=== PATIENT | female | born 1930 | race Caucasian/White ===

== ENCOUNTER 2018-06-26 08:14 | Inpatient (IN) | payer MEDICARE ==
[~2018-06-26] VITALS: Ht 165.1 cm; Wt 75.4 kg
[2018-06-26] VITALS (12 sets, daily range): BP systolic 73–132; BP diastolic 36–65
[~2018-06-26 08:14] MED LIST: ALEN70TA3 PO; ALLO300T PO; AMLO10TA6 PO; ASCO500T3 PO; ASPI-482 PO; CARV25TA2 PO; CHOL10003 PO; CYAN10005 PO; DONE10TA61 PO; DULO30CA2 PO; ENAL20TA4 PO; FERR325T3 PO; FURO-68 PO; GLIP5TAB10 PO; LEVO100T PO; MEMA10TA PO; MULT-208 PO; OXYB5TAB33 PO
--- NOTE | 2018-06-26 08:41 | EKG ---
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
[2018-06-26 08:53] LABS: BASO % 0 % (0-3); EOS # 0.1 x10^3/uL (0.0-0.7); EOS % 0 % (0-3); HEMATOCRIT 36.5 % (36.0-47.0); HEMOGLOBIN 11.7 g/dL (12.0-15.5); LYMPH # 1.1 x10^3/uL (1.0-4.8); LYMPH % 8 % (24-48); MEAN CORPUSCULAR HEMOGLOBIN 31 pg (25-35); MEAN CORPUSCULAR HGB CONC 32 g/dL (31-37); MEAN CORPUSCULAR VOLUME 95 fL (79-100); MONO # 0.3 x10^3/uL (0.0-1.1); MONO % 3 % (0-9); NEUT # 11.8 x10^3uL (1.8-7.7); NEUT % 89 % (31-73); PLATELET COUNT 238 x10^3/uL (140-400); RED BLOOD COUNT 3.85 x10^6/uL (3.50-5.40); RED CELL DISTRIBUTION WIDTH 14.5 % (11.5-14.5); WHITE BLOOD COUNT 13.3 x10^3/uL (4.0-11.0)
--- NOTE | 2018-06-26 08:54 | RAD ---
Portable chest, 06/26/2018: HISTORY: Altered mental status, hypothermia Comparison is made to a study from 12/01/2017. The patient is rotated to the left. The patient positioning is kyphotic. The heart is at the upper limits of normal in size. There is extensive calcific plaquing of the aorta. There is mild left basilar atelectasis/infiltrate. The upper lung gamino are clear. No pleural fluid is seen. IMPRESSION: 1. Mild left basilar atelectasis/infiltrate. 2. Follow-up PA and lateral chest radiographs would better delineate the basilar findings, if clinically indicated. Electronically signed by: Jj Arcos MD (06/26/2018 8:51 AM) [facility]
[2018-06-26 09:00] LABS: BILIRUBIN,URINE NEGATIVE (NEG); CLARITY,URINE CLEAR; COLOR,URINE YELLOW; NITRITE,URINE POSITIVE (NEG); PROTEIN,URINE NEGATIVE (NEG-TRACE); UROBILINOGEN,URINE 0.2 mg/dL (0.2 mg/dL)
[2018-06-26 09:02] LABS: PROTHROMBIN TIME PATIENT 13.8 SEC (11.7-14.0)
[2018-06-26 09:06] LABS: CALCIUM 9.1 mg/dL (8.5-10.1); CREATININE 1.7 mg/dL (0.6-1.0); GFR 28.4
[2018-06-26 09:08] LABS: ALBUMIN 3.6 g/dL (3.4-5.0); ALBUMIN/GLOBULIN RATIO 1.2 (1.0-1.7); MAGNESIUM 1.9 mg/dL (1.8-2.4); TOTAL BILIRUBIN 0.7 mg/dL (0.2-1.0); TOTAL PROTEIN 6.7 g/dL (6.4-8.2)
--- NOTE | 2018-06-26 09:09 | PHYS DOC ---
Past Medical History Past Medical History: Cancer, CHF, COPD, [place], Other Additional Past Medical Histor: BONE CANCER - PT POOR HISTORIAN Past Surgical History: Other Additional Past Surgical Histo: R LOWER LEG Alcohol Use: None Drug Use: None Adult General Chief Complaint Chief Complaint: COLD EXPOSURE HPI HPI Patient is an 87-year-old female who presents via EMS after reportedly being found outside very confused by patient's children. Patient apparently had gotten locked out of her home last night and was found sleeping under an awning. EMS reports that they were unable to obtain a temperature on the patient. Upon arrival patient clearly confused, denies pain. Additional history is limited due to patient's mental status. Review of Systems Review of Systems Respiratory: Denies shortness of breath [] Cardiovascular: Denies chest pain[] GI: Denies abdominal pain [] Neurologic: Positive mental status change[] Unable to fully assess review of systems due to patient's middle status. Current Medications Current Medications Current Medications Medications (Trade) Dose Ordered Sig/Robe Start Time Stop Time Status Last Admin Dose Admin Ceftriaxone Sodium 50 ml @ 100 mls/hr 1X ONCE 06/26/18 09:30 06/26/18 09:59 DC 06/26/18 09:56 100 MLS/HR Insulin Human Regular (HumuLIN R VIAL) 6 unit 1X ONCE 06/26/18 09:30 06/26/18 09:31 DC 06/26/18 09:54 6 UNIT Sodium Chloride 1,000 ml @ 1,000 mls/hr 1X ONCE 06/26/18 09:15 06/26/18 10:14 DC 06/26/18 09:55 1,000 MLS/HR Allergies Allergies Allergies Coded Allergies Type Severity Reaction Last Updated Verified No Known Drug Allergies 11/14/16 No Physical Exam Physical Exam Constitutional: Well developed, well nourished, no acute distress, non-toxic appearance. [] HENT: Normocephalic, atraumatic, bilateral external ears normal, oropharynx moist, no oral exudates, nose normal. [] Eyes: PERRLA, EOMI. [] Neck: Normal range of motion, no tenderness, supple, no stridor. [] Cardiovascular:Heart rate regular rhythm [] Lungs & Thorax: Bilateral breath sounds clear to auscultation [] Abdomen: Bowel sounds normal, soft, no tenderness. [] Skin: Cool, dry. There are abrasions with moderate breakdown of skin over bilateral knees and dorsum of toes of both feet. [] Extremities: No cyanosis, no clubbing, ROM intact, lower extremity edema is noted bilaterally. [] Neurologic: Confused. Patient moves all 4 extremities. Unable to fully assess neurological status due to patient's mental state. [] Current Patient Data Vital Signs Vital Signs Date Time Temp Pulse Resp B/P (MAP) Pulse Ox O2 Delivery O2 Flow Rate FiO2 06/26/18 08:30 82 146/70 (95) 98 Nasal Cannula 3.0 06/26/18 08:14 89.5 18 89.5 Lab Values Laboratory Tests Test 06/26/18 08:22 06/26/18 08:38 06/26/18 08:52 Glucose (Fingerstick) 428 mg/dL (70-99) H White Blood Count 13.3 x10^3/uL (4.0-11.0) H Red Blood Count 3.85 x10^6/uL (3.50-5.40) Hemoglobin 11.7 g/dL (12.0-15.5) L Hematocrit 36.5 % (36.0-47.0) Mean Corpuscular Volume 95 fL (79-100) Mean Corpuscular Hemoglobin 31 pg (25-35) Mean Corpuscular Hemoglobin Concent 32 g/dL (31-37) Red Cell Distribution Width 14.5 % (11.5-14.5) Platelet Count 238 x10^3/uL (140-400) Neutrophils (%) (Auto) 89 % (31-73) H Lymphocytes (%) (Auto) 8 % (24-48) L Monocytes (%) (Auto) 3 % (0-9) Eosinophils (%) (Auto) 0 % (0-3) Basophils (%) (Auto) 0 % (0-3) Neutrophils # (Auto) 11.8 x10^3uL (1.8-7.7) H Lymphocytes # (Auto) 1.1 x10^3/uL (1.0-4.8) Monocytes # (Auto) 0.3 x10^3/uL (0.0-1.1) Eosinophils # (Auto) 0.1 x10^3/uL (0.0-0.7) Basophils # (Auto) 0.0 x10^3/uL (0.0-0.2) Platelet Estimate Pending Prothrombin Time 13.8 SEC (11.7-14.0) Prothrombin Time INR 1.1 (0.8-1.1) Sodium Level 139 mmol/L (136-145) Potassium Level 5.0 mmol/L (3.5-5.1) Chloride Level 99 mmol/L (98-107) Carbon Dioxide Level 30 mmol/L (21-32) Anion Gap 10 (6-14) Blood Urea Nitrogen 38 mg/dL (7-20) H Creatinine 1.7 mg/dL (0.6-1.0) H Estimated GFR (Cockcroft-Gault) 28.4 BUN/Creatinine Ratio 22 (6-20) H Glucose Level 425 mg/dL (70-99) H Calcium Level 9.1 mg/dL (8.5-10.1) Magnesium Level 1.9 mg/dL (1.8-2.4) Total Bilirubin 0.7 mg/dL (0.2-1.0) Aspartate Amino Transferase (AST) 16 U/L (15-37) Alanine Aminotransferase (ALT) 21 U/L (14-59) Alkaline Phosphatase 212 U/L (46-116) H Ammonia 11 mcmol/L (11-34) Creatine Kinase 193 U/L (26-192) H Creatine Kinase MB (Mass) 3.1 ng/mL (0.0-3.6) Creatine Kinase MB Relative Index 1.6 % (0-4) Troponin I Quantitative < 0.017 ng/mL (0.000-0.055) Total Protein 6.7 g/dL (6.4-8.2) Albumin 3.6 g/dL (3.4-5.0) Albumin/Globulin Ratio 1.2 (1.0-1.7) Urine Collection Type U cath Urine Color Yellow Urine Clarity Clear Urine pH 6.0 Urine Specific [place] 1.015 Urine Protein Negative mg/dL (NEG-TRACE) Urine Glucose (UA) 100 mg/dL (NEG) Urine Ketones (Stick) Negative mg/dL (NEG) Urine Blood Negative (NEG) Urine Nitrite Positive (NEG) Urine Bilirubin Negative (NEG) Urine Urobilinogen Dipstick 0.2 mg/dL (0.2 mg/dL) Urine Leukocyte Esterase Negative (NEG) Urine RBC Rare /HPF (0-2) Urine WBC Rare /HPF (0-4) Urine Squamous Epithelial Cells Occ /LPF Urine Amorphous Sediment Present /HPF Urine Bacteria Many /HPF (0-FEW) Laboratory Tests 06/26/18 08:38 Laboratory Tests 06/26/18 08:38 EKG EKG [] Interpretation Time: EKG demonstrates normal sinus rhythm with heart rate of 80. Radiology/Procedures Radiology/Procedures [] Impressions: CT head demonstrates no acute process. Portable chest x-ray demonstrates findings of left basilar atelectasis versus infiltrate Course & Med Decision Making Course & Med Decision Making Pertinent Labs and Imaging studies reviewed. (See chart for details) [] Dragon Disclaimer Dragon Disclaimer This electronic medical record was generated, in whole or in part, using a voice recognition dictation system. Departure Departure Impression: Primary Impression: Hypothermia Additional Impression: Urinary tract infection Disposition: ADMITTED INPATIENT Admitting Physician: Nikita Hensley Condition: IMPROVED Referrals: DOROTEO CISNEROS MD (PCP) Problem Qualifiers Primary Impression: Hypothermia Encounter type: initial encounter Qualified Codes: T68.XXXA - Hypothermia, initial encounter Additional Impression: Urinary tract infection Urinary tract infection type: site unspecified Hematuria presence: without hematuria Qualified Codes: N39.0 - Urinary tract infection, site not specified CHANDRA HOLLINS Jr., DO Jun 26, 2018 09:09
[2018-06-26 09:13] LABS: AMORPHOUS SEDIMENT,UR PRESENT /HPF; BACTERIA,URINE MANY /HPF (0-FEW); RBC,URINE RARE /HPF (0-2); SQUAMOUS EPITHELIAL CELL,UR OCC /LPF; WBC,URINE RARE /HPF (0-4)
[2018-06-26] MEDS ORDERED: IV NORMAL SALINE 1000ML BAG 1,000 ML IV ONE ×2 (09:15→12:00)
[2018-06-26] MEDS ORDERED: INSULIN REGULAR 100 UNIT/ML 3ML VIAL. IV ONE (09:30)
--- NOTE | 2018-06-26 09:46 | RAD ---
CT HEAD WO CONTRAST Indication: Disoriented. Altered mental status. Exposure: One or more of the following individualized dose reduction techniques were utilized for this examination: 1. Automated exposure control 2. Adjustment of the mA and/or kV according to patient size 3. Use of iterative reconstruction technique. Comparison: Images from November 12, 2017, report is not available. Contrast: None FINDINGS: Mild patchy hypodensity in the cerebellum, unchanged, likely due to chronic ischemia. No evidence of acute intracranial hemorrhage or abnormal extra-axial fluid collection. No evidence of mass effect or midline shift. Low-density in the white matter bilaterally, a nonspecific finding, but which is commonly due to chronic small vessel ischemic disease in a patient of this age. Prominence of ventricles and sulci, compatible with involutional change or atrophy. Intracranial arterial calcifications are identified. Several well-defined low-attenuation foci in the bilateral white matter, likely due to chronic lacunar infarcts, also seen on prior study. Area of right posterior parietal low-attenuation is also unchanged, compatible with chronic encephalomalacia. Visualized orbits are unremarkable. Visualized paranasal sinuses and mastoids are clear. No acute calvarial abnormality. Impression: Chronic findings, stable since prior study. No acute intracranial hemorrhage or mass effect. Electronically signed by: Radames Faye MD (06/26/2018 9:43 AM) [facility]
[2018-06-26 10:41] LABS: % BANDS 1 % (0-9); % BASOS 2 % (0-3); % EOS 1 % (0-5); % LYMPHS 12 % (24-48); % MONOS 6 % (0-10); % SEGS 78 % (35-66)
[2018-06-26 10:43] LABS: PLT ESTIMATE ADEQUATE (ADEQUATE)
--- NOTE | 2018-06-26 12:19 | HP ---
ADMIT DATE: 06/26/2018 CHIEF COMPLAINT: Found in the cold. HISTORY OF PRESENT ILLNESS: The patient is a pleasant 87-year-old female who lives by herself, but she does have dementia. She has never wanted to wait before, but last night apparently, she got out. It got pretty cold last night, down into the 40. She was found this morning, sitting on her knees, hold onto her walker. Her knees are scuffed up. The top of her toes are scuffed up. She is hypothermic with a temperature of 89. I have discussed the case with the ER physician. We are going to admit the patient with a Alexis Hugger to warm her up and give her some fluids. 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 ALLERGIES: None. FAMILY HISTORY: Hypertension. SOCIAL HISTORY: She has dementia. She lives alone. No drinking, smoking or drugs. MEDICATIONS: Reviewed, please refer to the MRAD. REVIEW OF SYSTEMS: Unable to obtain. The patient is too confused. PHYSICAL EXAMINATION: VITAL SIGNS: Temperature was 89 when she arrived. We got her up to 97 now, pulse 80-100, respirations 20, blood pressure ranging from 112-153. GENERAL: She is awake, confused. HEART: Normal S1, S2. LUNGS: Clear. ABDOMEN: Soft. EXTREMITIES: 1+ edema. The toes and knees are quite scraped up, please see the pictures. ENDOCRINE: No thyromegaly. LYMPHATICS: No cervical nodes. HEMATOPOIETIC: No bruising. LABORATORY DATA: White count is 13, hemoglobin 11.7, and platelets 238. Ammonia level is normal at 11. CPK 193, anion gap was 10. Sodium 139, potassium 5, chloride 99, bicarbonate 30, BUN 38, creatinine 1.7. ASSESSMENT AND PLAN: Hypothermia, skin abrasions, progression of dementia, electrolyte disturbance, leukocytosis, anemia. The patient has been admitted to the ICU. She was quite ill when she got here. She is improving already. We got her on a Alexis Hugger to warm her up. IV fluids, PT, OT, aggressive wound care. I consulted Dr. Satish Meraz and I did call her. She is going to see the patient today or tomorrow. Urine culture. Full code. Continue home medicines, frequent labs, empiric IV antibiotics. REBECCAL Michael RIDDLE DO DR: CELIA/mariana JOB#: [id number] / [id number]
[2018-06-26] MEDS ORDERED: AMLO10TA6 PO (13:31)
[2018-06-26] MEDS ORDERED: POTA20TA82 PO (13:32)
[2018-06-26] MEDS: IV NORMAL SALINE 1000ML BAG 1,000 ML IV SCH (15:18)
[2018-06-26] MEDS: ACETAMINOPHEN 325 MG TABLET. PO PRN (15:18)
--- NOTE | 2018-06-26 16:15 | PDOC2 ---
CARDIAC CONSULT DATE OF CONSULT Date of Consult DATE: 06/26/18 TIME: 15:53 REASON FOR CONSULT Reason for Consult: CHF REFERRING PHYSICIAN Referring Physician: Ayden SOURCE Source: Caregiver (daughter), Chart review HISTORY OF PRESENT ILLNESS HISTORY OF PRESENT ILLNESS This is an 87 yo female admitted for increased confusion. He was accidentally locked out of her home last night and was sleeping outside in the awning. Pt is a poor historian. Initially she was noted with hypothermia as the outdoor temp overnight was in the 40s. She said that the last thing she remembered was falling outside her door. She does not remember passing out and the fall was nontraumatic but notable for abrasions and superficial skin tears. It is unknown the duration of her being outside but she was finally found by her daughter outside on her knees and called for help. Her daughter has been the one preparing her medications and she has been taking her meds except that her DM meds have been discontinued. She is presently laying flat without difficulty and there has been no signs of her being SOA, CP lately but daughter has noted that she has been more confused lately. PAST MEDICAL HISTORY Past Medical History Cardiovascular: CHF, HTN CENTRAL NERVOUS SYSTEM: Dementia, old lacunar infarct GI: No pertinent hx Heme/Onc: Cancer (bone) Hepatobiliary: No pertinent hx Psych: No pertinent hx Musculoskeletal: Osteoarthritis Rheumatologic: Gout ENT: No pertinent hx Renal/: Chronic renal insuff Endocrine: Diabetes Dermatology: No pertinent hx PAST SURGICAL HISTORY Past Surgical History Hernia Repair, Total knee replacement (bilateral ), Other (right leg, ankle) FAMILY HISTORY Family History: Heart Disease, Hypertension SOCIAL HISTORY Smoke: No ALCOHOL: none Drugs: None Lives: Alone CURRENT MEDICATIONS CURRENT MEDICATIONS Current Medications Medications (Trade) Dose Ordered Sig/Robe Route PRN Reason Start Time Stop Time Status Last Admin Dose Admin Sodium Chloride 1,000 ml @ 1,000 mls/hr 1X ONCE IV 06/26/18 09:15 06/26/18 10:14 DC 06/26/18 09:55 Insulin Human Regular (HumuLIN R VIAL) 6 unit 1X ONCE IV 06/26/18 09:30 06/26/18 09:31 DC 06/26/18 09:54 Ceftriaxone Sodium 50 ml @ 100 mls/hr 1X ONCE IV 06/26/18 09:30 06/26/18 09:59 DC 06/26/18 09:56 Sodium Chloride 1,000 ml @ 1,000 mls/hr 1X ONCE IV 06/26/18 12:00 06/26/18 12:59 DC 06/26/18 11:00 Sodium Chloride 1,000 ml @ 50 mls/hr Q20H IV 06/26/18 14:45 06/26/18 15:18 Acetaminophen (Tylenol) 650 mg PRN Q6HRS PRN PO MILD PAIN 06/26/18 15:15 06/26/18 15:18 ALLERGIES ALLERGIES: Coded Allergies: No Known Drug Allergies (Unverified , 11/14/16) ROS Review of System unreliable, poor historian PHYSICAL EXAM General: Alert, Cooperative, No acute distress HEENT: Atraumatic, Mucous membr. moist/pink Lungs: Other (diminished bases) Heart: Regular rate (SR), Other (2/6 systolic apical murmur) Abdomen: Soft Extremities: No cyanosis, Other (trace LE) Skin: Other (multiple LE abrasion with small left periorbital ecchymoses) Neuro: Normal speech, Sensation intact Psych/Mental Status: Mental status NL, Mood NL MUSCULOSKELETAL: Osteoarthritic changes both hands VITALS VITALS Vital Signs Date Time Temp Pulse Resp B/P (MAP) Pulse Ox O2 Delivery O2 Flow Rate FiO2 06/26/18 15:00 91 18 111/62 (78) 92 Nasal Cannula 3.0 06/26/18 14:00 97.9 97.9 LABS Lab: Laboratory Tests Test 06/26/18 08:22 06/26/18 08:38 06/26/18 08:52 06/26/18 13:55 Glucose (Fingerstick) 428 mg/dL (70-99) 250 mg/dL (70-99) White Blood Count 13.3 x10^3/uL (4.0-11.0) Red Blood Count 3.85 x10^6/uL (3.50-5.40) Hemoglobin 11.7 g/dL (12.0-15.5) Hematocrit 36.5 % (36.0-47.0) Mean Corpuscular Volume 95 fL (79-100) Mean Corpuscular Hemoglobin 31 pg (25-35) Mean Corpuscular Hemoglobin Concent 32 g/dL (31-37) Red Cell Distribution Width 14.5 % (11.5-14.5) Platelet Count 238 x10^3/uL (140-400) Neutrophils (%) (Auto) 89 % (31-73) Lymphocytes (%) (Auto) 8 % (24-48) Monocytes (%) (Auto) 3 % (0-9) Eosinophils (%) (Auto) 0 % (0-3) Basophils (%) (Auto) 0 % (0-3) Neutrophils # (Auto) 11.8 x10^3uL (1.8-7.7) Lymphocytes # (Auto) 1.1 x10^3/uL (1.0-4.8) Monocytes # (Auto) 0.3 x10^3/uL (0.0-1.1) Eosinophils # (Auto) 0.1 x10^3/uL (0.0-0.7) Basophils # (Auto) 0.0 x10^3/uL (0.0-0.2) Segmented Neutrophils % 78 % (35-66) Band Neutrophils % 1 % (0-9) Lymphocytes % 12 % (24-48) Monocytes % 6 % (0-10) Eosinophils % 1 % (0-5) Basophils % 2 % (0-3) Platelet Estimate Adequate (ADEQUATE) Prothrombin Time 13.8 SEC (11.7-14.0) Prothromb Time International Ratio 1.1 (0.8-1.1) Sodium Level 139 mmol/L (136-145) Potassium Level 5.0 mmol/L (3.5-5.1) Chloride Level 99 mmol/L (98-107) Carbon Dioxide Level 30 mmol/L (21-32) Anion Gap 10 (6-14) Blood Urea Nitrogen 38 mg/dL (7-20) Creatinine 1.7 mg/dL (0.6-1.0) Estimated GFR (Cockcroft-Gault) 28.4 BUN/Creatinine Ratio 22 (6-20) Glucose Level 425 mg/dL (70-99) Lactic Acid Level 2.8 mmol/L (0.4-2.0) Calcium Level 9.1 mg/dL (8.5-10.1) Magnesium Level 1.9 mg/dL (1.8-2.4) Total Bilirubin 0.7 mg/dL (0.2-1.0) Aspartate Amino Transf (AST/SGOT) 16 U/L (15-37) Alanine Aminotransferase (ALT/SGPT) 21 U/L (14-59) Alkaline Phosphatase 212 U/L (46-116) Ammonia 11 mcmol/L (11-34) Creatine Kinase 193 U/L (26-192) Creatine Kinase MB (Mass) 3.1 ng/mL (0.0-3.6) Creatine Kinase MB Relative Index 1.6 % (0-4) Troponin I Quantitative < 0.017 ng/mL (0.000-0.055) Total Protein 6.7 g/dL (6.4-8.2) Albumin 3.6 g/dL (3.4-5.0) Albumin/Globulin Ratio 1.2 (1.0-1.7) Urine Collection Type U cath Urine Color Yellow Urine Clarity Clear Urine pH 6.0 Urine Specific [place] 1.015 Urine Protein Negative mg/dL (NEG-TRACE) Urine Glucose (UA) 100 mg/dL (NEG) Urine Ketones (Stick) Negative mg/dL (NEG) Urine Blood Negative (NEG) Urine Nitrite Positive (NEG) Urine Bilirubin Negative (NEG) Urine Urobilinogen Dipstick 0.2 mg/dL (0.2 mg/dL) Urine Leukocyte Esterase Negative (NEG) Urine RBC Rare /HPF (0-2) Urine WBC Rare /HPF (0-4) Urine Squamous Epithelial Cells Occ /LPF Urine Amorphous Sediment Present /HPF Urine Bacteria Many /HPF (0-FEW) Test 06/26/18 14:05 Lactic Acid Level 3.2 mmol/L (0.4-2.0) ECHOCARDIOGRAM ECHOCARDIOGRAM <Conclusion> The left ventricular systolic function is normal and the ejection fraction is within normal range. EF 55% There is grossly normal LV segmental wall motion. DATE: 11/13/17 1212 ASSESSMENT/PLAN ASSESSMENT/PLAN 1. Sepsis with recurrent UTI and possible pneumonia. 2. Hypothermia: with outdoor cold exposure, better. 3. Metabolic encephalopathy with underlying dementia 4. Chronic diastolic CHF: compensated. Last EF at 55% 5. HTN: hypotensive episodes. 6. JANNETTE with suspect CKD3: prerenal with volume depletion 7. DM2/HLP: BG uncontrolled, has not been taking her sulfonylureas as this has been discontinued as an outpt. 8. Hypothyroidism 9. Nontraumatic fall: noted with abrasions and lacerations. Unclear for any concussion or syncopal spell as pt has dementia. Recommendations 1. Antibiotic therapy per PCP, IV hydration 2. Restart cardiac meds once volume is repleted. 3. Check TSH, pro NT-BNP 4. Supportive care. Will need alarm system if pt is to live alone, discuss with daughter. MELODY MI USER EXPERIENCE ARCHITECT Jun 26, 2018 16:15
[2018-06-26] MEDS: LACTOBACILLUS RHAMNOSUS GG 1 CAPSULE. PO SCH (21:00)
[2018-06-26] MEDS ORDERED: MORPHINE SULFATE 2 MG/ML VIAL. IV PRN (21:45)
[2018-06-27] VITALS (15 sets, daily range): BP systolic 105–216; BP diastolic 52–122
[2018-06-27] MEDS: ACETAMINOPHEN 325 MG TABLET. PO PRN (05:35)
[2018-06-27 05:52] LABS: CALCIUM 8.6 mg/dL (8.5-10.1); CREATININE 1.3 mg/dL (0.6-1.0); GFR 38.7; MAGNESIUM 1.9 mg/dL (1.8-2.4); POTASSIUM 3.7 mmol/L (3.5-5.1)
[2018-06-27] MEDS: IV NORMAL SALINE 1000ML BAG 1,000 ML IV SCH (07:58)
--- NOTE | 2018-06-27 09:06 | PDOC ---
Infectious Disease Note Vital Sign Vital Signs Vital Signs Date Time Temp Pulse Resp B/P (MAP) Pulse Ox O2 Delivery O2 Flow Rate FiO2 06/27/18 08:10 95 18 216/122 (153) 97 06/27/18 08:00 Nasal Cannula 3.0 06/27/18 07:00 98.7 98.7 Labs Lab Laboratory Tests Test 06/26/18 08:52 06/26/18 13:55 06/26/18 14:05 06/26/18 16:18 Urine Collection Type U cath Urine Color Yellow Urine Clarity Clear Urine pH 6.0 Urine Specific [place] 1.015 Urine Protein Negative mg/dL (NEG-TRACE) Urine Glucose (UA) 100 mg/dL (NEG) Urine Ketones (Stick) Negative mg/dL (NEG) Urine Blood Negative (NEG) Urine Nitrite Positive (NEG) Urine Bilirubin Negative (NEG) Urine Urobilinogen Dipstick 0.2 mg/dL (0.2 mg/dL) Urine Leukocyte Esterase Negative (NEG) Urine RBC Rare /HPF (0-2) Urine WBC Rare /HPF (0-4) Urine Squamous Epithelial Cells Occ /LPF Urine Amorphous Sediment Present /HPF Urine Bacteria Many /HPF (0-FEW) Glucose (Fingerstick) 250 mg/dL (70-99) Lactic Acid Level 3.2 mmol/L (0.4-2.0) JB-Vpq-X-Type Natriuretic Peptide 432 pg/mL (0-449) Thyroid Stimulating Hormone (TSH) 2.555 uIU/mL (0.358-3.74) Test 06/26/18 17:57 06/27/18 05:00 Glucose (Fingerstick) 176 mg/dL (70-99) Sodium Level 140 mmol/L (136-145) Potassium Level 3.7 mmol/L (3.5-5.1) Chloride Level 104 mmol/L (98-107) Carbon Dioxide Level 29 mmol/L (21-32) Anion Gap 7 (6-14) Blood Urea Nitrogen 29 mg/dL (7-20) Creatinine 1.3 mg/dL (0.6-1.0) Estimated GFR (Cockcroft-Gault) 38.7 Glucose Level 172 mg/dL (70-99) Calcium Level 8.6 mg/dL (8.5-10.1) Magnesium Level 1.9 mg/dL (1.8-2.4) Objective Assessment Hypothermia - improved Lactic acidosis Leukocytosis Bacteriuria Mild left basilar atelectasis/infiltrate Multiple wounds s/p fall Dementia COPD, O2 dependent CKD stage 3 HTN DM Hypothyroidism Plan Plan of Care Rocephin for now Repeat labs Check procalcitonin f/u cultures Local wound care D/w family D/w RN Thank you [phone] Attending Co-Sign The patient was seen and interviewed as well as examined at the bedside. The chart was reviewed. The case was discussed. Agree with the plan of care. KELSY FAROOQ APRN Jun 27, 2018 09:06 CANDACE LONDONO MD Jun 28, 2018 14:49
[2018-06-27] MEDS: LACTOBACILLUS RHAMNOSUS GG 1 CAPSULE. PO SCH ×2 (09:37→20:57)
[2018-06-27 10:02] LABS: BASO % 1 % (0-3); EOS # 0.1 x10^3/uL (0.0-0.7); EOS % 2 % (0-3); HEMATOCRIT 30.4 % (36.0-47.0); HEMOGLOBIN 10.2 g/dL (12.0-15.5); LYMPH # 0.6 x10^3/uL (1.0-4.8); LYMPH % 9 % (24-48); MEAN CORPUSCULAR HEMOGLOBIN 32 pg (25-35); MEAN CORPUSCULAR HGB CONC 34 g/dL (31-37); MEAN CORPUSCULAR VOLUME 94 fL (79-100); MONO # 0.5 x10^3/uL (0.0-1.1); MONO % 7 % (0-9); NEUT # 5.4 x10^3uL (1.8-7.7); NEUT % 81 % (31-73); PLATELET COUNT 166 x10^3/uL (140-400); RED BLOOD COUNT 3.23 x10^6/uL (3.50-5.40); RED CELL DISTRIBUTION WIDTH 14.7 % (11.5-14.5); WHITE BLOOD COUNT 6.6 x10^3/uL (4.0-11.0)
[2018-06-27] MEDS: cefTRIAXone IV Push 1 GM VIAL. IVP SCH (10:54)
[2018-06-27] MEDS ORDERED: LACTOBACILLUS RHAMNOSUS GG 1 CAPSULE. PO SCH (12:00)
[2018-06-27] MEDS ORDERED: ACETAMINOPHEN 325 MG TABLET. PO ONE (12:45)
--- NOTE | 2018-06-27 12:46 | PDOC ---
PROGRESS NOTES Chief Complaint Chief Complaint Hypothermia - improved Lactic acidosis Leukocytosis Bacteriuria Mild left basilar atelectasis/infiltrate Multiple wounds s/p fall Dementia COPD, O2 dependent CKD stage 3 HTN DM Hypothyroidism FAll at home DNR History of Present Illness History of Present Illness BILateral feet wounds with some bruising on the right lateral foot Discussed with podiatry at bedside - toenail clipping being done- able to see the toe wounds We're unsure if she actually curled her toes up or hyper flexed or extended in a funny way during the fall Patient has high pain tolerance Pain controlled by Tylenol Patient lives alone at home Now normothermic Cardiology note reviewed DNR Agreeable to SNU or rehabilitation if needed as discussed with family Plan: X-ray the foot Social work consult for SNU screen Okay to transfer out of ICU Tylenol now Home meds I have reconciled including dementia meds DNR Dw fam at bedside and podiatry Vitals Vitals Vital Signs Date Time Temp Pulse Resp B/P (MAP) Pulse Ox O2 Delivery O2 Flow Rate FiO2 06/27/18 11:00 99.0 99 18 136/71 (92) 97 Nasal Cannula 3.0 99.0 Physical Exam General: Alert, Cooperative, No acute distress Heart: Regular rate (SR), Other (2/6 systolic apical murmur) Lungs: Clear Abdomen: Soft Extremities: No cyanosis, Other (trace LE) Skin: Other (multiple LE abrasion with small left periorbital ecchymoses) Labs LABS Laboratory Tests Test 06/26/18 13:55 06/26/18 14:05 06/26/18 15:00 06/26/18 16:18 Glucose (Fingerstick) 250 mg/dL (70-99) Lactic Acid Level 3.2 mmol/L (0.4-2.0) Nasal Screen MRSA (PCR) Negative (Negative) [id number]-Type Natriuretic Peptide 432 pg/mL (0-449) Thyroid Stimulating Hormone (TSH) 2.555 uIU/mL (0.358-3.74) Test 06/26/18 17:57 06/27/18 05:00 06/27/18 09:45 Glucose (Fingerstick) 176 mg/dL (70-99) Sodium Level 140 mmol/L (136-145) Potassium Level 3.7 mmol/L (3.5-5.1) Chloride Level 104 mmol/L (98-107) Carbon Dioxide Level 29 mmol/L (21-32) Anion Gap 7 (6-14) Blood Urea Nitrogen 29 mg/dL (7-20) Creatinine 1.3 mg/dL (0.6-1.0) Estimated GFR (Cockcroft-Gault) 38.7 Glucose Level 172 mg/dL (70-99) Calcium Level 8.6 mg/dL (8.5-10.1) Magnesium Level 1.9 mg/dL (1.8-2.4) White Blood Count 6.6 x10^3/uL (4.0-11.0) Red Blood Count 3.23 x10^6/uL (3.50-5.40) Hemoglobin 10.2 g/dL (12.0-15.5) Hematocrit 30.4 % (36.0-47.0) Mean Corpuscular Volume 94 fL (79-100) Mean Corpuscular Hemoglobin 32 pg (25-35) Mean Corpuscular Hemoglobin Concent 34 g/dL (31-37) Red Cell Distribution Width 14.7 % (11.5-14.5) Platelet Count 166 x10^3/uL (140-400) Neutrophils (%) (Auto) 81 % (31-73) Lymphocytes (%) (Auto) 9 % (24-48) Monocytes (%) (Auto) 7 % (0-9) Eosinophils (%) (Auto) 2 % (0-3) Basophils (%) (Auto) 1 % (0-3) Neutrophils # (Auto) 5.4 x10^3uL (1.8-7.7) Lymphocytes # (Auto) 0.6 x10^3/uL (1.0-4.8) Monocytes # (Auto) 0.5 x10^3/uL (0.0-1.1) Eosinophils # (Auto) 0.1 x10^3/uL (0.0-0.7) Basophils # (Auto) 0.0 x10^3/uL (0.0-0.2) Lactic Acid Level 0.4 mmol/L (0.4-2.0) Procalcitonin 6.29 ng/mL (0.00-0.10) Review of Systems Review of Systems Bilateral feet pain otherwise the rest of ROS 14 point negative Assessment and Plan Assessmemt and Plan Problems Medical Problems: (1) Hypothermia Status: Acute (2) Urinary tract infection Status: Acute Comment Review of Relevant I have reviewed the following items alexei (where applicable) has been applied. Labs Laboratory Tests Test 06/26/18 08:22 06/26/18 08:38 06/26/18 08:52 06/26/18 13:55 Glucose (Fingerstick) 428 mg/dL (70-99) 250 mg/dL (70-99) White Blood Count 13.3 x10^3/uL (4.0-11.0) Red Blood Count 3.85 x10^6/uL (3.50-5.40) Hemoglobin 11.7 g/dL (12.0-15.5) Hematocrit 36.5 % (36.0-47.0) Mean Corpuscular Volume 95 fL (79-100) Mean Corpuscular Hemoglobin 31 pg (25-35) Mean Corpuscular Hemoglobin Concent 32 g/dL (31-37) Red Cell Distribution Width 14.5 % (11.5-14.5) Platelet Count 238 x10^3/uL (140-400) Neutrophils (%) (Auto) 89 % (31-73) Lymphocytes (%) (Auto) 8 % (24-48) Monocytes (%) (Auto) 3 % (0-9) Eosinophils (%) (Auto) 0 % (0-3) Basophils (%) (Auto) 0 % (0-3) Neutrophils # (Auto) 11.8 x10^3uL (1.8-7.7) Lymphocytes # (Auto) 1.1 x10^3/uL (1.0-4.8) Monocytes # (Auto) 0.3 x10^3/uL (0.0-1.1) Eosinophils # (Auto) 0.1 x10^3/uL (0.0-0.7) Basophils # (Auto) 0.0 x10^3/uL (0.0-0.2) Segmented Neutrophils % 78 % (35-66) Band Neutrophils % 1 % (0-9) Lymphocytes % 12 % (24-48) Monocytes % 6 % (0-10) Eosinophils % 1 % (0-5) Basophils % 2 % (0-3) Platelet Estimate Adequate (ADEQUATE) Prothrombin Time 13.8 SEC (11.7-14.0) Prothromb Time International Ratio 1.1 (0.8-1.1) Sodium Level 139 mmol/L (136-145) Potassium Level 5.0 mmol/L (3.5-5.1) Chloride Level 99 mmol/L (98-107) Carbon Dioxide Level 30 mmol/L (21-32) Anion Gap 10 (6-14) Blood Urea Nitrogen 38 mg/dL (7-20) Creatinine 1.7 mg/dL (0.6-1.0) Estimated GFR (Cockcroft-Gault) 28.4 BUN/Creatinine Ratio 22 (6-20) Glucose Level 425 mg/dL (70-99) Lactic Acid Level 2.8 mmol/L (0.4-2.0) Calcium Level 9.1 mg/dL (8.5-10.1) Magnesium Level 1.9 mg/dL (1.8-2.4) Total Bilirubin 0.7 mg/dL (0.2-1.0) Aspartate Amino Transf (AST/SGOT) 16 U/L (15-37) Alanine Aminotransferase (ALT/SGPT) 21 U/L (14-59) Alkaline Phosphatase 212 U/L (46-116) Ammonia 11 mcmol/L (11-34) Creatine Kinase 193 U/L (26-192) Creatine Kinase MB (Mass) 3.1 ng/mL (0.0-3.6) Creatine Kinase MB Relative Index 1.6 % (0-4) Troponin I Quantitative < 0.017 ng/mL (0.000-0.055) Total Protein 6.7 g/dL (6.4-8.2) Albumin 3.6 g/dL (3.4-5.0) Albumin/Globulin Ratio 1.2 (1.0-1.7) Urine Collection Type U cath Urine Color Yellow Urine Clarity Clear Urine pH 6.0 Urine Specific [place] 1.015 Urine Protein Negative mg/dL (NEG-TRACE) Urine Glucose (UA) 100 mg/dL (NEG) Urine Ketones (Stick) Negative mg/dL (NEG) Urine Blood Negative (NEG) Urine Nitrite Positive (NEG) Urine Bilirubin Negative (NEG) Urine Urobilinogen Dipstick 0.2 mg/dL (0.2 mg/dL) Urine Leukocyte Esterase Negative (NEG) Urine RBC Rare /HPF (0-2) Urine WBC Rare /HPF (0-4) Urine Squamous Epithelial Cells Occ /LPF Urine Amorphous Sediment Present /HPF Urine Bacteria Many /HPF (0-FEW) Test 06/26/18 14:05 06/26/18 15:00 06/26/18 16:18 06/26/18 17:57 Lactic Acid Level 3.2 mmol/L (0.4-2.0) Nasal Screen MRSA (PCR) Negative (Negative) [id number]-Bsa-[id number]-Type Natriuretic Peptide 432 pg/mL (0-449) Thyroid Stimulating Hormone (TSH) 2.555 uIU/mL (0.358-3.74) Glucose (Fingerstick) 176 mg/dL (70-99) Test 06/27/18 05:00 06/27/18 09:45 Sodium Level 140 mmol/L (136-145) Potassium Level 3.7 mmol/L (3.5-5.1) Chloride Level 104 mmol/L (98-107) Carbon Dioxide Level 29 mmol/L (21-32) Anion Gap 7 (6-14) Blood Urea Nitrogen 29 mg/dL (7-20) Creatinine 1.3 mg/dL (0.6-1.0) Estimated GFR (Cockcroft-Gault) 38.7 Glucose Level 172 mg/dL (70-99) Calcium Level 8.6 mg/dL (8.5-10.1) Magnesium Level 1.9 mg/dL (1.8-2.4) White Blood Count 6.6 x10^3/uL (4.0-11.0) Red Blood Count 3.23 x10^6/uL (3.50-5.40) Hemoglobin 10.2 g/dL (12.0-15.5) Hematocrit 30.4 % (36.0-47.0) Mean Corpuscular Volume 94 fL (79-100) Mean Corpuscular Hemoglobin 32 pg (25-35) Mean Corpuscular Hemoglobin Concent 34 g/dL (31-37) Red Cell Distribution Width 14.7 % (11.5-14.5) Platelet Count 166 x10^3/uL (140-400) Neutrophils (%) (Auto) 81 % (31-73) Lymphocytes (%) (Auto) 9 % (24-48) Monocytes (%) (Auto) 7 % (0-9) Eosinophils (%) (Auto) 2 % (0-3) Basophils (%) (Auto) 1 % (0-3) Neutrophils # (Auto) 5.4 x10^3uL (1.8-7.7) Lymphocytes # (Auto) 0.6 x10^3/uL (1.0-4.8) Monocytes # (Auto) 0.5 x10^3/uL (0.0-1.1) Eosinophils # (Auto) 0.1 x10^3/uL (0.0-0.7) Basophils # (Auto) 0.0 x10^3/uL (0.0-0.2) Lactic Acid Level 0.4 mmol/L (0.4-2.0) Procalcitonin 6.29 ng/mL (0.00-0.10) Laboratory Tests Test 06/26/18 13:55 06/26/18 14:05 06/26/18 15:00 06/26/18 16:18 Glucose (Fingerstick) 250 mg/dL (70-99) Lactic Acid Level 3.2 mmol/L (0.4-2.0) Nasal Screen MRSA (PCR) Negative (Negative) [id number]-Gzr-[id number]-Type Natriuretic Peptide 432 pg/mL (0-449) Thyroid Stimulating Hormone (TSH) 2.555 uIU/mL (0.358-3.74) Test 06/26/18 17:57 06/27/18 05:00 06/27/18 09:45 Glucose (Fingerstick) 176 mg/dL (70-99) Sodium Level 140 mmol/L (136-145) Potassium Level 3.7 mmol/L (3.5-5.1) Chloride Level 104 mmol/L (98-107) Carbon Dioxide Level 29 mmol/L (21-32) Anion Gap 7 (6-14) Blood Urea Nitrogen 29 mg/dL (7-20) Creatinine 1.3 mg/dL (0.6-1.0) Estimated GFR (Cockcroft-Gault) 38.7 Glucose Level 172 mg/dL (70-99) Calcium Level 8.6 mg/dL (8.5-10.1) Magnesium Level 1.9 mg/dL (1.8-2.4) White Blood Count 6.6 x10^3/uL (4.0-11.0) Red Blood Count 3.23 x10^6/uL (3.50-5.40) Hemoglobin 10.2 g/dL (12.0-15.5) Hematocrit 30.4 % (36.0-47.0) Mean Corpuscular Volume 94 fL (79-100) Mean Corpuscular Hemoglobin 32 pg (25-35) Mean Corpuscular Hemoglobin Concent 34 g/dL (31-37) Red Cell Distribution Width 14.7 % (11.5-14.5) Platelet Count 166 x10^3/uL (140-400) Neutrophils (%) (Auto) 81 % (31-73) Lymphocytes (%) (Auto) 9 % (24-48) Monocytes (%) (Auto) 7 % (0-9) Eosinophils (%) (Auto) 2 % (0-3) Basophils (%) (Auto) 1 % (0-3) Neutrophils # (Auto) 5.4 x10^3uL (1.8-7.7) Lymphocytes # (Auto) 0.6 x10^3/uL (1.0-4.8) Monocytes # (Auto) 0.5 x10^3/uL (0.0-1.1) Eosinophils # (Auto) 0.1 x10^3/uL (0.0-0.7) Basophils # (Auto) 0.0 x10^3/uL (0.0-0.2) Lactic Acid Level 0.4 mmol/L (0.4-2.0) Procalcitonin 6.29 ng/mL (0.00-0.10) Medications Current Medications Sodium Chloride 1,000 ml @ 1,000 mls/hr 1X ONCE IV Last administered on 06/26at 09:55; Start 06/26/18 at 09:15; Stop 06/26/18 at 10:14; Status DC Insulin Human Regular (HumuLIN R VIAL) 6 unit 1X ONCE IV Last administered on 06/26/18at 09:54; Start 06/26/18 at 09:30; Stop 06/26/18 at 09:31; Status DC Ceftriaxone Sodium 50 ml @ 100 mls/hr 1X ONCE IV Last administered on at 09:56; Start 06/26/18 at 09:30; Stop 06/26/18 at 09:59; Status DC Ceftriaxone Sodium 1 gm/ Dextrose 50 ml @ 100 mls/hr Q24H IV ; Start 06/26/18 at 11:45; Status UNV Sodium Chloride 1,000 ml @ 1,000 mls/hr 1X ONCE IV Last administered on 06/26at 11:00; Start 06/26/18 at 12:00; Stop 06/26/18 at 12:59; Status DC Lactobacillus Rhamnosus (Culturelle) 1 cap BID PO Last administered on at 09:37; Start 06/26/18 at 21:00 Ceftriaxone Sodium (Rocephin) 1 gm Q24H IVP Last administered on 06/27/18at 10: 54; Start 06/27/18 at 10:00 Sodium Chloride 1,000 ml @ 50 mls/hr Q20H IV Last administered on 06/27/18at 07:58; Start 06/26/18 at 14:45 Acetaminophen (Tylenol) 650 mg PRN Q6HRS PRN PO MILD PAIN Last administered on 06/27/18at 05:35; Start 06/26/18 at 15:15 Influenza Virus Vaccine (Afluria Trivalent 7521-1048 Syringe) 0.5 ml ONCE ONCE VAX IM Last administered on 06/27/18at 09:40; Start 06/27/18 at 09:00; Stop 06/27/18 at 09:01; Status DC Morphine Sulfate (Morphine Sulfate) 2 mg PRN Q4HRS PRN IV SEVERE PAIN Last administered on 06/26/18at 21:42; Start 06/26/18 at 21:45 Lactobacillus Rhamnosus (Culturelle) 1 cap BID PO ; Start 06/27/18 at 12:00; Status Cancel Active Scripts Active Reported Potassium Chloride 20 Meq Tablet.er 40 Meq PO DAILY Amlodipine Besylate 10 Mg Tablet 10 Mg PO DAILY Multi-Day Vitamins (Multivitamin) 1 Each Tablet 1 Each PO DAILY Namenda (Memantine Hcl) 10 Mg Tablet 5 Mg PO BID Synthroid (Levothyroxine Sodium) 100 Mcg Tablet 100 Mcg PO DAILY Lasix (Furosemide) 40 Mg Tablet 40 Mg PO DAILY Ferrous Sulfate 325 Mg Tablet.dr 325 Mg PO DAILY Vasotec (Enalapril Maleate) 20 Mg Tablet 20 Mg PO BID Cymbalta (Duloxetine Hcl) 30 Mg Capsule.dr 30 Mg PO HS Aricept (Donepezil Hcl) 10 Mg Tablet 10 Mg PO HS Vitamin B-12 (Cyanocobalamin (Vitamin B-12)) 1,000 Mcg Tablet 1,000 Mcg PO DAILY Vitamin D3 (Cholecalciferol (Vitamin D3)) 1,000 Unit Tablet 1,000 Unit PO BID Carvedilol 25 Mg Tablet 25 Mg PO BIDWMEALS Aspir 81 (Aspirin) 81 Mg Tablet.dr 81 Mg PO HS Ascorbic Acid 500 Mg Tablet 500 Mg PO DAILY Allopurinol 300 Mg Tablet 300 Mg PO DAILY Vitals/I & O Vital Sign - Last 24 Hours 06/26/18 06/26/18 06/26/18 06/26/18 12:47 14:00 14:15 15:00 Temp 97.5 97.9 97.5 97.9 Pulse 88 88 80 91 Resp 16 16 16 18 B/P (MAP) 112/58 (76) 73/36 (48) 98/62 (74) 111/62 (78) Pulse Ox 91 95 95 92 O2 Delivery Nasal Cannula Nasal Cannula Nasal Cannula Nasal Cannula O2 Flow Rate 3.0 3.0 3.0 3.0 06/26/18 06/26/18 06/26/18 06/26/18 16:00 16:00 17:00 18:00 Temp 97.7 98.4 97.7 98.4 Pulse 89 90 94 Resp 17 18 16 B/P (MAP) 107/55 (72) 113/62 (79) 115/63 (80) Pulse Ox 93 87 96 O2 Delivery Nasal Cannula Nasal Cannula Nasal Cannula Nasal Cannula O2 Flow Rate 3.0 3.0 3.0 3.0 06/26/18 06/26/18 06/26/18 06/26/18 19:00 20:00 20:00 21:00 Temp 98.8 98.8 Pulse 88 92 92 Resp 18 16 18 B/P (MAP) 112/54 (73) 109/59 (76) 125/65 (85) Pulse Ox 95 96 92 O2 Delivery Nasal Cannula Nasal Cannula Nasal Cannula Nasal Cannula O2 Flow Rate 3.0 3.0 3.0 3.0 06/26/18 06/26/18 06/26/18 06/26/18 21:42 22:00 22:12 23:00 Pulse 92 100 Resp 18 18 B/P (MAP) 112/64 (80) 132/64 (86) Pulse Ox 96 93 93 93 O2 Delivery Nasal Cannula Nasal Cannula Nasal Cannula Nasal Cannula O2 Flow Rate 3.0 3.0 3.0 3.0 06/27/18 06/27/18 06/27/18 06/27/18 00:00 01:00 02:00 03:00 Pulse 100 104 102 Resp 18 18 18 B/P (MAP) 119/65 (83) 139/52 (81) Pulse Ox 93 93 93 O2 Delivery Nasal Cannula Nasal Cannula Nasal Cannula Nasal Cannula O2 Flow Rate 3.0 3.0 3.0 3.0 06/27/18 06/27/18 06/27/18 06/27/18 04:00 04:00 05:00 06:00 Temp 98.6 98.6 Pulse 106 106 104 Resp 16 18 18 B/P (MAP) 130/72 (91) 138/60 (86) 145/67 (93) Pulse Ox 93 93 93 O2 Delivery Nasal Cannula Nasal Cannula Nasal Cannula Nasal Cannula O2 Flow Rate 3.0 3.0 3.0 3.0 06/27/18 06/27/18 06/27/18 06/27/18 07:00 08:00 09:00 10:06 Temp 98.7 98.7 98.7 98.7 Pulse 103 104 107 Resp 18 16 B/P (MAP) 138/69 (92) 140/66 (90) 143/71 (95) Pulse Ox 97 97 97 O2 Delivery Nasal Cannula Nasal Cannula Nasal Cannula Nasal Cannula O2 Flow Rate 3.0 3.0 3.0 3.0 06/27/18 11:00 Temp 99.0 99.0 Pulse 99 Resp 18 B/P (MAP) 136/71 (92) Pulse Ox 97 O2 Delivery Nasal Cannula O2 Flow Rate 3.0 Intake and Output 06/26/18 06/26/18 06/27/18 15:00 23:00 07:00 Intake Total 2050 ml 837 ml Output Total 90 ml 370 ml 445 ml Balance 1960 ml -370 ml 392 ml ROSEMARIE LUCIO MD Jun 27, 2018 12:46
--- NOTE | 2018-06-27 13:25 | PDOC2 ---
CONSULT Date of Consult Date of Consult DATE: 06/27/18 TIME: 13:04 Reason for Consult Reason for Consult: pain right hallux/bruising, symptomatic nails Referring Physician Referring Physician: Ayden Identification/Chief Complaint Chief Complaint Patient with symptomatic nails, superficial scrapes on feet, bruising and pain to right hallux. Source Source: Caregiver, Chart review, Patient History of Present Illness Reason for Visit: 87 year old female lives alone with past medical history significant for dementia went outside alone and assumed to have scraped her feet and knees with a fall outside. She also complains of pain to right hallux and notes bruising. She also complains of long thickened incurvated toenails which cause pain in shoegear and ambulation. She had appointment Friday but was unable to come due to not feeling well from a UTI Past Medical History Cardiovascular: CHF, HTN CENTRAL NERVOUS SYSTEM: Dementia GI: No pertinent hx Heme/Onc: Cancer Hepatobiliary: No pertinent hx Psych: No pertinent hx Musculoskeletal: Osteoarthritis Rheumatologic: Gout Renal/: Chronic renal insuff Endocrine: Diabetes Past Surgical History Past Surgical History: Hernia Repair, Total knee replacement, Other Family History Family History: Heart Disease, Hypertension Social History No ALCOHOL: none Drugs: None Lives: Alone Current Problem List Problem List Problems Medical Problems: (1) Hypothermia Status: Acute (2) Urinary tract infection Status: Acute Current Medications Current Medications Current Medications Sodium Chloride 1,000 ml @ 1,000 mls/hr 1X ONCE IV Last administered on 06/26at 09:55; Start 06/26/18 at 09:15; Stop 06/26/18 at 10:14; Status DC Insulin Human Regular (HumuLIN R VIAL) 6 unit 1X ONCE IV Last administered on 06/26/18at 09:54; Start 06/26/18 at 09:30; Stop 06/26/18 at 09:31; Status DC Ceftriaxone Sodium 50 ml @ 100 mls/hr 1X ONCE IV Last administered on at 09:56; Start 06/26/18 at 09:30; Stop 06/26/18 at 09:59; Status DC Ceftriaxone Sodium 1 gm/ Dextrose 50 ml @ 100 mls/hr Q24H IV ; Start 06/26/18 at 11:45; Status UNV Sodium Chloride 1,000 ml @ 1,000 mls/hr 1X ONCE IV Last administered on 06/26at 11:00; Start 06/26/18 at 12:00; Stop 06/26/18 at 12:59; Status DC Lactobacillus Rhamnosus (Culturelle) 1 cap BID PO Last administered on at 09:37; Start 06/26/18 at 21:00 Ceftriaxone Sodium (Rocephin) 1 gm Q24H IVP Last administered on 06/27/18at 10: 54; Start 06/27/18 at 10:00 Sodium Chloride 1,000 ml @ 50 mls/hr Q20H IV Last administered on 06/27/18at 07:58; Start 06/26/18 at 14:45 Acetaminophen (Tylenol) 650 mg PRN Q6HRS PRN PO MILD PAIN Last administered on 06/27/18at 05:35; Start 06/26/18 at 15:15 Influenza Virus Vaccine (Afluria Trivalent [id number] Syringe) 0.5 ml ONCE ONCE VAX IM Last administered on 06/27/18at 09:40; Start 06/27/18 at 09:00; Stop 06/27/18 at 09:01; Status DC Morphine Sulfate (Morphine Sulfate) 2 mg PRN Q4HRS PRN IV SEVERE PAIN Last administered on 06/26/18at 21:42; Start 06/26/18 at 21:45 Lactobacillus Rhamnosus (Culturelle) 1 cap BID PO ; Start 06/27/18 at 12:00; Status Cancel Acetaminophen (Tylenol) 650 mg 1X ONCE PO ; Start 06/27/18 at 12:45; Stop at 12:46; Status DC Allopurinol (Zyloprim) 300 mg DAILY PO ; Start 06/27/18 at 13:00 Amlodipine Besylate (Norvasc) 10 mg DAILY PO ; Start 06/27/18 at 13:00 Ascorbic Acid (Vitamin C) 500 mg DAILY PO ; Start 06/27/18 at 13:00 Aspirin (Ecotrin) 81 mg HS PO ; Start 06/27/18 at 21:00 Vitamin D (Vitamin D3) 1,000 unit BID PO ; Start 06/27/18 at 13:00 Cyanocobalamin (Vitamin B-12) 1,000 mcg DAILY PO ; Start 06/27/18 at 13:00 Duloxetine HCl (Cymbalta) 30 mg HS PO ; Start 06/27/18 at 21:00 Furosemide (Lasix) 40 mg DAILY PO ; Start 06/27/18 at 13:00 Levothyroxine Sodium (Synthroid) 100 mcg DAILY07 PO ; Start 06/27/18 at 13:00 Carvedilol (Coreg) 25 mg BIDWMEALS PO ; Start 06/27/18 at 17:00 Donepezil HCl (Aricept) 10 mg QHS PO ; Start 06/27/18 at 21:00 Lisinopril (Prinivil) 40 mg BID PO ; Start 06/27/18 at 13:00 Ferrous Sulfate (Feosol) 325 mg DAILYWBKFT PO ; Start 06/28/18 at 13:00 Memantine (Namenda) 5 mg BID PO ; Start 06/27/18 at 13:00 Multivitamins (Thera M Plus) 1 tab DAILY PO ; Start 06/27/18 at 13:00 Potassium Chloride (Klor-Con) 40 meq DAILYWBKFT PO ; Start 06/27/18 at 13:00 Active Scripts Active Reported Potassium Chloride 20 Meq Tablet.er 40 Meq PO DAILY Amlodipine Besylate 10 Mg Tablet 10 Mg PO DAILY Multi-Day Vitamins (Multivitamin) 1 Each Tablet 1 Each PO DAILY Namenda (Memantine Hcl) 10 Mg Tablet 5 Mg PO BID Synthroid (Levothyroxine Sodium) 100 Mcg Tablet 100 Mcg PO DAILY Lasix (Furosemide) 40 Mg Tablet 40 Mg PO DAILY Ferrous Sulfate 325 Mg Tablet.dr 325 Mg PO DAILY Vasotec (Enalapril Maleate) 20 Mg Tablet 20 Mg PO BID Cymbalta (Duloxetine Hcl) 30 Mg Capsule.dr 30 Mg PO HS Aricept (Donepezil Hcl) 10 Mg Tablet 10 Mg PO HS Vitamin B-12 (Cyanocobalamin (Vitamin B-12)) 1,000 Mcg Tablet 1,000 Mcg PO DAILY Vitamin D3 (Cholecalciferol (Vitamin D3)) 1,000 Unit Tablet 1,000 Unit PO BID Carvedilol 25 Mg Tablet 25 Mg PO BIDWMEALS Aspir 81 (Aspirin) 81 Mg Tablet.dr 81 Mg PO HS Ascorbic Acid 500 Mg Tablet 500 Mg PO DAILY Allopurinol 300 Mg Tablet 300 Mg PO DAILY Allergies Allergies: Coded Allergies: No Known Drug Allergies (Unverified , 11/14/16) ROS General: YES: Fatigue; No: Chills, Night Sweats, Malaise, Appetite, Other PSYCHOLOGICAL ROS: No: Anxiety, Behavioral Disorder, Concentration difficultie , Decreased libido, Depression, Disorientation, Hallucinations, Hostility, Irritablity, Memory difficulties, Mood Swings, Obsessive thoughts, Physical abuse, Sexual abuse, Sleep disturbances, Suicidal ideation, Other Eyes: No Blurry vision, No Decreased vision, No Double vision, No Dry eyes, No Excessive tearing, No Eye Pain, No Itchy Eyes, No Loss of vision, No Photophobia , No Scotomata, No Uses contacts, No Uses glasses, No Other HEENT: No: Heacaches, Visual Changes, Hearing change, Nasal congestion, Nasal discharge, Oral lesions, Sinus pain, Sore Throat, Epistaxis, Sneezing, Snoring, Tinnitus, Vertigo, Vocal changes, Other ALLERGY AND IMMUNOLOGY: No: Hives, Insect Bite Sensitivity, Itchy/Watery Eyes, Nasal Congestion, Post Nasal Drip, Seasonal Allergies, Other Hematological and Lymphatic: YES: Brusing; No: Bleeding Problems, Blood Clots, Blood Transfusions, Night Sweats, Pallor , Swollen Lymph Nodes, Other ENDOCRINE: No: Breast Changes, Galactorrhea, Hair Pattern Changes, Hot Flashes , Malaise/lethargy, Mood Swings, Palpitations, Polydipsia/polyuria, Skin Changes , Temperature Intolerance, Unexpected Weight Changes, Other Respiratory: No: Cough, Hemoptysis, Orthopnea, Pleuritic Pain, Shortness of breath, SOB with excertion, Sputum Changes, Stridor, Tachypnea, Wheezing, Other Cardiovascular: No Chest Pain, No Palpitations, No Orthopnea, No Paroxysmal Noc. Dyspnea, No Edema, No Lt Headedness, No Other Gastrointestinal: No Nausea, No Vomiting, No Abdominal Pain, No Diarrhea, No Constipation, No Melena, No Hematochezia, No Other Genitourinary: No Dysuria, No Frequency, No Incontinence, No Hematuria, No Retention, No Discharge, No Urgency, No Pain, No Flank Pain, No Other, No , No , No , No , No , No , No Musculoskeletal: Yes Gait Disturbance, Yes Joint Pain, Yes Joint Swelling, Yes Muscular Weakness Neurological: Yes Confusion, Yes Memory Loss, Yes Weakness Skin: Yes Dry Skin, Yes Hair Changes, Yes Nail Changes; No Eczema, No Lumps, No Mole Changes, No Mottling, No Pruritus, No Rash, No Skin Lesion Changes, No Other, No Acne Physical Exam Physical Exam Lower extremity: note ecchymosis to base of right hallux medially with positive pain on palpation and pain with 1st MPJ range of motion right foot. Note superficial abrasions to dorsal 2nd digit bilateral and dorsal right hallux and 1st metatarsal. no cellulitis. no pustular drainage. No ischemic changes. No other skin sloughing noted. No hair is present to feet. nails are long thickened 4mm and yellow brown discolored with incurvation noted x 10. no calor. skin is cool, xerotic atrophic. decreased turgor. DP and PT 0/4. CFT 3 seconds. +2 pitting edema to bilateral lower extremity. Sensation is diminished to light touch and sharp dull. Positive pain on palpation to base of 2nd digit right foot. no crepitus. dorsally contracted digits 2-5 bilateral. Gait not evaluated. General: Alert, No acute distress Vitals VITALS Vital Signs Date Time Temp Pulse Resp B/P (MAP) Pulse Ox O2 Delivery O2 Flow Rate FiO2 06/27/18 11:00 99.0 99 18 136/71 (92) 97 Nasal Cannula 3.0 99.0 Labs Labs Laboratory Tests Test 06/26/18 08:22 06/26/18 08:38 06/26/18 08:52 06/26/18 13:55 Glucose (Fingerstick) 428 mg/dL (70-99) 250 mg/dL (70-99) White Blood Count 13.3 x10^3/uL (4.0-11.0) Red Blood Count 3.85 x10^6/uL (3.50-5.40) Hemoglobin 11.7 g/dL (12.0-15.5) Hematocrit 36.5 % (36.0-47.0) Mean Corpuscular Volume 95 fL (79-100) Mean Corpuscular Hemoglobin 31 pg (25-35) Mean Corpuscular Hemoglobin Concent 32 g/dL (31-37) Red Cell Distribution Width 14.5 % (11.5-14.5) Platelet Count 238 x10^3/uL (140-400) Neutrophils (%) (Auto) 89 % (31-73) Lymphocytes (%) (Auto) 8 % (24-48) Monocytes (%) (Auto) 3 % (0-9) Eosinophils (%) (Auto) 0 % (0-3) Basophils (%) (Auto) 0 % (0-3) Neutrophils # (Auto) 11.8 x10^3uL (1.8-7.7) Lymphocytes # (Auto) 1.1 x10^3/uL (1.0-4.8) Monocytes # (Auto) 0.3 x10^3/uL (0.0-1.1) Eosinophils # (Auto) 0.1 x10^3/uL (0.0-0.7) Basophils # (Auto) 0.0 x10^3/uL (0.0-0.2) Segmented Neutrophils % 78 % (35-66) Band Neutrophils % 1 % (0-9) Lymphocytes % 12 % (24-48) Monocytes % 6 % (0-10) Eosinophils % 1 % (0-5) Basophils % 2 % (0-3) Platelet Estimate Adequate (ADEQUATE) Prothrombin Time 13.8 SEC (11.7-14.0) Prothromb Time International Ratio 1.1 (0.8-1.1) Sodium Level 139 mmol/L (136-145) Potassium Level 5.0 mmol/L (3.5-5.1) Chloride Level 99 mmol/L (98-107) Carbon Dioxide Level 30 mmol/L (21-32) Anion Gap 10 (6-14) Blood Urea Nitrogen 38 mg/dL (7-20) Creatinine 1.7 mg/dL (0.6-1.0) Estimated GFR (Cockcroft-Gault) 28.4 BUN/Creatinine Ratio 22 (6-20) Glucose Level 425 mg/dL (70-99) Lactic Acid Level 2.8 mmol/L (0.4-2.0) Calcium Level 9.1 mg/dL (8.5-10.1) Magnesium Level 1.9 mg/dL (1.8-2.4) Total Bilirubin 0.7 mg/dL (0.2-1.0) Aspartate Amino Transf (AST/SGOT) 16 U/L (15-37) Alanine Aminotransferase (ALT/SGPT) 21 U/L (14-59) Alkaline Phosphatase 212 U/L (46-116) Ammonia 11 mcmol/L (11-34) Creatine Kinase 193 U/L (26-192) Creatine Kinase MB (Mass) 3.1 ng/mL (0.0-3.6) Creatine Kinase MB Relative Index 1.6 % (0-4) Troponin I Quantitative < 0.017 ng/mL (0.000-0.055) Total Protein 6.7 g/dL (6.4-8.2) Albumin 3.6 g/dL (3.4-5.0) Albumin/Globulin Ratio 1.2 (1.0-1.7) Urine Collection Type U cath Urine Color Yellow Urine Clarity Clear Urine pH 6.0 Urine Specific Jackson 1.015 Urine Protein Negative mg/dL (NEG-TRACE) Urine Glucose (UA) 100 mg/dL (NEG) Urine Ketones (Stick) Negative mg/dL (NEG) Urine Blood Negative (NEG) Urine Nitrite Positive (NEG) Urine Bilirubin Negative (NEG) Urine Urobilinogen Dipstick 0.2 mg/dL (0.2 mg/dL) Urine Leukocyte Esterase Negative (NEG) Urine RBC Rare /HPF (0-2) Urine WBC Rare /HPF (0-4) Urine Squamous Epithelial Cells Occ /LPF Urine Amorphous Sediment Present /HPF Urine Bacteria Many /HPF (0-FEW) Test 06/26/18 14:05 06/26/18 15:00 06/26/18 16:18 06/26/18 17:57 Lactic Acid Level 3.2 mmol/L (0.4-2.0) Nasal Screen MRSA (PCR) Negative (Negative) [id number] Natriuretic Peptide 432 pg/mL (0-449) Thyroid Stimulating Hormone (TSH) 2.555 uIU/mL (0.358-3.74) Glucose (Fingerstick) 176 mg/dL (70-99) Test 06/27/18 05:00 06/27/18 09:45 Sodium Level 140 mmol/L (136-145) Potassium Level 3.7 mmol/L (3.5-5.1) Chloride Level 104 mmol/L (98-107) Carbon Dioxide Level 29 mmol/L (21-32) Anion Gap 7 (6-14) Blood Urea Nitrogen 29 mg/dL (7-20) Creatinine 1.3 mg/dL (0.6-1.0) Estimated GFR (Cockcroft-Gault) 38.7 Glucose Level 172 mg/dL (70-99) Calcium Level 8.6 mg/dL (8.5-10.1) Magnesium Level 1.9 mg/dL (1.8-2.4) White Blood Count 6.6 x10^3/uL (4.0-11.0) Red Blood Count 3.23 x10^6/uL (3.50-5.40) Hemoglobin 10.2 g/dL (12.0-15.5) Hematocrit 30.4 % (36.0-47.0) Mean Corpuscular Volume 94 fL (79-100) Mean Corpuscular Hemoglobin 32 pg (25-35) Mean Corpuscular Hemoglobin Concent 34 g/dL (31-37) Red Cell Distribution Width 14.7 % (11.5-14.5) Platelet Count 166 x10^3/uL (140-400) Neutrophils (%) (Auto) 81 % (31-73) Lymphocytes (%) (Auto) 9 % (24-48) Monocytes (%) (Auto) 7 % (0-9) Eosinophils (%) (Auto) 2 % (0-3) Basophils (%) (Auto) 1 % (0-3) Neutrophils # (Auto) 5.4 x10^3uL (1.8-7.7) Lymphocytes # (Auto) 0.6 x10^3/uL (1.0-4.8) Monocytes # (Auto) 0.5 x10^3/uL (0.0-1.1) Eosinophils # (Auto) 0.1 x10^3/uL (0.0-0.7) Basophils # (Auto) 0.0 x10^3/uL (0.0-0.2) Lactic Acid Level 0.4 mmol/L (0.4-2.0) Procalcitonin 6.29 ng/mL (0.00-0.10) Laboratory Tests Test 06/26/18 13:55 06/26/18 14:05 06/26/18 15:00 06/26/18 16:18 Glucose (Fingerstick) 250 mg/dL (70-99) Lactic Acid Level 3.2 mmol/L (0.4-2.0) Nasal Screen MRSA (PCR) Negative (Negative) [id number] Natriuretic Peptide 432 pg/mL (0-449) Thyroid Stimulating Hormone (TSH) 2.555 uIU/mL (0.358-3.74) Test 06/26/18 17:57 06/27/18 05:00 06/27/18 09:45 Glucose (Fingerstick) 176 mg/dL (70-99) Sodium Level 140 mmol/L (136-145) Potassium Level 3.7 mmol/L (3.5-5.1) Chloride Level 104 mmol/L (98-107) Carbon Dioxide Level 29 mmol/L (21-32) Anion Gap 7 (6-14) Blood Urea Nitrogen 29 mg/dL (7-20) Creatinine 1.3 mg/dL (0.6-1.0) Estimated GFR (Cockcroft-Gault) 38.7 Glucose Level 172 mg/dL (70-99) Calcium Level 8.6 mg/dL (8.5-10.1) Magnesium Level 1.9 mg/dL (1.8-2.4) White Blood Count 6.6 x10^3/uL (4.0-11.0) Red Blood Count 3.23 x10^6/uL (3.50-5.40) Hemoglobin 10.2 g/dL (12.0-15.5) Hematocrit 30.4 % (36.0-47.0) Mean Corpuscular Volume 94 fL (79-100) Mean Corpuscular Hemoglobin 32 pg (25-35) Mean Corpuscular Hemoglobin Concent 34 g/dL (31-37) Red Cell Distribution Width 14.7 % (11.5-14.5) Platelet Count 166 x10^3/uL (140-400) Neutrophils (%) (Auto) 81 % (31-73) Lymphocytes (%) (Auto) 9 % (24-48) Monocytes (%) (Auto) 7 % (0-9) Eosinophils (%) (Auto) 2 % (0-3) Basophils (%) (Auto) 1 % (0-3) Neutrophils # (Auto) 5.4 x10^3uL (1.8-7.7) Lymphocytes # (Auto) 0.6 x10^3/uL (1.0-4.8) Monocytes # (Auto) 0.5 x10^3/uL (0.0-1.1) Eosinophils # (Auto) 0.1 x10^3/uL (0.0-0.7) Basophils # (Auto) 0.0 x10^3/uL (0.0-0.2) Lactic Acid Level 0.4 mmol/L (0.4-2.0) Procalcitonin 6.29 ng/mL (0.00-0.10) Images Images Xray 3 views weightbearing bilateral foot 06/27/18: Note diffuse osteopenia and calcified vessels. Note displaced avulsion fracture medial base of 2nd digit proximal phalanx, right. Joint space narrowing of 1st MPJ right. No other fracture or dislocation noted Assessment/Plan Assessment/Plan 87 year old female with diffuse peripheral vascular disease, displaced fracture proximal phalanx 2nd toe right foot, contusion right hallux, onychomycosis, onychauxis, onychocryptosis -Discussed with hospitalist. Xrays ordered and reviewed bedside-note displaced avulsion fracture base of 2nd digit medial aspect right foot. Recommend surgical shoe and weightbearing as tolerated. Repeat radiographs in 3-4 weeks -No signs of ischemic changes or murillo bite. -Superficial abrasions bilateral 2nd digits and hallux Begin daily local wound care with light betadine gauze kerlex bandage roll until resolved. monitor for cellulitis, drainage, worsening. -Contusion to hallux but no signs of fracture on radiograph to right hallux. -Patient also with clinical onychomycosis, onychauxis, onychocryptosis-Nails debrided x 10. Discussed proper foot hygiene. Recommend repeat debridement in 10-12 weeks in clinic -Discussed with her daughters and granddaughter -Follow up as outpatient in 3 weeks for repeat radiographs and follow up wound care. -Will sign off-reconsult as needed. ELIZABETH ONEAL DPM Jun 27, 2018 13:25
[2018-06-27] MEDS: FUROSEMIDE 40 MG TABLET. PO SCH (13:56)
[2018-06-27] MEDS: LISINOPRIL 20 MG TABLET PO SCH ×2 (13:56→23:08)
[2018-06-27] MEDS: CYANOCOBALAMIN (VITAMIN B-12) 1,000 MCG TABLET. PO SCH (13:56)
[2018-06-27] MEDS: MULTIVITAMIN with MINERAL TABLET. PO SCH (13:56)
[2018-06-27] MEDS: amLODIPine BESYLATE 10 MG TABLET PO SCH (13:57)
[2018-06-27] MEDS: ASCORBIC ACID 500 MG TABLET PO SCH (13:57)
[2018-06-27] MEDS: LEVOTHYROXINE 100 MCG TABLET PO SCH (13:57)
[2018-06-27] MEDS: CHOLECALCIFEROL (VITAMIN D3) 1,000 UNIT TABLET PO SCH ×2 (13:58→20:57)
[2018-06-27] MEDS: POTASSIUM CHLORIDE 20 MEQ TABLET.ER. PO SCH (13:58)
[2018-06-27] MEDS: ALLOPURINOL 300 MG TABLET. PO SCH (13:58)
[2018-06-27] MEDS: MEMANTINE 10 MG TABLET. PO SCH ×2 (13:58→20:58)
--- NOTE | 2018-06-27 14:04 | PDOC ---
PROGRESS NOTES Subjective Subjective Patient seen and examined The patient is more alert today. Objective Objective Vital Signs Date Time Temp Pulse Resp B/P (MAP) Pulse Ox O2 Delivery O2 Flow Rate FiO2 06/27/18 13:57 99 136/71 06/27/18 11:00 99.0 18 97 Nasal Cannula 3.0 99.0 Intake and Output 06/27/18 07:00 Intake Total 2887 ml Output Total 905 ml Balance 1982 ml Intake Oral 0 ml IV Total 2887 ml Output Urine Total 905 ml # Bowel Movements 1 Physical Exam Abdomen: Normal bowel sounds Heart: Regular rate General: mild distress Lungs: Other (mildly decreased breath sounds) Assessment Assessment Problems Medical Problems: (1) Hypothermia Status: Acute (2) Urinary tract infection Status: Acute Possible epsis with a UTI. Antibiotic treatment as above. IV hydration. Close monitoring. Hypothermia. Outdoor exposure as above. Improving. Metabolic encephalopathy with probable underlying dementia. The patient continues to be more responsive. Compensated diastolic heart failure. Ejection fraction of 55%. JANNETTE with underlying chronic kidney disease. Fluid replacement as above. Monitoring lab. Diabetes mellitus with poor control. As per the primary service. Hypothyroidism. Comment Review of Relevant I have reviewed the following items alexei (where applicable) has been applied. Labs Laboratory Tests Test 06/26/18 08:22 06/26/18 08:38 06/26/18 08:52 06/26/18 13:55 Glucose (Fingerstick) 428 mg/dL (70-99) 250 mg/dL (70-99) White Blood Count 13.3 x10^3/uL (4.0-11.0) Red Blood Count 3.85 x10^6/uL (3.50-5.40) Hemoglobin 11.7 g/dL (12.0-15.5) Hematocrit 36.5 % (36.0-47.0) Mean Corpuscular Volume 95 fL (79-100) Mean Corpuscular Hemoglobin 31 pg (25-35) Mean Corpuscular Hemoglobin Concent 32 g/dL (31-37) Red Cell Distribution Width 14.5 % (11.5-14.5) Platelet Count 238 x10^3/uL (140-400) Neutrophils (%) (Auto) 89 % (31-73) Lymphocytes (%) (Auto) 8 % (24-48) Monocytes (%) (Auto) 3 % (0-9) Eosinophils (%) (Auto) 0 % (0-3) Basophils (%) (Auto) 0 % (0-3) Neutrophils # (Auto) 11.8 x10^3uL (1.8-7.7) Lymphocytes # (Auto) 1.1 x10^3/uL (1.0-4.8) Monocytes # (Auto) 0.3 x10^3/uL (0.0-1.1) Eosinophils # (Auto) 0.1 x10^3/uL (0.0-0.7) Basophils # (Auto) 0.0 x10^3/uL (0.0-0.2) Segmented Neutrophils % 78 % (35-66) Band Neutrophils % 1 % (0-9) Lymphocytes % 12 % (24-48) Monocytes % 6 % (0-10) Eosinophils % 1 % (0-5) Basophils % 2 % (0-3) Platelet Estimate Adequate (ADEQUATE) Prothrombin Time 13.8 SEC (11.7-14.0) Prothromb Time International Ratio 1.1 (0.8-1.1) Sodium Level 139 mmol/L (136-145) Potassium Level 5.0 mmol/L (3.5-5.1) Chloride Level 99 mmol/L (98-107) Carbon Dioxide Level 30 mmol/L (21-32) Anion Gap 10 (6-14) Blood Urea Nitrogen 38 mg/dL (7-20) Creatinine 1.7 mg/dL (0.6-1.0) Estimated GFR (Cockcroft-Gault) 28.4 BUN/Creatinine Ratio 22 (6-20) Glucose Level 425 mg/dL (70-99) Lactic Acid Level 2.8 mmol/L (0.4-2.0) Calcium Level 9.1 mg/dL (8.5-10.1) Magnesium Level 1.9 mg/dL (1.8-2.4) Total Bilirubin 0.7 mg/dL (0.2-1.0) Aspartate Amino Transf (AST/SGOT) 16 U/L (15-37) Alanine Aminotransferase (ALT/SGPT) 21 U/L (14-59) Alkaline Phosphatase 212 U/L (46-116) Ammonia 11 mcmol/L (11-34) Creatine Kinase 193 U/L (26-192) Creatine Kinase MB (Mass) 3.1 ng/mL (0.0-3.6) Creatine Kinase MB Relative Index 1.6 % (0-4) Troponin I Quantitative < 0.017 ng/mL (0.000-0.055) Total Protein 6.7 g/dL (6.4-8.2) Albumin 3.6 g/dL (3.4-5.0) Albumin/Globulin Ratio 1.2 (1.0-1.7) Urine Collection Type U cath Urine Color Yellow Urine Clarity Clear Urine pH 6.0 Urine Specific [place] 1.015 Urine Protein Negative mg/dL (NEG-TRACE) Urine Glucose (UA) 100 mg/dL (NEG) Urine Ketones (Stick) Negative mg/dL (NEG) Urine Blood Negative (NEG) Urine Nitrite Positive (NEG) Urine Bilirubin Negative (NEG) Urine Urobilinogen Dipstick 0.2 mg/dL (0.2 mg/dL) Urine Leukocyte Esterase Negative (NEG) Urine RBC Rare /HPF (0-2) Urine WBC Rare /HPF (0-4) Urine Squamous Epithelial Cells Occ /LPF Urine Amorphous Sediment Present /HPF Urine Bacteria Many /HPF (0-FEW) Test 06/26/18 14:05 06/26/18 15:00 06/26/18 16:18 06/26/18 17:57 Lactic Acid Level 3.2 mmol/L (0.4-2.0) Nasal Screen MRSA (PCR) Negative (Negative) [id number]-Type Natriuretic Peptide 432 pg/mL (0-449) Thyroid Stimulating Hormone (TSH) 2.555 uIU/mL (0.358-3.74) Glucose (Fingerstick) 176 mg/dL (70-99) Test 06/27/18 05:00 06/27/18 09:45 Sodium Level 140 mmol/L (136-145) Potassium Level 3.7 mmol/L (3.5-5.1) Chloride Level 104 mmol/L (98-107) Carbon Dioxide Level 29 mmol/L (21-32) Anion Gap 7 (6-14) Blood Urea Nitrogen 29 mg/dL (7-20) Creatinine 1.3 mg/dL (0.6-1.0) Estimated GFR (Cockcroft-Gault) 38.7 Glucose Level 172 mg/dL (70-99) Calcium Level 8.6 mg/dL (8.5-10.1) Magnesium Level 1.9 mg/dL (1.8-2.4) White Blood Count 6.6 x10^3/uL (4.0-11.0) Red Blood Count 3.23 x10^6/uL (3.50-5.40) Hemoglobin 10.2 g/dL (12.0-15.5) Hematocrit 30.4 % (36.0-47.0) Mean Corpuscular Volume 94 fL (79-100) Mean Corpuscular Hemoglobin 32 pg (25-35) Mean Corpuscular Hemoglobin Concent 34 g/dL (31-37) Red Cell Distribution Width 14.7 % (11.5-14.5) Platelet Count 166 x10^3/uL (140-400) Neutrophils (%) (Auto) 81 % (31-73) Lymphocytes (%) (Auto) 9 % (24-48) Monocytes (%) (Auto) 7 % (0-9) Eosinophils (%) (Auto) 2 % (0-3) Basophils (%) (Auto) 1 % (0-3) Neutrophils # (Auto) 5.4 x10^3uL (1.8-7.7) Lymphocytes # (Auto) 0.6 x10^3/uL (1.0-4.8) Monocytes # (Auto) 0.5 x10^3/uL (0.0-1.1) Eosinophils # (Auto) 0.1 x10^3/uL (0.0-0.7) Basophils # (Auto) 0.0 x10^3/uL (0.0-0.2) Lactic Acid Level 0.4 mmol/L (0.4-2.0) Procalcitonin 6.29 ng/mL (0.00-0.10) Laboratory Tests Test 06/26/18 14:05 06/26/18 15:00 06/26/18 16:18 06/26/18 17:57 Lactic Acid Level 3.2 mmol/L (0.4-2.0) Nasal Screen MRSA (PCR) Negative (Negative) [id number]-Type Natriuretic Peptide 432 pg/mL (0-449) Thyroid Stimulating Hormone (TSH) 2.555 uIU/mL (0.358-3.74) Glucose (Fingerstick) 176 mg/dL (70-99) Test 06/27/18 05:00 06/27/18 09:45 Sodium Level 140 mmol/L (136-145) Potassium Level 3.7 mmol/L (3.5-5.1) Chloride Level 104 mmol/L (98-107) Carbon Dioxide Level 29 mmol/L (21-32) Anion Gap 7 (6-14) Blood Urea Nitrogen 29 mg/dL (7-20) Creatinine 1.3 mg/dL (0.6-1.0) Estimated GFR (Cockcroft-Gault) 38.7 Glucose Level 172 mg/dL (70-99) Calcium Level 8.6 mg/dL (8.5-10.1) Magnesium Level 1.9 mg/dL (1.8-2.4) White Blood Count 6.6 x10^3/uL (4.0-11.0) Red Blood Count 3.23 x10^6/uL (3.50-5.40) Hemoglobin 10.2 g/dL (12.0-15.5) Hematocrit 30.4 % (36.0-47.0) Mean Corpuscular Volume 94 fL (79-100) Mean Corpuscular Hemoglobin 32 pg (25-35) Mean Corpuscular Hemoglobin Concent 34 g/dL (31-37) Red Cell Distribution Width 14.7 % (11.5-14.5) Platelet Count 166 x10^3/uL (140-400) Neutrophils (%) (Auto) 81 % (31-73) Lymphocytes (%) (Auto) 9 % (24-48) Monocytes (%) (Auto) 7 % (0-9) Eosinophils (%) (Auto) 2 % (0-3) Basophils (%) (Auto) 1 % (0-3) Neutrophils # (Auto) 5.4 x10^3uL (1.8-7.7) Lymphocytes # (Auto) 0.6 x10^3/uL (1.0-4.8) Monocytes # (Auto) 0.5 x10^3/uL (0.0-1.1) Eosinophils # (Auto) 0.1 x10^3/uL (0.0-0.7) Basophils # (Auto) 0.0 x10^3/uL (0.0-0.2) Lactic Acid Level 0.4 mmol/L (0.4-2.0) Procalcitonin 6.29 ng/mL (0.00-0.10) Medications Current Medications Sodium Chloride 1,000 ml @ 1,000 mls/hr 1X ONCE IV Last administered on 06/26at 09:55; Start 06/26/18 at 09:15; Stop 06/26/18 at 10:14; Status DC Insulin Human Regular (HumuLIN R VIAL) 6 unit 1X ONCE IV Last administered on 06/26/18at 09:54; Start 06/26/18 at 09:30; Stop 06/26/18 at 09:31; Status DC Ceftriaxone Sodium 50 ml @ 100 mls/hr 1X ONCE IV Last administered on at 09:56; Start 06/26/18 at 09:30; Stop 06/26/18 at 09:59; Status DC Ceftriaxone Sodium 1 gm/ Dextrose 50 ml @ 100 mls/hr Q24H IV ; Start 06/26/18 at 11:45; Status UNV Sodium Chloride 1,000 ml @ 1,000 mls/hr 1X ONCE IV Last administered on 06/26at 11:00; Start 06/26/18 at 12:00; Stop 06/26/18 at 12:59; Status DC Lactobacillus Rhamnosus (Culturelle) 1 cap BID PO Last administered on at 09:37; Start 06/26/18 at 21:00 Ceftriaxone Sodium (Rocephin) 1 gm Q24H IVP Last administered on 06/27/18at 10: 54; Start 06/27/18 at 10:00 Sodium Chloride 1,000 ml @ 50 mls/hr Q20H IV Last administered on 06/27/18at 07:58; Start 06/26/18 at 14:45 Acetaminophen (Tylenol) 650 mg PRN Q6HRS PRN PO MILD PAIN Last administered on 06/27/18at 05:35; Start 06/26/18 at 15:15 Influenza Virus Vaccine (Afluria Trivalent [id number] Syringe) 0.5 ml ONCE ONCE VAX IM Last administered on 06/27/18at 09:40; Start 06/27/18 at 09:00; Stop 06/27/18 at 09:01; Status DC Morphine Sulfate (Morphine Sulfate) 2 mg PRN Q4HRS PRN IV SEVERE PAIN Last administered on 06/26/18at 21:42; Start 06/26/18 at 21:45 Lactobacillus Rhamnosus (Culturelle) 1 cap BID PO ; Start 06/27/18 at 12:00; Status Cancel Acetaminophen (Tylenol) 650 mg 1X ONCE PO Last administered on 06/27/18at 13: 58; Start 06/27/18 at 12:45; Stop 06/27/18 at 12:46; Status DC Allopurinol (Zyloprim) 300 mg DAILY PO Last administered on 06/27/18at 13:58; Start 06/27/18 at 13:00 Amlodipine Besylate (Norvasc) 10 mg DAILY PO Last administered on 06/27/18at 13 :57; Start 06/27/18 at 13:00 Ascorbic Acid (Vitamin C) 500 mg DAILY PO Last administered on 06/27/18at 13:57 ; Start 06/27/18 at 13:00 Aspirin (Ecotrin) 81 mg HS PO ; Start 06/27/18 at 21:00 Vitamin D (Vitamin D3) 1,000 unit BID PO Last administered on 06/27/18at 13:58 ; Start 06/27/18 at 13:00 Cyanocobalamin (Vitamin B-12) 1,000 mcg DAILY PO Last administered on at 13:56; Start 06/27/18 at 13:00 Duloxetine HCl (Cymbalta) 30 mg HS PO ; Start 06/27/18 at 21:00 Furosemide (Lasix) 40 mg DAILY PO Last administered on 06/27/18at 13:56; Start 06/27/18 at 13:00 Levothyroxine Sodium (Synthroid) 100 mcg DAILY07 PO Last administered on at 13:57; Start 06/27/18 at 13:00 Carvedilol (Coreg) 25 mg BIDWMEALS PO ; Start 06/27/18 at 17:00 Donepezil HCl (Aricept) 10 mg QHS PO ; Start 06/27/18 at 21:00 Lisinopril (Prinivil) 40 mg BID PO Last administered on 06/27/18at 13:56; Start 06/27/18 at 13:00 Ferrous Sulfate (Feosol) 325 mg DAILYWBKFT PO ; Start 06/28/18 at 13:00 Memantine (Namenda) 5 mg BID PO Last administered on 06/27/18at 13:58; Start 06/27/18 at 13:00 Multivitamins (Thera M Plus) 1 tab DAILY PO Last administered on 06/27/18at 13: 56; Start 06/27/18 at 13:00 Potassium Chloride (Klor-Con) 40 meq DAILYWBKFT PO Last administered on at 13:58; Start 06/27/18 at 13:00 Active Scripts Active Reported Potassium Chloride 20 Meq Tablet.er 40 Meq PO DAILY Amlodipine Besylate 10 Mg Tablet 10 Mg PO DAILY Multi-Day Vitamins (Multivitamin) 1 Each Tablet 1 Each PO DAILY Namenda (Memantine Hcl) 10 Mg Tablet 5 Mg PO BID Synthroid (Levothyroxine Sodium) 100 Mcg Tablet 100 Mcg PO DAILY Lasix (Furosemide) 40 Mg Tablet 40 Mg PO DAILY Ferrous Sulfate 325 Mg Tablet. 325 Mg PO DAILY Vasotec (Enalapril Maleate) 20 Mg Tablet 20 Mg PO BID Cymbalta (Duloxetine Hcl) 30 Mg Capsule. 30 Mg PO HS Aricept (Donepezil Hcl) 10 Mg Tablet 10 Mg PO HS Vitamin B-12 (Cyanocobalamin (Vitamin B-12)) 1,000 Mcg Tablet 1,000 Mcg PO DAILY Vitamin D3 (Cholecalciferol (Vitamin D3)) 1,000 Unit Tablet 1,000 Unit PO BID Carvedilol 25 Mg Tablet 25 Mg PO BIDWMEALS Aspir 81 (Aspirin) 81 Mg Tablet.dr 81 Mg PO HS Ascorbic Acid 500 Mg Tablet 500 Mg PO DAILY Allopurinol 300 Mg Tablet 300 Mg PO DAILY Vitals/I & O Vital Sign - Last 24 Hours 06/26/18 06/26/18 06/26/18 06/26/18 14:15 15:00 16:00 16:00 Temp 97.7 97.7 Pulse 80 91 89 Resp 16 18 17 B/P (MAP) 98/62 (74) 111/62 (78) 107/55 (72) Pulse Ox 95 92 93 O2 Delivery Nasal Cannula Nasal Cannula Nasal Cannula Nasal Cannula O2 Flow Rate 3.0 3.0 3.0 3.0 10/1206/26/18 06/26/18 06/26/18 17:00 18:00 19:00 20:00 Temp 98.4 98.4 Pulse 90 94 88 Resp 18 16 18 B/P (MAP) 113/62 (79) 115/63 (80) 112/54 (73) Pulse Ox 87 96 95 O2 Delivery Nasal Cannula Nasal Cannula Nasal Cannula Nasal Cannula O2 Flow Rate 3.0 3.0 3.0 3.0 06/26/18 06/26/18 06/26/18 06/26/18 20:00 21:00 21:42 22:00 Temp 98.8 98.8 Pulse 92 92 92 Resp 16 18 18 B/P (MAP) 109/59 (76) 125/65 (85) 112/64 (80) Pulse Ox 96 92 96 93 O2 Delivery Nasal Cannula Nasal Cannula Nasal Cannula Nasal Cannula O2 Flow Rate 3.0 3.0 3.0 3.0 06/26/18 06/26/18 06/27/18 06/27/18 22:12 23:00 00:00 01:00 Pulse 100 100 Resp 18 18 B/P (MAP) 132/64 (86) Pulse Ox 93 93 93 O2 Delivery Nasal Cannula Nasal Cannula Nasal Cannula Nasal Cannula O2 Flow Rate 3.0 3.0 3.0 3.0 06/27/18 06/27/18 06/27/18 06/27/18 02:00 03:00 04:00 04:00 Temp 98.6 98.6 Pulse 104 102 106 Resp 18 18 16 B/P (MAP) 119/65 (83) 139/52 (81) 130/72 (91) Pulse Ox 93 93 93 O2 Delivery Nasal Cannula Nasal Cannula Nasal Cannula Nasal Cannula O2 Flow Rate 3.0 3.0 3.0 3.0 06/27/18 06/27/18 06/27/18 06/27/18 05:00 06:00 07:00 08:00 Temp 98.7 98.7 Pulse 106 104 103 Resp 18 18 18 B/P (MAP) 138/60 (86) 145/67 (93) 138/69 (92) Pulse Ox 93 93 97 O2 Delivery Nasal Cannula Nasal Cannula Nasal Cannula Nasal Cannula O2 Flow Rate 3.0 3.0 3.0 3.0 06/27/18 06/27/18 06/27/18 06/27/18 09:00 10:06 11:00 13:56 Temp 98.7 99.0 98.7 99.0 Pulse 104 107 99 99 Resp 16 18 B/P (MAP) 140/66 (90) 143/71 (95) 136/71 (92) 136/71 Pulse Ox 97 97 97 O2 Delivery Nasal Cannula Nasal Cannula Nasal Cannula O2 Flow Rate 3.0 3.0 3.0 06/27/18 13:57 Pulse 99 B/P (MAP) 136/71 Intake and Output 06/26/18 06/26/18 06/27/18 15:00 23:00 07:00 Intake Total 2050 ml 837 ml Output Total 90 ml 370 ml 445 ml Balance 1960 ml -370 ml 392 ml ALEXEI TABARES MD Jun 27, 2018 14:04
--- NOTE | 2018-06-27 14:58 | RAD ---
FOOT BILAT 3V Clinical Indication: FALL. BILATERAL FOOT PAIN, WOUNDS Comparison: None. Findings: Left: Mild metatarsus primus varus and hallux valgus. Age-indeterminate nondisplaced fracture of the waist of the fifth proximal phalanx. No dorsal soft tissue swelling. There are calcaneal enthesophytes. Arterial calcifications. Question hammertoe deformities of the second through fifth toes. Right: Mild hallux valgus. Question hammertoe deformities of the second through fifth toes. There is diffuse demineralization. There is a lila in the distal tibia. There is thin lucency along the lila which could suggest loosening. There is distal locking screw which is incompletely imaged. Question whether the screw may be fractured. Consider dedicated radiographs. No dorsal soft tissue swelling of the foot. No obvious acute fracture. IMPRESSION: 1. Suggestion of age-indeterminate nondisplaced fracture of the midshaft of the left fifth proximal phalanx. 2. Diffuse demineralization of the right foot. Please see above discussion. Electronically signed by: Kuldeep Emerson MD (06/27/2018 2:55 PM) [facility]
[2018-06-27] MEDS ORDERED: DEXTROSE 50% 25 GM / 50ML DISP.SYRIN. IV PRN (16:15)
[2018-06-27] MEDS: CARVEDILOL 12.5 MG TABLET. PO SCH (17:11)
[2018-06-27] MEDS: INSULIN LISPRO 300 UNITS/3 ML INSULN.PEN. SQ SCH (17:18)
[2018-06-27] MEDS: ASPIRIN ENTERIC COATED 81 MG TABLET.DR. PO SCH (20:58)
[2018-06-27] MEDS: DONEPEZIL HCL 10 MG TABLET. PO SCH (20:58)
[2018-06-27] MEDS: DULoxetine HCL 30 MG CAPSULE.DR PO SCH (20:58)
[2018-06-28 02:56] VITALS: BP 134/66
[2018-06-28] MEDS: IV NORMAL SALINE 1000ML BAG 1,000 ML IV SCH (04:55)
[2018-06-28] MEDS: LEVOTHYROXINE 100 MCG TABLET PO SCH (05:31)
--- NOTE | 2018-06-28 05:38 | CONS ---
DATE OF CONSULTATION: 06/27/2018 Mil Subramanian APRN, dictating for Tanner Daniel MD REFERRING PHYSICIAN: Dr. Hensley. REASON FOR CONSULTATION: Sepsis. HISTORY OF PRESENT ILLNESS: This patient is an 87-year-old female with dementia, who lives at home with a roommate. According to her daughter, around 2:30 in the morning, the roommate woke up and found the patient asleep in bed. A few hours later, around 7:30, her daughter arrived and found her mother outside in the cold weather, leaning against her walker. Her shoes were off and her knees and feet were bleeding. On arrival to the ER, she was hypothermic with a temperature of 89.5. She was placed on a Alexis Hugger. She had elevated white blood cell count of 13,300 and a lactic acid of 2.8. A head CT showed chronic findings, stable since prior study. No acute intracranial hemorrhage or mass effect. Urinalysis showed many bacteria and positive nitrite. She was dosed with ceftriaxone for infection. ID has been asked to consult for further evaluation and antibiotic management. The patient is now normotensive. She recognizes her family. She said she fell, but is a poor historian and looks to her son-in-law to answer on how. She said she feels pretty good. Denies pain, shortness of air, cough, headache or upset stomach. PAST MEDICAL HISTORY: Dementia; hypothyroidism; chronic diastolic heart failure; hypertension; chronic obstructive pulmonary disease, oxygen dependent. 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 Chronic kidney disease stage 3. PAST SURGICAL HISTORY: Cataract extraction and cholecystectomy. Hernia repair and bilateral knee replacements. FAMILY HISTORY: Positive for heart disease and hypertension. SOCIAL HISTORY: The patient lives at home with her roommate. Nonsmoker. ALLERGIES: No known drug allergies. MEDICATIONS: Ceftriaxone. Other medications are available and have been reviewed on the NOV. REVIEW OF SYSTEMS: Per HPI, otherwise all other review of systems are negative. PHYSICAL EXAMINATION: GENERAL: The patient is propped up in bed, alert, no apparent distress. VITAL SIGNS: Temperature is 98.7, blood pressure 216/122, heart rate 95, respiratory rate 18, pulse oximetry 97% on 3 liters nasal cannula. HEENT: Pupils equally round. Normal conjunctivae. Oral cavity pink and dry. Left periorbital bruising. NECK: Supple. LUNGS: Clear to auscultation. HEART: S1, S2. ABDOMEN: Nondistended. Bowel sounds active, soft, nontender. GENITOURINARY: Escobar in place. EXTREMITIES: Lower extremities are bandaged with some bleeding on dressings. Refer to pictures. SKIN: Warm without rash. NEUROLOGIC: Alert, recognizes her family and answers simple questions and follows commands. LABORATORY DATA: Recent WBC 13,300; hemoglobin 11.7; platelet count 238,000; segs 78%; bands 1%. Creatinine 1.7, BUN 38. Electrolytes are unremarkable. Glucose 425. Lactic acid 3.2 from 2.8. BNP 432. Ammonia 11. Creatine kinase 193, total bilirubin 0.7, AST 16, ALT 21. Troponin less than 0.017. TSH 2.555. Urine and blood cultures pending. Head CT per HPI. Chest x-ray shows mild left basilar atelectasis/infiltrate. IMPRESSION: 1. Hypothermia, improved. 2. Lactic acidosis. 3. Leukocytosis. 4. Bacteriuria. 5. Mild left basilar atelectasis/infiltrate. 6. Multiple wounds, status post fall. 7. Dementia. 8. Chronic obstructive pulmonary disease, oxygen dependent. 9. Chronic kidney disease stage 3. 10. Hypertension. 11. Diabetes mellitus. 12. Hypothyroidism. PLAN: Continue the ceftriaxone for now. Repeat labs and check a procalcitonin level. We will follow up on the culture results. Local wound care. Discussed with family. Thank you, Dr. Hensley, for asking us to participate in this patient's care. Should you have further questions or concerns, please call. TANNER DANIEL MD DR: DEANNE/mariana JOB#: [id number] / [id number] CHRISTINA
[2018-06-28 07:56] VITALS: BP 131/77
[2018-06-28] MEDS: INSULIN LISPRO 300 UNITS/3 ML INSULN.PEN. SQ SCH ×3 (08:12→16:44)
[2018-06-28] MEDS: POTASSIUM CHLORIDE 20 MEQ TABLET.ER. PO SCH (08:50)
[2018-06-28] MEDS: CYANOCOBALAMIN (VITAMIN B-12) 1,000 MCG TABLET. PO SCH (08:50)
[2018-06-28] MEDS: CARVEDILOL 12.5 MG TABLET. PO SCH ×2 (08:50→17:09)
[2018-06-28] MEDS: LACTOBACILLUS RHAMNOSUS GG 1 CAPSULE. PO SCH ×2 (08:50→19:59)
[2018-06-28] MEDS: FUROSEMIDE 40 MG TABLET. PO SCH (08:50)
[2018-06-28] MEDS: CHOLECALCIFEROL (VITAMIN D3) 1,000 UNIT TABLET PO SCH ×2 (08:51→19:58)
[2018-06-28] MEDS: MEMANTINE 10 MG TABLET. PO SCH ×2 (08:51→19:58)
[2018-06-28] MEDS: MULTIVITAMIN with MINERAL TABLET. PO SCH (08:51)
[2018-06-28] MEDS: ASCORBIC ACID 500 MG TABLET PO SCH (08:51)
[2018-06-28] MEDS: amLODIPine BESYLATE 10 MG TABLET PO SCH (08:51)
[2018-06-28] MEDS: ALLOPURINOL 300 MG TABLET. PO SCH (08:51)
[2018-06-28] MEDS: LISINOPRIL 20 MG TABLET PO SCH ×2 (08:52→19:59)
[2018-06-28] MEDS: cefTRIAXone IV Push 1 GM VIAL. IVP SCH ×2 (10:00→10:15)
--- NOTE | 2018-06-28 11:08 | PDOC ---
Infectious Disease Note Subjective Subjective pt is feeling better ROS ROS no n/v/d/sob/fever Vital Sign Vital Signs Vital Signs Date Time Temp Pulse Resp B/P (MAP) Pulse Ox O2 Delivery O2 Flow Rate FiO2 06/28/18 08:52 108 131/77 06/28/18 08:00 Nasal Cannula 2.0 06/28/18 07:56 97.9 18 90 97.9 Physical Exam PHYSICAL EXAM GENERAL: Lying down, appears comfortable HEENT: Oral cavity pink and dry. Left periorbital bruising. NECK: Supple. LUNGS: Clear to auscultation. HEART: S1, S2. ABDOMEN: Nondistended. Bowel sounds active, soft, nontender. EXTREMITIES: Multiple abrasions knees and feet SKIN: Warm without rash. NEUROLOGIC: Alert, recognizes her family, oriented to place, answers simple questions and follows commands. Labs Lab Laboratory Tests Test 06/27/18 16:48 06/27/18 20:39 Glucose (Fingerstick) 186 mg/dL (70-99) 220 mg/dL (70-99) Micro Microbiology 06/26/18 Blood Culture - Preliminary, Resulted NO GROWTH AFTER 1 DAY Objective Assessment Hypothermia - improved Lactic acidosis - improved Leukocytosis - improved Bacteriuria Mild left basilar atelectasis/infiltrate Multiple superficial wounds knees & feet s/p fall Displaced avulsion fracture medial base of 2nd digit proximal phalanx, right. s/p nail trimming Dementia COPD, O2 dependent CKD stage 3 HTN DM Hypothyroidism Plan Plan of Care Rocephin for now Procalcitonin 6.29 f/u cultures Local wound care D/w son and daughter D/w RN Attending Co-Sign The patient was seen and interviewed as well as examined at the bedside. The chart was reviewed. The case was discussed. Agree with the plan of care. KELSY FAROOQ APRN Jun 28, 2018 11:08 CANDACE LONDONO MD Jun 28, 2018 14:27
[2018-06-28 11:18] VITALS: BP 104/60
[2018-06-28] MEDS: FERROUS SULFATE 325 MG TABLET. PO SCH (12:30)
--- NOTE | 2018-06-28 13:22 | PDOC ---
PROGRESS NOTES Chief Complaint Chief Complaint Hypothermia( found outside in the cold) Lactic acidosis Leukocytosis Bacteriuria Mild left basilar atelectasis/infiltrate Multiple wounds s/p fall Dementia COPD, O2 dependent CKD stage 3 Hypertension DM2 Hypothyroidism DNR History of Present Illness History of Present Illness Pt seen and examined. Pt seemed lethargic, but did respond to commands. On oxygen. Now normothermic. Her daughter was present and was her historian. Patient lives alone at home DNR VSS DW nursing Vitals Vitals Vital Signs Date Time Temp Pulse Resp B/P (MAP) Pulse Ox O2 Delivery O2 Flow Rate FiO2 06/28/18 11:18 98.5 84 18 104/60 (75) 91 Nasal Cannula 3.0 98.5 Physical Exam General: No acute distress, Other (Lethargic. L facial bruising. ) Heart: Regular rate Lungs: Clear Abdomen: Normal bowel sounds Extremities: No cyanosis, Other Skin: Other (Multiple LE abrasion with small left periorbital ecchymoses) Labs LABS Laboratory Tests Test 06/27/18 16:48 06/27/18 20:39 Glucose (Fingerstick) 186 mg/dL (70-99) 220 mg/dL (70-99) Review of Systems Review of Systems Pt denies SOA, denies angina. Assessment and Plan Assessmemt and Plan Problems Medical Problems: (1) Hypothermia Status: Acute (2) Urinary tract infection Status: Acute Assessment: Hypothermia(found down in the cold) Lactic acidosis Leukocytosis Bacteriuria Mild left basilar atelectasis/infiltrate Multiple wounds s/p fall Dementia COPD, O2 dependent CKD stage 3 Hypertension DM2 Hypothyroidism DNR Plan: Monitor K, was 5 and dropped to 3.7. Give K if below 3.5 Recheck labs Cardiac monitoring Encourage PO intake Continue oxygen via nasal cannula Home medications Wound care PT/OT Discharge disposition pending Comment Review of Relevant I have reviewed the following items alexei (where applicable) has been applied. Labs Laboratory Tests Test 06/26/18 13:55 06/26/18 14:05 06/26/18 15:00 06/26/18 16:18 Glucose (Fingerstick) 250 mg/dL (70-99) Lactic Acid Level 3.2 mmol/L (0.4-2.0) Nasal Screen MRSA (PCR) Negative (Negative) VV-Cce-A-Type Natriuretic Peptide 432 pg/mL (0-449) Thyroid Stimulating Hormone (TSH) 2.555 uIU/mL (0.358-3.74) Test 06/26/18 17:57 06/27/18 05:00 06/27/18 09:45 06/27/18 16:48 Glucose (Fingerstick) 176 mg/dL (70-99) 186 mg/dL (70-99) Sodium Level 140 mmol/L (136-145) Potassium Level 3.7 mmol/L (3.5-5.1) Chloride Level 104 mmol/L (98-107) Carbon Dioxide Level 29 mmol/L (21-32) Anion Gap 7 (6-14) Blood Urea Nitrogen 29 mg/dL (7-20) Creatinine 1.3 mg/dL (0.6-1.0) Estimated GFR (Cockcroft-Gault) 38.7 Glucose Level 172 mg/dL (70-99) Calcium Level 8.6 mg/dL (8.5-10.1) Magnesium Level 1.9 mg/dL (1.8-2.4) White Blood Count 6.6 x10^3/uL (4.0-11.0) Red Blood Count 3.23 x10^6/uL (3.50-5.40) Hemoglobin 10.2 g/dL (12.0-15.5) Hematocrit 30.4 % (36.0-47.0) Mean Corpuscular Volume 94 fL (79-100) Mean Corpuscular Hemoglobin 32 pg (25-35) Mean Corpuscular Hemoglobin Concent 34 g/dL (31-37) Red Cell Distribution Width 14.7 % (11.5-14.5) Platelet Count 166 x10^3/uL (140-400) Neutrophils (%) (Auto) 81 % (31-73) Lymphocytes (%) (Auto) 9 % (24-48) Monocytes (%) (Auto) 7 % (0-9) Eosinophils (%) (Auto) 2 % (0-3) Basophils (%) (Auto) 1 % (0-3) Neutrophils # (Auto) 5.4 x10^3uL (1.8-7.7) Lymphocytes # (Auto) 0.6 x10^3/uL (1.0-4.8) Monocytes # (Auto) 0.5 x10^3/uL (0.0-1.1) Eosinophils # (Auto) 0.1 x10^3/uL (0.0-0.7) Basophils # (Auto) 0.0 x10^3/uL (0.0-0.2) Lactic Acid Level 0.4 mmol/L (0.4-2.0) Procalcitonin 6.29 ng/mL (0.00-0.10) Test 06/27/18 20:39 Glucose (Fingerstick) 220 mg/dL (70-99) Laboratory Tests Test 06/27/18 16:48 06/27/18 20:39 Glucose (Fingerstick) 186 mg/dL (70-99) 220 mg/dL (70-99) Microbiology 06/26/18 Blood Culture - Preliminary, Resulted NO GROWTH AFTER 1 DAY Medications Current Medications Sodium Chloride 1,000 ml @ 1,000 mls/hr 1X ONCE IV Last administered on 06/26at 09:55; Start 06/26/18 at 09:15; Stop 06/26/18 at 10:14; Status DC Insulin Human Regular (HumuLIN R VIAL) 6 unit 1X ONCE IV Last administered on 06/26/18at 09:54; Start 06/26/18 at 09:30; Stop 06/26/18 at 09:31; Status DC Ceftriaxone Sodium 50 ml @ 100 mls/hr 1X ONCE IV Last administered on at 09:56; Start 06/26/18 at 09:30; Stop 06/26/18 at 09:59; Status DC Ceftriaxone Sodium 1 gm/ Dextrose 50 ml @ 100 mls/hr Q24H IV ; Start 06/26/18 at 11:45; Status UNV Sodium Chloride 1,000 ml @ 1,000 mls/hr 1X ONCE IV Last administered on 06/26at 11:00; Start 06/26/18 at 12:00; Stop 06/26/18 at 12:59; Status DC Lactobacillus Rhamnosus (Culturelle) 1 cap BID PO Last administered on at 08:50; Start 06/26/18 at 21:00 Ceftriaxone Sodium (Rocephin) 1 gm Q24H IVP Last administered on 06/27/18at 10: 54; Start 06/27/18 at 10:00; Stop 06/28/18 at 10:14; Status DC Sodium Chloride 1,000 ml @ 50 mls/hr Q20H IV Last administered on 06/28/18at 04:55; Start 06/26/18 at 14:45 Acetaminophen (Tylenol) 650 mg PRN Q6HRS PRN PO MILD PAIN Last administered on 06/27/18at 05:35; Start 06/26/18 at 15:15 Influenza Virus Vaccine (Afluria Trivalent 1832-1313 Syringe) 0.5 ml ONCE ONCE VAX IM Last administered on 06/27/18at 09:40; Start 06/27/18 at 09:00; Stop 06/27/18 at 09:01; Status DC Morphine Sulfate (Morphine Sulfate) 2 mg PRN Q4HRS PRN IV SEVERE PAIN Last administered on 06/26/18at 21:42; Start 06/26/18 at 21:45 Lactobacillus Rhamnosus (Culturelle) 1 cap BID PO ; Start 06/27/18 at 12:00; Status Cancel Acetaminophen (Tylenol) 650 mg 1X ONCE PO Last administered on 06/27/18at 13: 58; Start 06/27/18 at 12:45; Stop 06/27/18 at 12:46; Status DC Allopurinol (Zyloprim) 300 mg DAILY PO Last administered on 06/28/18 08:51; Start 06/27/18 at 13:00 Amlodipine Besylate (Norvasc) 10 mg DAILY PO Last administered on 06/28/18at 08 :51; Start 06/27/18 at 13:00 Ascorbic Acid (Vitamin C) 500 mg DAILY PO Last administered on 06/28/18 08:51 ; Start 06/27/18 at 13:00 Aspirin (Ecotrin) 81 mg HS PO Last administered on 06/27/18 20:58; Start at 21:00 Vitamin D (Vitamin D3) 1,000 unit BID PO Last administered on 06/28/18 08:51 ; Start 06/27/18 at 13:00 Cyanocobalamin (Vitamin B-12) 1,000 mcg DAILY PO Last administered on 08:50; Start 06/27/18 at 13:00 Duloxetine HCl (Cymbalta) 30 mg HS PO Last administered on 06/27/18 20:58; Start 06/27/18 at 21:00 Furosemide (Lasix) 40 mg DAILY PO Last administered on 06/28/18 08:50; Start 06/27/18 at 13:00 Levothyroxine Sodium (Synthroid) 100 mcg DAILY07 PO Last administered on 05:31; Start 06/27/18 at 13:00 Carvedilol (Coreg) 25 mg BIDWMEALS PO Last administered on 06/28/18 08:50; Start 06/27/18 at 17:00 Donepezil HCl (Aricept) 10 mg QHS PO Last administered on 06/27/18 20:58; Start 06/27/18 at 21:00 Lisinopril (Prinivil) 40 mg BID PO Last administered on 06/28/18 08:52; Start 06/27/18 at 13:00 Ferrous Sulfate (Feosol) 325 mg DAILYWBKFT PO Last administered on 06/28/18 12:30; Start 06/28/18 at 13:00 Memantine (Namenda) 5 mg BID PO Last administered on 06/28/18 08:51; Start 06/27/18 at 13:00 Multivitamins (Thera M Plus) 1 tab DAILY PO Last administered on 06/28/18 08: 51; Start 06/27/18 at 13:00 Potassium Chloride (Klor-Con) 40 meq DAILYWBKFT PO Last administered on at 08:50; Start 06/27/18 at 13:00 Insulin Human Lispro (HumaLOG) 0-9 UNITS TIDWMEALS SQ Last administered on at 12:16; Start 06/27/18 at 17:00 Dextrose (Dextrose 50%-Water Syringe) 12.5 gm PRN Q15MIN PRN IV SEE COMMENTS; Start 06/27/18 at 16:15 Ceftriaxone Sodium (Rocephin) 1 gm Q24H IVP Last administered on 06/28/18at 10: 15; Start 06/28/18 at 10:15 Active Scripts Active Reported Potassium Chloride 20 Meq Tablet.er 40 Meq PO DAILY Amlodipine Besylate 10 Mg Tablet 10 Mg PO DAILY Multi-Day Vitamins (Multivitamin) 1 Each Tablet 1 Each PO DAILY Namenda (Memantine Hcl) 10 Mg Tablet 5 Mg PO BID Synthroid (Levothyroxine Sodium) 100 Mcg Tablet 100 Mcg PO DAILY Lasix (Furosemide) 40 Mg Tablet 40 Mg PO DAILY Ferrous Sulfate 325 Mg Tablet.dr 325 Mg PO DAILY Vasotec (Enalapril Maleate) 20 Mg Tablet 20 Mg PO BID Cymbalta (Duloxetine Hcl) 30 Mg Capsule.dr 30 Mg PO HS Aricept (Donepezil Hcl) 10 Mg Tablet 10 Mg PO HS Vitamin B-12 (Cyanocobalamin (Vitamin B-12)) 1,000 Mcg Tablet 1,000 Mcg PO DAILY Vitamin D3 (Cholecalciferol (Vitamin D3)) 1,000 Unit Tablet 1,000 Unit PO BID Carvedilol 25 Mg Tablet 25 Mg PO BIDWMEALS Aspir 81 (Aspirin) 81 Mg Tablet.dr 81 Mg PO HS Ascorbic Acid 500 Mg Tablet 500 Mg PO DAILY Allopurinol 300 Mg Tablet 300 Mg PO DAILY Vitals/I & O Vital Sign - Last 24 Hours 06/27/18 06/27/18 06/27/18 06/27/18 13:56 13:57 14:00 17:11 Temp 99.0 99.0 Pulse 99 99 99 94 B/P (MAP) 136/71 136/71 136/63 (87) 146/68 Pulse Ox 97 O2 Delivery Nasal Cannula O2 Flow Rate 3.0 06/27/18 06/27/18 06/27/18 06/27/18 19:00 20:00 23:00 23:08 Temp 99.7 99.0 99.7 99.0 Pulse 91 102 102 Resp 18 18 B/P (MAP) 105/53 (70) 141/71 (94) 141/71 Pulse Ox 93 94 O2 Delivery Nasal Cannula Nasal Cannula Nasal Cannula O2 Flow Rate 3.0 2.0 3.0 06/28/18 06/28/18 06/28/18 06/28/18 02:56 07:56 08:00 08:50 Temp 98.6 97.9 98.6 97.9 Pulse 105 108 108 Resp 18 18 B/P (MAP) 134/66 (88) 131/77 (95) 131/77 Pulse Ox 93 90 O2 Delivery Nasal Cannula Nasal Cannula Nasal Cannula O2 Flow Rate 3.0 3.0 2.0 06/28/18 06/28/18 06/28/18 08:51 08:52 11:18 Temp 98.5 98.5 Pulse 108 108 84 Resp 18 B/P (MAP) 131/77 131/77 104/60 (75) Pulse Ox 91 O2 Delivery Nasal Cannula O2 Flow Rate 3.0 Intake and Output 06/27/18 06/27/18 06/28/18 15:00 23:00 07:00 Intake Total 620 ml 90 ml Output Total 1550 ml 275 ml Balance 620 ml -1460 ml -275 ml JESSIE RIDDLE III DO Jun 28, 2018 13:22
[2018-06-28 15:11] VITALS: BP 105/60
[2018-06-28 19:00] VITALS: BP 130/66
[2018-06-28] MEDS: DONEPEZIL HCL 10 MG TABLET. PO SCH (19:58)
[2018-06-28] MEDS: ASPIRIN ENTERIC COATED 81 MG TABLET.DR. PO SCH (19:58)
[2018-06-28] MEDS: DULoxetine HCL 30 MG CAPSULE.DR PO SCH (19:59)
[2018-06-28 23:00] VITALS: BP 126/62
[2018-06-29] MEDS: IV NORMAL SALINE 1000ML BAG 1,000 ML IV SCH ×2 (00:34→21:17)
[2018-06-29 03:00] VITALS: BP 111/59
[2018-06-29 07:00] VITALS: BP 138/63
[2018-06-29] MEDS: LEVOTHYROXINE 100 MCG TABLET PO SCH (07:17)
[2018-06-29] MEDS: LISINOPRIL 20 MG TABLET PO SCH ×2 (09:08→21:18)
[2018-06-29] MEDS: ASCORBIC ACID 500 MG TABLET PO SCH (09:08)
[2018-06-29] MEDS: MULTIVITAMIN with MINERAL TABLET. PO SCH (09:09)
[2018-06-29] MEDS: ALLOPURINOL 300 MG TABLET. PO SCH (09:09)
[2018-06-29] MEDS: MEMANTINE 10 MG TABLET. PO SCH ×2 (09:09→21:18)
[2018-06-29] MEDS: CYANOCOBALAMIN (VITAMIN B-12) 1,000 MCG TABLET. PO SCH (09:09)
[2018-06-29] MEDS: LACTOBACILLUS RHAMNOSUS GG 1 CAPSULE. PO SCH ×2 (09:09→21:18)
[2018-06-29] MEDS: FUROSEMIDE 40 MG TABLET. PO SCH (09:09)
[2018-06-29] MEDS: CARVEDILOL 12.5 MG TABLET. PO SCH ×2 (09:10→19:37)
[2018-06-29] MEDS: POTASSIUM CHLORIDE 20 MEQ TABLET.ER. PO SCH (09:10)
[2018-06-29] MEDS: CHOLECALCIFEROL (VITAMIN D3) 1,000 UNIT TABLET PO SCH ×2 (09:10→21:18)
[2018-06-29] MEDS: amLODIPine BESYLATE 10 MG TABLET PO SCH (09:10)
[2018-06-29] MEDS: INSULIN LISPRO 300 UNITS/3 ML INSULN.PEN. SQ SCH ×3 (09:19→17:00)
[2018-06-29] MEDS: cefTRIAXone IV Push 1 GM VIAL. IVP SCH (10:15)
[2018-06-29 11:00] VITALS: BP 106/47
[2018-06-29] MEDS ORDERED: CEPH-263 PO (11:06)
--- NOTE | 2018-06-29 11:07 | DISCH ---
DISCHARGE DISCHARGE INFORMATION: DISCHARGE DATE: Jun 29, 2018 FINAL DIAGNOSIS Problems Medical Problems: (1) Hypothermia Status: Acute (2) Urinary tract infection Status: Acute CONDITION ON DISCHARGE: Stable CODE STATUS: Code Status: DNR/DNI SNF: SNF STAY <30 DAYS: Yes POST DISCHARGE ORDERS: DIET AFTER DISCHARGE: Cardiac FOLLOW-UP: PHYSICIAN FOLLOW-UP: < 2 weeks, TREATMENT/EQUIPMENT ORDERS: ADAPTIVE EQUIPMENT NEEDED: Front wheeled walker Physical Therapy For: Evalulation/Treatment Occupational Therapy For: Evaluation/Treatment DISCHARGE MEDICATIONS: Home Meds Active Scripts Amoxicillin/Potassium Clav (AUGMENTIN 500-125 TABLET) 1 Each Tablet, 1 TAB PO BID, #12 TAB Prov:ANNA MARIE CAVAZOS MD 06/30/18 Reported Medications Potassium Chloride (POTASSIUM CHLORIDE) 20 Meq Tablet.er, 40 MEQ PO DAILY, TAB.SR 06/26/18 Amlodipine Besylate (AMLODIPINE BESYLATE) 10 Mg Tablet, 10 MG PO DAILY, TAB 06/26/18 Multivitamin (MULTI-DAY VITAMINS) 1 Each Tablet, 1 EACH PO DAILY 10/16/16 Memantine Hcl (NAMENDA) 10 Mg Tablet, 5 MG PO BID 10/16/16 Levothyroxine Sodium (SYNTHROID) 100 Mcg Tablet, 100 MCG PO DAILY for THYROID SUPPLEMENT 10/16/16 Furosemide (LASIX) 40 Mg Tablet, 40 MG PO DAILY 10/16/16 Ferrous Sulfate (FERROUS SULFATE) 325 Mg Tablet.dr, 325 MG PO DAILY 10/16/16 Enalapril Maleate (VASOTEC) 20 Mg Tablet, 20 MG PO BID 10/16/16 Duloxetine Hcl (CYMBALTA) 30 Mg Capsule.dr, 30 MG PO HS 10/16/16 Donepezil Hcl (ARICEPT) 10 Mg Tablet, 10 MG PO HS 10/16/16 Cyanocobalamin (Vitamin B-12) (VITAMIN B-12) 1,000 Mcg Tablet, 1000 MCG PO DAILY 10/16/16 Cholecalciferol (Vitamin D3) (VITAMIN D3) 1,000 Unit Tablet, 1000 UNIT PO BID 10/16/16 Carvedilol (CARVEDILOL) 25 Mg Tablet, 25 MG PO BIDWMEALS 10/16/16 Aspirin (ASPIR 81) 81 Mg Tablet.dr, 81 MG PO HS 10/16/16 Ascorbic Acid (ASCORBIC ACID) 500 Mg Tablet, 500 MG PO DAILY 10/16/16 Allopurinol (ALLOPURINOL) 300 Mg Tablet, 300 MG PO DAILY 10/16/16 ANNA MARIE CAVAZOS MD Jun 29, 2018 11:07
--- NOTE | 2018-06-29 11:10 | PDOC3 ---
Discharge Summary Visit Information Date of Admission: Jun 26, 2018 Date of Discharge: Jun 29, 2018 Admitting Diagnosis: confusion, Final Diagnosis Hypothermia w/ delirium, encephaloapthy severe sepsis Mild left basilar atelectasis/infiltrate Multiple wounds s/p fall Dementia w/ acute metabolic encephalopahty COPD, O2 dependent CKD stage 3 Hypertension DM2 Hypothyroidism DNR Problems Medical Problems: (1) Hypothermia Status: Acute (2) Urinary tract infection Status: Acute Brief Hospital Course Allergies Allergies Coded Allergies Type Severity Reaction Last Updated Verified No Known Drug Allergies 11/14/16 No Vital Signs Vital Signs Date Time Temp Pulse Resp B/P (MAP) Pulse Ox O2 Delivery O2 Flow Rate FiO2 06/29/18 09:10 88 111/59 06/29/18 07:00 97.7 18 94 Nasal Cannula 2.0 97.7 Lab Results Laboratory Tests Test 06/27/18 16:48 06/27/18 20:39 06/28/18 07:22 06/28/18 11:01 Glucose (Fingerstick) 186 mg/dL (70-99) 220 mg/dL (70-99) 170 mg/dL (70-99) 174 mg/dL (70-99) Test 06/28/18 16:13 06/28/18 20:41 06/29/18 07:52 Glucose (Fingerstick) 131 mg/dL (70-99) 193 mg/dL (70-99) 174 mg/dL (70-99) Laboratory Tests Test 06/28/18 16:13 06/28/18 20:41 06/29/18 07:52 Glucose (Fingerstick) 131 mg/dL (70-99) 193 mg/dL (70-99) 174 mg/dL (70-99) Brief Hospital Course Ms. Ventura is a 87 old confused at home, chronic dementia, had UTI, was septic, confused at home, found outside in the rain, down 49 degress out and raining and she was soaked, no shoes, confused T 89 on admit UTI, sepsis rocephin and IV fluid, she was near baseline at DC< just weak TIme > 35 min face to face eval Discharge Information Condition at Discharge: Improved Follow Up: Weeks Disposition/Orders: D/C to Another Facility Scheduled Allopurinol (Allopurinol) 300 Mg Tablet, 300 MG PO DAILY, (Reported) Entered as Reported by: YOLY MORALES on 10/16/16 1154 Last Taken: Unknown Dose on 06/25/18 Last Action: Continued on 06/27/18 1242 by ROSEMARIE LUCIO Amlodipine Besylate (Amlodipine Besylate) 10 Mg Tablet, 10 MG PO DAILY, ( Reported) Entered as Reported by: JARETH COCHRAN on 06/26/18 1331 Last Taken: Unknown Dose on 06/25/18 Last Action: Continued on 06/27/18 1242 by ROSEMARIE LUCIO Amoxicillin/Potassium Clav (Augmentin 500-125 Tablet) 1 Each Tablet, 1 TAB PO BID, #12 Prescribed by: ANNA MARIE CAVAZOS on 06/30/18 1006 Ascorbic Acid (Ascorbic Acid) 500 Mg Tablet, 500 MG PO DAILY, (Reported) Entered as Reported by: YOLY MORALES on 10/16/16 1154 Last Taken: Unknown Dose on 06/25/18 Last Action: Continued on 06/27/18 1242 by ROSEMARIE LUCIO Aspirin (Aspir 81) 81 Mg Tablet.dr, 81 MG PO HS, (Reported) Entered as Reported by: YOLY MORALES on 10/16/16 1154 Last Taken: Unknown Dose on 06/25/18 Last Action: Continued on 06/27/18 1242 by ROSEMARIE LUCIO Carvedilol (Carvedilol) 25 Mg Tablet, 25 MG PO BIDWMEALS, (Reported) Entered as Reported by: YOLY MORALES on 10/16/16 1154 Last Taken: Unknown Dose on 06/25/18 Last Action: Converted on 06/27/18 1242 by ROSEMARIE LUCIO Cholecalciferol (Vitamin D3) (Vitamin D3) 1,000 Unit Tablet, 1,000 UNIT PO BID, (Reported) Entered as Reported by: YOLY MORALES on 10/16/16 1154 Last Taken: Unknown Dose on 06/25/18 Last Action: Continued on 06/27/18 1242 by ROSEMARIE LUCIO Cyanocobalamin (Vitamin B-12) (Vitamin B-12) 1,000 Mcg Tablet, 1,000 MCG PO DAILY, (Reported) Entered as Reported by: YOLY MORALES on 10/16/16 1154 Last Taken: Unknown Dose on 06/25/18 Last Action: Continued on 06/27/18 1242 by ROSEMARIE LUICO Donepezil Hcl (Aricept) 10 Mg Tablet, 10 MG PO HS, (Reported) Entered as Reported by: YOLY MORALES on 10/16/16 1154 Last Taken: Unknown Dose on 06/25/18 Last Action: Converted on 06/27/18 1242 by ROSEMARIE LUCIO Duloxetine Hcl (Cymbalta) 30 Mg Capsule.dr, 30 MG PO HS, (Reported) Entered as Reported by: YOLY MORALES on 10/16/16 1154 Last Taken: Unknown Dose on 06/25/18 Last Action: Continued on 06/27/18 1242 by ROSEMARIE LUCIO Enalapril Maleate (Vasotec) 20 Mg Tablet, 20 MG PO BID, (Reported) Entered as Reported by: YOLY MORALES on 10/16/16 1154 Last Taken: Unknown Dose on 06/25/18 Last Action: Converted on 06/27/18 1242 by ROSEMARIE LUCIO Ferrous Sulfate (Ferrous Sulfate) 325 Mg Tablet.dr, 325 MG PO DAILY, (Reported) Entered as Reported by: YOLY MORALES on 10/16/16 1154 Last Taken: Unknown Dose on 06/25/18 Last Action: Converted on 06/27/18 1242 by ROSEMARIE LUCIO Furosemide (Lasix) 40 Mg Tablet, 40 MG PO DAILY, (Reported) Entered as Reported by: YOLY MORALES on 10/16/16 1154 Last Taken: Unknown Dose on 06/25/18 Last Action: Continued on 06/27/18 1242 by ROSEMARIE LUCIO Levothyroxine Sodium (Synthroid) 100 Mcg Tablet, 100 MCG PO DAILY for THYROID SUPPLEMENT, (Reported) Entered as Reported by: YOLY MORALES on 10/16/16 1154 Last Taken: Unknown Dose on 06/25/18 Last Action: Continued on 06/27/18 1242 by ROSEMARIE LUCIO Memantine Hcl (Namenda) 10 Mg Tablet, 5 MG PO BID, (Reported) Entered as Reported by: YOLY MORALES on 10/16/16 1154 Last Taken: Unknown Dose on 06/25/18 Last Action: Converted on 06/27/18 1242 by ROSEAMRIE LUCIO Multivitamin (Multi-Day Vitamins) 1 Each Tablet, 1 EACH PO DAILY, (Reported) Entered as Reported by: YOLY MORALES on 10/16/16 1154 Last Taken: Unknown Dose on 06/25/18 Last Action: Converted on 06/27/18 124 by ROSEMARIE LUCIO Potassium Chloride (Potassium Chloride) 20 Meq Tablet.er, 40 MEQ PO DAILY, ( Reported) Entered as Reported by: JARETH COCHRAN on 06/26/18 1332 Last Taken: Unknown Dose on 06/25/18 Last Action: Converted on 06/27/181241 by ROSEMARIE LUCIO Patient Instructions Patient Instructions > 30 min ecoli cx back, cipro resistant, 2nd gen cephalosporin resistant, sens to Augmentin, will complete 10 days ANNA MARIE CAVAZOS MD Jun 29, 2018 11:10
--- NOTE | 2018-06-29 12:52 | PDOC ---
Infectious Disease Note Subjective Subjective pt is feeling better Eating. No gross F/C/S/n/V/SOA/rash ROS ROS o/w neg Vital Sign Vital Signs Vital Signs Date Time Temp Pulse Resp B/P (MAP) Pulse Ox O2 Delivery O2 Flow Rate FiO2 06/29/18 09:10 88 111/59 06/29/18 08:00 Nasal Cannula 2.0 06/29/18 07:00 97.7 18 94 97.7 Physical Exam PHYSICAL EXAM GENERAL: Sitting up in bed and eating. appears comfortable HEENT: Oral cavity pink and dry. Left periorbital bruising. NECK: Supple. LUNGS: Clear to auscultation. HEART: S1, S2. ABDOMEN: Nondistended. Bowel sounds active, soft, nontender. EXTREMITIES: Multiple abrasions knees and feet R 2nd toe with ? tendon exposure SKIN: Warm without rash. NEUROLOGIC: Alert, recognizes her family, oriented to place, answers simple questions and follows commands. Labs Lab Laboratory Tests Test 06/28/18 16:13 06/28/18 20:41 06/29/18 07:52 06/29/18 11:47 Glucose (Fingerstick) 131 mg/dL (70-99) 193 mg/dL (70-99) 174 mg/dL (70-99) 187 mg/dL (70-99) Micro Microbiology 06/26/18 Blood Culture - Preliminary, Resulted NO GROWTH AFTER 2 DAYS 06/26/18 Urine Culture - Preliminary, Resulted 06/26/18 Urine Culture Result 1 (ANGELA), Resulted Pending Objective Assessment Hypothermia - improved Lactic acidosis - improved Leukocytosis - improved Ecoli UTi - POA Mild left basilar atelectasis/infiltrate Multiple superficial wounds knees & feet s/p fall Displaced avulsion fracture medial base of 2nd digit proximal phalanx, right. ? exposed tendon s/p nail trimming Dementia COPD, O2 dependent CKD stage 3 HTN DM Hypothyroidism Plan Plan of Care Cont Rocephin for now - f/u sensitivities Await Ortho eval Procalcitonin 6.29 f/u cultures Local wound care Would hold d/c today D/w son and daughter D/w SHAMEKA RAYO MD Jun 29, 2018 12:52
[2018-06-29] MEDS: FERROUS SULFATE 325 MG TABLET. PO SCH (12:56)
[2018-06-29 15:00] VITALS: BP 133/63
--- NOTE | 2018-06-29 17:07 | RAD ---
2 view study of the right tibia and fibula Clinical indications: Loosening. COMPARISON: None available. FINDINGS: A long intramedullary lila and spacer device is present with 2 proximal screws and 2 distal screws. There is a fracture of the most superior screw. There is a fracture of the most inferior screw. There is diffuse radiolucency around the surgical hardware consistent with loosening and/or infection. There is a mid shaft tibial defect in the region of the spacer device. Generalized osteopenia is seen. Old healed fracture of the proximal shaft of the right fibula is seen. IMPRESSION: Diffuse radiolucency around the metallic surgical hardware consistent with loosening and/or infection. Electronically signed by: Terence Mason MD (06/29/2018 5:04 PM) [facility]
[2018-06-29 19:00] VITALS: BP 129/74
[2018-06-29] MEDS: DULoxetine HCL 30 MG CAPSULE.DR PO SCH (21:18)
[2018-06-29] MEDS: DONEPEZIL HCL 10 MG TABLET. PO SCH (21:18)
[2018-06-29] MEDS: ASPIRIN ENTERIC COATED 81 MG TABLET.DR. PO SCH (21:18)
[2018-06-29 23:00] VITALS: BP 125/69
[2018-06-30 03:00] VITALS: BP 130/67
[2018-06-30] MEDS: LEVOTHYROXINE 100 MCG TABLET PO SCH (05:46)
[2018-06-30 07:00] VITALS: BP 144/78
[2018-06-30] MEDS: FUROSEMIDE 40 MG TABLET. PO SCH (08:42)
[2018-06-30] MEDS: POTASSIUM CHLORIDE 20 MEQ TABLET.ER. PO SCH (08:42)
[2018-06-30] MEDS: MULTIVITAMIN with MINERAL TABLET. PO SCH (08:42)
[2018-06-30] MEDS: MEMANTINE 10 MG TABLET. PO SCH (08:43)
[2018-06-30] MEDS: LACTOBACILLUS RHAMNOSUS GG 1 CAPSULE. PO SCH (08:43)
[2018-06-30] MEDS: LISINOPRIL 20 MG TABLET PO SCH (08:43)
[2018-06-30] MEDS: ASCORBIC ACID 500 MG TABLET PO SCH (08:43)
[2018-06-30] MEDS: CYANOCOBALAMIN (VITAMIN B-12) 1,000 MCG TABLET. PO SCH (08:43)
[2018-06-30] MEDS: ALLOPURINOL 300 MG TABLET. PO SCH (08:44)
[2018-06-30] MEDS: FERROUS SULFATE 325 MG TABLET. PO SCH (08:44)
[2018-06-30] MEDS: amLODIPine BESYLATE 10 MG TABLET PO SCH (08:44)
[2018-06-30] MEDS: CARVEDILOL 12.5 MG TABLET. PO SCH (08:44)
[2018-06-30] MEDS: CHOLECALCIFEROL (VITAMIN D3) 1,000 UNIT TABLET PO SCH (08:46)
[2018-06-30] MEDS: INSULIN LISPRO 300 UNITS/3 ML INSULN.PEN. SQ SCH ×2 (08:58→12:52)
--- NOTE | 2018-06-30 08:59 | CONS ---
DATE OF CONSULTATION: 06/29/2018 REQUESTING PHYSICIAN: Dr. Hensley. REASON FOR CONSULTATION: Loose hardware, right leg. HISTORY OF PRESENT ILLNESS: The patient is an 87-year-old female who is today interviewed and examined with several of her family members present, apparently has some dementia issues, lives by herself and ambulates with the assistance of a walker. Apparently, she had wandered outside and was found outside holding onto her walker with some abrasions in the lower extremities and was hypothermic on admission. She has subsequently undergone medical treatment and had mentioned previous treatment of a tibial lesion and orthopedic consultation was requested for evaluation of the tibia and hardware based on some concerns of potential loosening. 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 Armenta where apparently the sarcoma was not directly involved in the bone, but had eroded it away. She therefore underwent an implant to the bone, which reinforced the area of the bone loss and stabilized it with basically spacer and intramedullary device. She subsequently underwent a flap coverage from where the sarcoma was resected and she is regularly followed by Dr. Armenta and apparently was actually scheduled to be seen today at Clinic, but due to her hospital admission, that had to be course put off. She does complain of some occasional pain getting up and around walking, but does not seem to be limiting her that much from her reaction and she is certainly not complaining of it at this time. 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 PAST SURGICAL HISTORY: Significant for resection of the sarcoma, the skin graft, and placement of the hardware in the tibia. FAMILY HISTORY: Significant for hypertension. MEDICATIONS: List is reviewed. ALLERGIES: She has no known drug allergies. SOCIAL HISTORY: Lives alone, has dementia. Denies smoking, alcohol or drug use. REVIEW OF SYSTEMS: She really denies any other injury or joint pain at this time. She is relatively quiet, letting her family respond to the questions, although she is pleasant, conversational, and alert. PHYSICAL EXAMINATION: EXTREMITIES: She has an area of previous skin graft of the anteromedial tibia in the area of the sarcoma resection. She seems to have a little bit of movement presence of the tibia. Fibula, however, appears intact. She has well-healed incisions from previous hardware placement, overall has good motion, alignment, stability of bilateral knees and ankles and hips. No real tenderness on weightbearing through an extended extremity or movement of her knee or ankle on the affected right side. She does have some abrasions to the legs, very superficial and certainly nothing affecting the areas of the incisions on the right leg of concern. Distal pulses and sensation are intact. IMAGING DATA: X-rays that I had obtained the right tibia and fibula show an intramedullary device in the tibia that compensates for the bone loss with a metal center and intramedullary devices, proximal and distal with locking screws in both areas that appear to be broken. There is some sign of movement about the intramedullary device, which I would refer to as "windshield wipering including basically showing chronic loosening of the device. Fibula is otherwise intact. There is no evidence of surrounding fracture or any violation of the cortical bone itself or any fracture of the intramedullary portion of the implants despite failure of the locking screws. ASSESSMENT: 1. History of previous sarcoma resection with bony erosions, intramedullary implant with broken interlocking screws, and some movement of the implants. 2. Intact fibula. TREATMENT PLAN: I discussed with the family the x-ray findings. Ultimately, I do not think her instability is that bad, that it would warrant revision of the hardware, especially given her stated lack of significant limitations. Ultimately, given that there is not an acute injury or fracture, I would continue to defer to Dr. Armenta's expertise since she is continuing to closely follow the patient along for her issues with her leg and certainly I think that follow is most important in terms of any dealing with potential other cancer, as apparently she subsequently underwent some treatment of a separate sarcoma, distal in the limb. That being said, I discussed that if she is having significant pain or instability that the risks and benefits of another procedure would have to be carefully weighed, but again I think would be most appropriate with treatment by Dr. Armenta and her staff, particularly given their ongoing follow and her extensive history. Family appreciated the evaluation. In the meantime, she can be weightbearing as tolerated with walker for assistance and again I think although I would be happy to see her as necessary, further followup with more appropriately be with Dr. Armenta in [facility]. PANKAJ MARIO MD DR: DULCE/mariana JOB#: [id number] / [id number]
[2018-06-30] MEDS ORDERED: AMOX1TAB58 PO (10:06)
[2018-06-30 11:00] VITALS: BP 111/68
[2018-06-30] MEDS: cefTRIAXone IV Push 1 GM VIAL. IVP SCH (11:40)
--- NOTE | 2018-06-30 12:00 | PDOC ---
Infectious Disease Note Subjective Subjective pt is feeling better - hungry but is confused today No gross F/C/S/n/V/SOA/rash ROS ROS o/w neg Vital Sign Vital Signs Vital Signs Date Time Temp Pulse Resp B/P (MAP) Pulse Ox O2 Delivery O2 Flow Rate FiO2 06/30/18 11:00 98.0 89 18 111/68 (82) 94 Nasal Cannula 2.0 98.0 Physical Exam PHYSICAL EXAM GENERAL: Sitting up in bed and eating. appears comfortable HEENT: Oral cavity pink and dry. Left periorbital bruising -better NECK: Supple. LUNGS: Clear to auscultation. HEART: S1, S2. ABDOMEN: Nondistended. Bowel sounds active, soft, nontender. EXTREMITIES: Multiple abrasions knees and feet R 2nd toe with ? tendon exposure SKIN: Warm without rash. NEUROLOGIC: Alert, recognizes her family, oriented to place, answers simple questions and follows commands. Labs Lab Laboratory Tests Test 06/29/18 17:11 06/29/18 20:55 06/30/18 08:16 Glucose (Fingerstick) 178 mg/dL (70-99) 210 mg/dL (70-99) 182 mg/dL (70-99) Micro Escherichia coli Greater than 100,000 colony forming units per mL Cefazolin <=4 ug/mL Cefazolin with an ANGELA <=16 predicts susceptibility to the oral agents cefaclor, cefdinir, cefpodoxime, cefprozil, cefuroxime, cephalexin, and loracarbef when used for therapy of uncomplicated urinary tract infections due to E. coli, Klebsiella pneumoniae, and Proteus mirabilis. ANTIMICROBIAL SUSCEPTIBILITY Final Comment S = Susceptible; I = Intermediate; R = Resistant P = Positive; N = Negative MICS are expressed in micrograms per mL Antibiotic RSLT#1 RSLT#2 RSLT#3 RSLT#4 Amoxicillin/Clavulanic Acid S =4 Ampicillin I =16 Cefepime S<=0.12 Ceftriaxone S<=0.25 Cefuroxime I =16 Ciprofloxacin R>=4 Ertapenem S<=0.12 Gentamicin S<=1 Imipenem S<=0.25 Levofloxacin R>=8 Meropenem S<=0.25 Nitrofurantoin S<=16 Piperacillin/Tazobactam S<=4 Tetracycline S =2 Tobramycin S<=1 Trimethoprim/Sulfa S<=20 Microbiology 06/26/18 Blood Culture - Preliminary, Resulted NO GROWTH AFTER 2 DAYS 06/26/18 Urine Culture - Preliminary, Resulted 06/26/18 Urine Culture Result 1 (ANGELA), Resulted Pending Objective Assessment Hypothermia - improved Lactic acidosis - improved Leukocytosis - improved Ecoli UTi - POA Mild left basilar atelectasis/infiltrate Multiple superficial wounds knees & feet s/p fall Displaced avulsion fracture medial base of 2nd digit proximal phalanx, right. ? exposed tendon s/p nail trimming Dementia COPD, O2 dependent CKD stage 3 HTN DM Hypothyroidism Plan Plan of Care Cont Rocephin for today Ortho eval - consult reviewed Family wanting d/c today so can go Prov place and can change to Augmentin to begin 07/01 for urine and superficial LE wounds/toe wounds Local wound care D/w son and daughter to monitor toe wound - looks clean D/w RN D/w SHAMEKA Potter MD Jun 30, 2018 12:00
== END 2018-06-30 16:17 | DRG 871 ==
LOC: ER 08:14 → 1 WEST ICU 10:09 → 5 NORTH 06-27 16:30
PROVIDERS: ADMIT Internal Medicine; ATTEND Internal Medicine
PROC: 0HBRXZZ Excision of Toe Nail, External Approach (ICD-10-PCS; principal; 2018-06-27)
PROC: 0HBRXZZ Excision of Toe Nail, External Approach (ICD-10-PCS; 2018-06-27)
PROC: 0HBRXZZ Excision of Toe Nail, External Approach (ICD-10-PCS; 2018-06-27)
PROC: 0HBRXZZ Excision of Toe Nail, External Approach (ICD-10-PCS; 2018-06-27)
PROC: 0HBRXZZ Excision of Toe Nail, External Approach (ICD-10-PCS; 2018-06-27)
PROC: 0HBRXZZ Excision of Toe Nail, External Approach (ICD-10-PCS; 2018-06-27)
PROC: 0HBRXZZ Excision of Toe Nail, External Approach (ICD-10-PCS; 2018-06-27)
PROC: 0HBRXZZ Excision of Toe Nail, External Approach (ICD-10-PCS; 2018-06-27)
PROC: 0HBRXZZ Excision of Toe Nail, External Approach (ICD-10-PCS; 2018-06-27)
PROC: 0HBRXZZ Excision of Toe Nail, External Approach (ICD-10-PCS; 2018-06-27)
DX: A41.9 Sepsis, unspecified organism (principal); G93.41 Metabolic encephalopathy; I13.0 Hypertensive heart and chronic kidney disease with heart failure and stage 1 through stage 4 chronic kidney disease, or unspecified chronic kidney disease; J98.11 Atelectasis; I50.32 Chronic diastolic (congestive) heart failure; N17.9 Acute kidney failure, unspecified; N39.0 Urinary tract infection, site not specified; B35.1 Tinea unguium; B96.20 Unspecified Escherichia coli [E. coli] as the cause of diseases classified elsewhere; D64.9 Anemia, unspecified; E03.9 Hypothyroidism, unspecified; E11.22 Type 2 diabetes mellitus with diabetic chronic kidney disease; E11.51 Type 2 diabetes mellitus with diabetic peripheral angiopathy without gangrene; E11.65 Type 2 diabetes mellitus with hyperglycemia; E78.5 Hyperlipidemia, unspecified; F03.90 Unspecified dementia, unspecified severity, without behavioral disturbance, psychotic disturbance, mood disturbance, and anxiety; J44.9 Chronic obstructive pulmonary disease, unspecified; L60.2 Onychogryphosis; L60.0 Ingrowing nail; Z96.653 Presence of artificial knee joint, bilateral; F32.9 Major depressive disorder, single episode, unspecified; M19.90 Unspecified osteoarthritis, unspecified site; S80.212A Abrasion, left knee, initial encounter; S80.211A Abrasion, right knee, initial encounter; W18.30XA Fall on same level, unspecified, initial encounter; B96.1 Klebsiella pneumoniae [K. pneumoniae] as the cause of diseases classified elsewhere; B96.4 Proteus (mirabilis) (morganii) as the cause of diseases classified elsewhere; S92.911A Unspecified fracture of right toe(s), initial encounter for closed fracture; N18.3 Chronic kidney disease, stage 3 (moderate); R65.20 Severe sepsis without septic shock; T68.XXXA Hypothermia, initial encounter; Z66 Do not resuscitate; Z82.49 Family history of ischemic heart disease and other diseases of the circulatory system; Z85.830 Personal history of malignant neoplasm of bone; Z86.73 Personal history of transient ischemic attack (TIA), and cerebral infarction without residual deficits; Z92.3 Personal history of irradiation; Z99.81 Dependence on supplemental oxygen; I25.2 Old myocardial infarction; Z79.82 Long term (current) use of aspirin; Z79.899 Other long term (current) drug therapy; Y93.89 Activity, other specified; Y92.89 Other specified places as the place of occurrence of the external cause; Y99.8 Other external cause status; Z79.84 Long term (current) use of oral hypoglycemic drugs
CPT/HCPCS: 36415; 51702; 70450; 71045; 73590; 73630; 80048; 80053; 81001; 82140; 82553; 82962; 83605; 83735; 83880; 84145; 84443; 84484; 85007; 85025; 85610; 87040; 87086; 87186; 87641; 90471; 90756; 93005; 96361; 96365; 96375; J0690; J0696; J1815; J2270; J7030; 97116; 97535; 99285-25; Q2035

== ENCOUNTER 2019-02-08 09:35 | Inpatient (IN) | payer MEDICARE ==
[~2019-02-08] VITALS: Ht 162.6 cm; Wt 84.4 kg
[2019-02-08] MEDS: IPRATRPIUM/ALBUTEROL 0.5/2.5MG 3 ML NEBU. NEB SCH ×2 (00:35→17:10)
[~2019-02-08 09:35] MED LIST changes: -AMLO10TA6 PO; +AMLO10TA8 PO; +AMOX1TAB58 PO; +CEPH-263 PO; +POTA20TA82 PO
[2019-02-08] MEDS ORDERED: IPRATRPIUM/ALBUTEROL 0.5/2.5MG 3 ML NEBU. NEB ONE (09:45)
[2019-02-08] MEDS ORDERED: methylPREDNISolone SOD SUCC PF 125 MG/2 ML VIAL. IV ONE (09:45)
[2019-02-08] MEDS ORDERED: IV NORMAL SALINE 1000ML BAG 1,000 ML IV SCH (09:45)
[2019-02-08] MEDS ORDERED: ACETAMINOPHEN 325 MG TABLET. PO ONE (09:45)
[2019-02-08 09:55] LABS: BASE EXCESS ABG 4 mmol/L (-3-3); HCO3 ABG 30 mmol/L (21-28); PCO2 ABG 53 mmHg (35-46); PO2 ABG 61 mmHg (65-108); SAT O2 ABG 91 % (92-99)
[2019-02-08 09:56] LABS: FIO2 ABG 32
[2019-02-08 10:08] LABS: BASO % 0 % (0-3); EOS % 0 % (0-3); HEMATOCRIT 35.8 % (36.0-47.0); HEMOGLOBIN 11.4 g/dL (12.0-15.5); LYMPH # 0.5 x10^3/uL (1.0-4.8); LYMPH % 4 % (24-48); MEAN CORPUSCULAR HEMOGLOBIN 30 pg (25-35); MEAN CORPUSCULAR HGB CONC 32 g/dL (31-37); MEAN CORPUSCULAR VOLUME 95 fL (79-100); MONO # 0.6 x10^3/uL (0.0-1.1); MONO % 5 % (0-9); NEUT % 91 % (31-73); PLATELET COUNT 198 x10^3/uL (140-400); RED BLOOD COUNT 3.78 x10^6/uL (3.50-5.40); RED CELL DISTRIBUTION WIDTH 15.5 % (11.5-14.5); WHITE BLOOD COUNT 13.2 x10^3/uL (4.0-11.0)
[2019-02-08] MEDS ORDERED: cefTRIAXone IV Push 1 GM VIAL. IVP ONE (10:15)
[2019-02-08] MEDS ORDERED: ACETAMINOPHEN 500 MG TABLET PO ONE (10:15)
--- NOTE | 2019-02-08 10:21 | PHYS DOC ---
Past Medical History Past Medical History: Cancer, CHF, COPD, SC, Other Additional Past Medical Histor: BONE CANCER - PT POOR HISTORIAN Past Surgical History: Other Additional Past Surgical Histo: R LOWER LEG Alcohol Use: None Drug Use: None Adult General Chief Complaint Chief Complaint: SHORTNESS OF BREATH HPI HPI Patient is a 88 year old female who brought in by EMS because of shortness of breath and cough. Patient has history of CHF and COPD on 2 L of home oxygen and lives at home with caregivers. Patient complaining of shortness of breath and cough for 5 days and today was not able to get out of the bed because of generalized weakness. Patient was off of oxygen this morning and had O2 sat of 76% and was put on 3 L of oxygen with improvement of O2 sat to 91%. Patient was started on nonrebreather by fire equipment inspector prior to arrival of EMS. She had moderate respiratory distress at arrival to ER with temperature of 100 and denied productive cough and chest pain and sick contact. Review of Systems Review of Systems Constitutional: Denies fever or chills [] Eyes: Denies change in visual acuity, redness, or eye pain [] HENT: Denies nasal congestion or sore throat [] Respiratory: Reports cough and shortness of breath Cardiovascular: No additional information not addressed in HPI [] GI: Denies abdominal pain, nausea, vomiting, bloody stools or diarrhea [] : Denies dysuria or hematuria [] Musculoskeletal: Denies back pain or joint pain [] Integument: Denies rash or skin lesions [] Neurologic: Denies headache, focal weakness or sensory changes [] Endocrine: Denies polyuria or polydipsia [] All other systems were reviewed and found to be within normal limits, except as documented in this note. Current Medications Current Medications Current Medications Medications (Trade) Dose Ordered Sig/Robe Start Time Stop Time Status Last Admin Dose Admin Acetaminophen (Tylenol) 1,000 mg 1X ONCE 02/08/19 09:45 02/08/19 09:49 DC Albuterol/ Ipratropium (Duoneb) 3 ml 1X ONCE 02/08/19 09:45 02/08/19 09:49 DC 02/08/19 09:45 3 ML Methylprednisolone Sodium Succinate (SOLU-Medrol 125MG VIAL) 125 mg 1X ONCE 02/08/19 09:45 02/08/19 09:49 DC 02/08/19 10:15 125 MG Sodium Chloride 1,000 ml @ 1,000 mls/hr Q1H 02/08/19 09:45 02/08/19 10:44 DC 02/08/19 10:15 1,000 MLS/HR Allergies Allergies Allergies Coded Allergies Type Severity Reaction Last Updated Verified No Known Drug Allergies 11/14/16 No Physical Exam Physical Exam Constitutional: Well nourished, moderate distress, non-toxic appearance, temperature of 100. [] HENT: Normocephalic, atraumatic, oropharynx moist. Eyes: PERRLA, EOMI, conjunctiva normal, no discharge. [] Neck: Normal range of motion, no tenderness, supple, no stridor. [] Cardiovascular:Heart rate regular rhythm, no murmur [] Lungs & Thorax: Moderate respiratory distress with audible wheezing and rhonchi and intercostal retraction and intercostal retraction Abdomen: Bowel sounds normal, soft, no tenderness, no masses, no pulsatile masses. [] Skin: Warm, dry, no erythema, no rash. [] Back: No tenderness, no CVA tenderness. [] Extremities: No tenderness, no cyanosis, no clubbing, ROM intact, no edema. Several skin graft and scar of upper and lower extremities. [] Neurologic: Alert and oriented X 3, normal motor function, normal sensory function, no focal deficits noted. [] Current Patient Data Vital Signs Vital Signs Date Time Temp Pulse Resp B/P (MAP) Pulse Ox O2 Delivery O2 Flow Rate FiO2 02/08/19 10:00 94 26 151/65 (93) 92 Nasal Cannula 3.0 02/08/19 09:35 100.0 100.0 Lab Values Laboratory Tests Test 02/08/19 09:45 White Blood Count 13.2 x10^3/uL (4.0-11.0) H Red Blood Count 3.78 x10^6/uL (3.50-5.40) Hemoglobin 11.4 g/dL (12.0-15.5) L Hematocrit 35.8 % (36.0-47.0) L Mean Corpuscular Volume 95 fL (79-100) Mean Corpuscular Hemoglobin 30 pg (25-35) Mean Corpuscular Hemoglobin Concent 32 g/dL (31-37) Red Cell Distribution Width 15.5 % (11.5-14.5) H Platelet Count 198 x10^3/uL (140-400) Neutrophils (%) (Auto) 91 % (31-73) H Lymphocytes (%) (Auto) 4 % (24-48) L Monocytes (%) (Auto) 5 % (0-9) Eosinophils (%) (Auto) 0 % (0-3) Basophils (%) (Auto) 0 % (0-3) Neutrophils # (Auto) 12.0 x10^3uL (1.8-7.7) H Lymphocytes # (Auto) 0.5 x10^3/uL (1.0-4.8) L Monocytes # (Auto) 0.6 x10^3/uL (0.0-1.1) Eosinophils # (Auto) 0.0 x10^3/uL (0.0-0.7) Basophils # (Auto) 0.0 x10^3/uL (0.0-0.2) Segmented Neutrophils % 76 % (35-66) H Band Neutrophils % 15 % (0-9) H Lymphocytes % 2 % (24-48) L Monocytes % 5 % (0-10) Eosinophils % 1 % (0-5) Basophils % 1 % (0-3) Platelet Estimate Adequate (ADEQUATE) O2 Saturation 91 % (92-99) L Arterial Blood pH 7.38 (7.35-7.45) Arterial Blood pCO2 at Patient Temp 53 mmHg (35-46) H Arterial Blood pO2 at Patient Temp 61 mmHg (65-108) L Arterial Blood HCO3 30 mmol/L (21-28) H Arterial Blood Base Excess 4 mmol/L (-3-3) H FiO2 32 Sodium Level 141 mmol/L (136-145) Potassium Level 4.7 mmol/L (3.5-5.1) Chloride Level 101 mmol/L (98-107) Carbon Dioxide Level 34 mmol/L (21-32) H Anion Gap 6 (6-14) Blood Urea Nitrogen 20 mg/dL (7-20) Creatinine 1.4 mg/dL (0.6-1.0) H Estimated GFR (Cockcroft-Gault) 35.4 BUN/Creatinine Ratio 14 (6-20) Glucose Level 182 mg/dL (70-99) H Lactic Acid Level 1.1 mmol/L (0.4-2.0) Calcium Level 9.3 mg/dL (8.5-10.1) Magnesium Level 1.8 mg/dL (1.8-2.4) Total Bilirubin 0.6 mg/dL (0.2-1.0) Aspartate Amino Transferase (AST) 28 U/L (15-37) Alanine Aminotransferase (ALT) 21 U/L (14-59) Alkaline Phosphatase 134 U/L (46-116) H Creatine Kinase 76 U/L (26-192) Troponin I Quantitative < 0.017 ng/mL (0.000-0.055) CO-Qmq-X-Type Natriuretic Peptide 1543 pg/mL (0-449) H Total Protein 7.0 g/dL (6.4-8.2) Albumin 3.2 g/dL (3.4-5.0) L Albumin/Globulin Ratio 0.8 (1.0-1.7) L Laboratory Tests 02/08/19 09:45 Laboratory Tests 02/08/19 09:45 EKG EKG EKG interpreted by me. EKG at 0 941 showed normal sinus rhythm at rate of 98, left fourth axis, poor R-wave progress in anteroseptal leads, no acute ST and T- wave abnormalities. Radiology/Procedures Radiology/Procedures [facility] [address] [place] [address] IMAGING REPORT Signed PATIENT: CAROLINA MARSH ACCOUNT: [id number] : 1930 LOCATION: [facility] AGE: 88 SEX: F EXAM STATUS: ADM IN ORD. PHYSICIAN: NIC REBOLLEDO MD REASON: shortness of breath PROCEDURE: PORTABLE CHEST 1V AP portable chest radiograph 02/08/2019 Clinical History: Shortness of breath. Two AP erect portable digital radiographs of the chest were obtained. Comparison study is dated 06/26/2018. The cardiac silhouette is mildly enlarged. The thoracic aorta is tortuous. Atherosclerotic calcification of the thoracic aorta is seen. The cardiac silhouette is mildly enlarged. Atherosclerotic calcification of the thoracic aorta is seen. The thoracic aorta is mildly tortuous. Mild elevation of the right hemidiaphragm is seen. Left lower lobe atelectasis and/or infiltrate is noted. There is a small left pleural effusion. Degenerative changes are seen involving the thoracic spine and both shoulders. There is diffuse osteopenia of the visualized bony structures. IMPRESSION: Left lower lobe atelectasis and/or infiltrate with small left pleural effusion. Electronically signed by: Adilson Bahena MD (02/08/2019 10:55 AM) [facility] DICTATED and SIGNED BY: ADILSON BAHENA MD DATE: 02/08/19 1059 Course & Med Decision Making Course & Med Decision Making Pertinent Labs and Imaging studies reviewed. (See chart for details) Evaluation of patient in ER showed 88-year-old female patient brought in by EMS because of shortness of breath and hypoxia. Patient has history of CHF and PT on home oxygen. Patient did not have lactic acidemia or tachycardia. Patient had infiltration in the left lung. Patient treated with IV fluids, Solu-Medrol, DuoNeb and antibiotic. Patient requiring admission for further evaluation and treatment. Discussed with Dr. Escamilla who is in agreement with admission. Discussed findings and plan with patient and family, who acknowledge understanding and agreement. Dragon Disclaimer Dragon Disclaimer This electronic medical record was generated, in whole or in part, using a voice recognition dictation system. Departure Departure Impression: Primary Impression: Acute respiratory distress Additional Impressions: Fever Heart failure COPD exacerbation Renal insufficiency Anemia CAP (community acquired pneumonia) Pleural effusion Disposition: 09 ADMITTED INPATIENT (at 1040) Admitting Physician: Mirta Escamilla (accepted admission at 1039) Condition: GUARDED Referrals: DOROTEO CISNEROS MD (PCP) Critical Care Time Critical care time was 55 minutes exclusive of procedures. Problem Qualifiers Additional Impressions: Fever Fever type: unspecified Qualified Codes: R50.9 - Fever, unspecified Heart failure Heart failure type: unspecified Heart failure chronicity: unspecified Q ualified Codes: I50.9 - Heart failure, unspecified Anemia Anemia type: unspecified type Qualified Codes: D64.9 - Anemia, unspecified CAP (community acquired pneumonia) Laterality: left Lung location: lower lobe of lung Qualified Codes: J18.1 - Lobar pneumonia, unspecified organism NIC REBOLLEDO MD February 08, 2019 10:21
[2019-02-08 10:25] LABS: CALCIUM 9.3 mg/dL (8.5-10.1); CREATININE 1.4 mg/dL (0.6-1.0); GFR 35.4; POTASSIUM 4.7 mmol/L (3.5-5.1)
[2019-02-08 10:38] LABS: ALBUMIN 3.2 g/dL (3.4-5.0); ALBUMIN/GLOBULIN RATIO 0.8 (1.0-1.7); TOTAL BILIRUBIN 0.6 mg/dL (0.2-1.0)
[2019-02-08 10:46] LABS: INFLUENZA A PATIENT NEGATIVE (NEGATIVE); INFLUENZA B PATIENT NEGATIVE (NEGATIVE)
--- NOTE | 2019-02-08 10:58 | RAD ---
AP portable chest radiograph 02/08/2019 Clinical History: Shortness of breath. Two AP erect portable digital radiographs of the chest were obtained. Comparison study is dated 06/26/2018. The cardiac silhouette is mildly enlarged. The thoracic aorta is tortuous. Atherosclerotic calcification of the thoracic aorta is seen. The cardiac silhouette is mildly enlarged. Atherosclerotic calcification of the thoracic aorta is seen. The thoracic aorta is mildly tortuous. Mild elevation of the right hemidiaphragm is seen. Left lower lobe atelectasis and/or infiltrate is noted. There is a small left pleural effusion. Degenerative changes are seen involving the thoracic spine and both shoulders. There is diffuse osteopenia of the visualized bony structures. IMPRESSION: Left lower lobe atelectasis and/or infiltrate with small left pleural effusion. Electronically signed by: Adilson Bahena MD (02/08/2019 10:55 AM) [facility]
--- NOTE | 2019-02-08 12:33 | EKG ---
[facility] [address] [place] [address] Test Date: 2019-02-08 Test Time: 09:41:16 Pat Name: CAROLINA MARSH Department: Room: Gender: F [employer] Eng[employer] Partner: : [phone] Requested By: NIC REBOLLEDO Order Number: [id number] Reading MD: Measurements Intervals [place] Rate: 97 P: 60 [place]: 178 QRS: -12 QRSD: 118 T: 98 QT: 370 QTc: 474 Interpretive Statements SINUS RHYTHM LEFTWARD AXIS QRS(T) CONTOUR ABNORMALITY CANNOT RULE OUT INFERIOR MYOCARDIAL DAMAGE T ABNORMALITY IN HIGH LATERAL LEADS PROLONGED QT ABNORMAL ECG No previous ECG available for comparison
[2019-02-08] MEDS ORDERED: FLUT9.9S NS (13:18)
[2019-02-08] MEDS ORDERED: GLIP5TAB22 PO (13:18)
[2019-02-08] MEDS ORDERED: ASPI-612 PO (13:18)
[2019-02-08 13:40] LABS: % BANDS 15 % (0-9); % BASOS 1 % (0-3); % EOS 1 % (0-5); % LYMPHS 2 % (24-48); % MONOS 5 % (0-10); % SEGS 76 % (35-66); PLT ESTIMATE ADEQUATE (ADEQUATE)
[2019-02-08 15:00] VITALS: BP 123/65
--- NOTE | 2019-02-08 15:25 | PDOC1 ---
History and Physical Date of Admission Date of Admission DATE: 02/08/19 TIME: 15:19 Identification/Chief Complaint Chief Complaint cough, dyspnea Source Source: Chart review, Patient History of Present Illness History of Present Illness Ms. Ventura is a 88 year old female admit from ER with worsneing shortness of breath and cough. Patient has history of CHF and COPD on 2 L of home oxygen oxygen was out at home, and marked hypoxia when EMS arrived Patient complaining of shortness of breath and cough for 5 days and today was not able to get out of the bed because of generalized weakness Past Medical History Cardiovascular: CHF, HTN CENTRAL NERVOUS SYSTEM: Dementia GI: No pertinent hx Heme/Onc: Cancer Hepatobiliary: No pertinent hx Psych: No pertinent hx Musculoskeletal: Osteoarthritis Rheumatologic: Gout Renal/: Chronic renal insuff Endocrine: Diabetes Past Surgical History Past Surgical History: Hernia Repair, Total knee replacement, Other Family History Family History: Heart Disease, Hypertension Social History ALCOHOL: none Drugs: None Current Problem List Problem List Problems Medical Problems: (1) Acute respiratory distress Status: Acute (2) Anemia Status: Acute (3) CAP (community acquired pneumonia) Status: Acute (4) COPD exacerbation Status: Acute (5) Fever Status: Acute (6) Heart failure Status: Acute (7) Pleural effusion Status: Acute (8) Renal insufficiency Status: Acute Current Medications Current Medications Current Medications Sodium Chloride 1,000 ml @ 1,000 mls/hr Q1H IV Last administered on 02/08/19at 10:15; Start 02/08/19 at 09:45; Stop 02/08/19 at 10:44; Status DC Albuterol/ Ipratropium (Duoneb) 3 ml 1X ONCE NEB Last administered on 02/08/19at 09:45; Start 02/08/19 at 09:45; Stop 02/08/19 at 09:49; Status DC Methylprednisolone Sodium Succinate (SOLU-Medrol 125MG VIAL) 125 mg 1X ONCE IV Last administered on 02/08/19at 10:15; Start 02/08/19 at 09:45; Stop 02/08/19 at 09:49; Status DC Acetaminophen (Tylenol) 1,000 mg 1X ONCE PO ; Start 02/08/19 at 09:45; Stop 02/08/19 at 09:49; Status DC Acetaminophen (Tylenol) 1,000 mg 1X ONCE PO Last administered on 02/08/19at 10:15; Start 02/08/19 at 10:15; Stop 02/08/19 at 10:16; Status DC Ceftriaxone Sodium (Rocephin) 1 gm 1X ONCE IVP Last administered on 02/08/19at 10:50; Start 02/08/19 at 10:15; Stop 02/08/19 at 10:18; Status DC Prednisone (Prednisone) 40 mg DAILY PO ; Start 02/09/19 at 09:00 Albuterol/ Ipratropium (Duoneb) 3 ml Q4HRS W/A NEB ; Start 02/08/19 at 18:00 Allopurinol (Zyloprim) 300 mg DAILY PO ; Start 02/08/19 at 16:00 Amlodipine Besylate (Norvasc) 10 mg DAILY PO ; Start 02/08/19 at 16:00 Aspirin (Ecotrin) 81 mg HS PO ; Start 02/08/19 at 21:00 Duloxetine HCl (Cymbalta) 30 mg HS PO ; Start 02/08/19 at 21:00 Furosemide (Lasix) 40 mg DAILY PO ; Start 02/08/19 at 16:00 Levothyroxine Sodium (Synthroid) 100 mcg DAILY07 PO ; Start 02/08/19 at 16:00 Donepezil HCl (Aricept) 10 mg DAILY PO ; Start 02/08/19 at 16:00 Lisinopril (Prinivil) 20 mg BID PO ; Start 02/08/19 at 21:00 Fluticasone Propionate (Flonase) 2 spray DAILY NS ; Start 02/09/19 at 09:00 Glipizide (Glucotrol Er) 5 mg DAILY08 PO ; Start 02/09/19 at 08:00 Memantine (Namenda) 5 mg BID PO ; Start 02/08/19 at 21:00 Potassium Chloride (Klor-Con) 10 meq DAILYWBKFT PO ; Start 02/09/19 at 08:00 Carvedilol (Coreg) 6.25 mg BIDWMEALS PO ; Start 02/08/19 at 17:00 Active Scripts Active Reported Flonase Allergy Relief (Fluticasone Propionate) 9.9 Ml [place].susp 2 Sprays NS DAILY Aspirin Ec (Aspirin) 81 Mg Tablet.dr 1 Tab PO DAILYWSUP Glipizide Er (Glipizide) 5 Mg Tab.er.24 1 Tab PO DAILY Potassium Chloride 20 Meq Tablet.er 40 Meq PO DAILY Amlodipine Besylate 10 Mg Tablet 10 Mg PO DAILY Namenda (Memantine Hcl) 10 Mg Tablet 5 Mg PO BID Synthroid (Levothyroxine Sodium) 100 Mcg Tablet 100 Mcg PO DAILY Lasix (Furosemide) 40 Mg Tablet 40 Mg PO DAILY Vasotec (Enalapril Maleate) 20 Mg Tablet 20 Mg PO BID Cymbalta (Duloxetine Hcl) 30 Mg Capsule.dr 30 Mg PO HS Aricept (Donepezil Hcl) 10 Mg Tablet 10 Mg PO DAILY Carvedilol 25 Mg Tablet 25 Mg PO BIDWMEALS Aspir 81 (Aspirin) 81 Mg Tablet.dr 81 Mg PO HS Allopurinol 300 Mg Tablet 300 Mg PO DAILY Allergies Allergies: Coded Allergies: No Known Drug Allergies (Unverified , 11/14/16) ROS General: No: Chills, Night Sweats, Fatigue, Malaise, Appetite, Other PSYCHOLOGICAL ROS: No: Anxiety, Behavioral Disorder, Concentration difficultie, Decreased libido, Depression, Disorientation, Hallucinations, Hostility, Irritablity, Memory difficulties, Mood Swings, Obsessive thoughts, Physical abuse, Sexual abuse, Sleep disturbances, Suicidal ideation, Other Eyes: No Blurry vision, No Decreased vision, No Double vision, No Dry eyes, No Excessive tearing, No Eye Pain, No Itchy Eyes, No Loss of vision, No Photophobia, No Scotomata, No Uses contacts, No Uses glasses, No Other HEENT: No: Heacaches, Visual Changes, Hearing change, Nasal congestion, Nasal discharge, Oral lesions, Sinus pain, Sore Throat, Epistaxis, Sneezing, Snoring, Tinnitus, Vertigo, Vocal changes, Other Respiratory: No: Cough, Hemoptysis, Orthopnea, Pleuritic Pain, Shortness of breath, SOB with excertion, Sputum Changes, Stridor, Tachypnea, Wheezing, Other Cardiovascular: No Chest Pain, No Palpitations, No Orthopnea, No Paroxysmal Noc. Dyspnea, No Edema, No Lt Headedness, No Other Gastrointestinal: No Nausea, No Vomiting, No Abdominal Pain, No Diarrhea, No Constipation, No Melena, No Hematochezia, No Other Genitourinary: No Dysuria, No Frequency, No Incontinence, No Hematuria, No Retention, No Discharge, No Urgency, No Pain, No Flank Pain, No Other, No , No , No , No , No , No , No Musculoskeletal: No Gait Disturbance, No Joint Pain, No Joint Stiffness, No Joint Swelling, No Muscle Pain, No Muscular Weakness, No Pain In:, No Swelling In:, No Other Neurological: No Behavorial Changes, No Bowel/Bladder ControlChng, No Confusion, No Dizziness, No Gait Disturbance, No Headaches, No Impaired Coord/balance, No Memory Loss, No Numbness/Tingling, No Seizures, No Speech Problems, No Tremors, No Visual Changes, No Weakness, No Other Skin: Yes Dry Skin; No Eczema, No Hair Changes, No Lumps, No Mole Changes, No Mottling, No Nail Changes, No Pruritus, No Rash, No Skin Lesion Changes, No Other, No Acne Physical Exam General: Alert, Cooperative, No acute distress, mild distress, Other (not oriented, ) HEENT: PERRLA, EOMI, Mucous membr. moist/pink Lungs: Other (low vol, rales, coarse, ) Heart: S1S2, no gallops, no murmurs Abdomen: Normal bowel sounds, Soft Extremities: No clubbing, No cyanosis, No edema, Normal pulses Skin: No rashes, No breakdown Neuro: Normal tone, Sensation intact Psych/Mental Status: Other (lethargy, ) Vitals Vitals Vital Signs Date Time Temp Pulse Resp B/P (MAP) Pulse Ox O2 Delivery O2 Flow Rate FiO2 02/08/19 10:30 94 21 120/57 (78) 92 Nasal Cannula 3.0 02/08/19 09:35 100.0 100.0 Labs Labs Laboratory Tests Test 02/08/19 09:45 02/08/19 10:15 White Blood Count 13.2 x10^3/uL (4.0-11.0) Red Blood Count 3.78 x10^6/uL (3.50-5.40) Hemoglobin 11.4 g/dL (12.0-15.5) Hematocrit 35.8 % (36.0-47.0) Mean Corpuscular Volume 95 fL (79-100) Mean Corpuscular Hemoglobin 30 pg (25-35) Mean Corpuscular Hemoglobin Concent 32 g/dL (31-37) Red Cell Distribution Width 15.5 % (11.5-14.5) Platelet Count 198 x10^3/uL (140-400) Neutrophils (%) (Auto) 91 % (31-73) Lymphocytes (%) (Auto) 4 % (24-48) Monocytes (%) (Auto) 5 % (0-9) Eosinophils (%) (Auto) 0 % (0-3) Basophils (%) (Auto) 0 % (0-3) Neutrophils # (Auto) 12.0 x10^3uL (1.8-7.7) Lymphocytes # (Auto) 0.5 x10^3/uL (1.0-4.8) Monocytes # (Auto) 0.6 x10^3/uL (0.0-1.1) Eosinophils # (Auto) 0.0 x10^3/uL (0.0-0.7) Basophils # (Auto) 0.0 x10^3/uL (0.0-0.2) Segmented Neutrophils % 76 % (35-66) Band Neutrophils % 15 % (0-9) Lymphocytes % 2 % (24-48) Monocytes % 5 % (0-10) Eosinophils % 1 % (0-5) Basophils % 1 % (0-3) Platelet Estimate Adequate (ADEQUATE) O2 Saturation 91 % (92-99) Arterial Blood pH 7.38 (7.35-7.45) Arterial Blood pCO2 at Patient Temp 53 mmHg (35-46) Arterial Blood pO2 at Patient Temp 61 mmHg (65-108) Arterial Blood HCO3 30 mmol/L (21-28) Arterial Blood Base Excess 4 mmol/L (-3-3) FiO2 32 Sodium Level 141 mmol/L (136-145) Potassium Level 4.7 mmol/L (3.5-5.1) Chloride Level 101 mmol/L (98-107) Carbon Dioxide Level 34 mmol/L (21-32) Anion Gap 6 (6-14) Blood Urea Nitrogen 20 mg/dL (7-20) Creatinine 1.4 mg/dL (0.6-1.0) Estimated GFR (Cockcroft-Gault) 35.4 BUN/Creatinine Ratio 14 (6-20) Glucose Level 182 mg/dL (70-99) Lactic Acid Level 1.1 mmol/L (0.4-2.0) Calcium Level 9.3 mg/dL (8.5-10.1) Magnesium Level 1.8 mg/dL (1.8-2.4) Total Bilirubin 0.6 mg/dL (0.2-1.0) Aspartate Amino Transf (AST/SGOT) 28 U/L (15-37) Alanine Aminotransferase (ALT/SGPT) 21 U/L (14-59) Alkaline Phosphatase 134 U/L (46-116) Creatine Kinase 76 U/L (26-192) Troponin I Quantitative < 0.017 ng/mL (0.000-0.055) YF-Gxw-M-Type Natriuretic Peptide 1543 pg/mL (0-449) Total Protein 7.0 g/dL (6.4-8.2) Albumin 3.2 g/dL (3.4-5.0) Albumin/Globulin Ratio 0.8 (1.0-1.7) Influenza Type A Antigen Negative (NEGATIVE) Influenza Type B Antigen Negative (NEGATIVE) Laboratory Tests Test 02/08/19 09:45 02/08/19 10:15 White Blood Count 13.2 x10^3/uL (4.0-11.0) Red Blood Count 3.78 x10^6/uL (3.50-5.40) Hemoglobin 11.4 g/dL (12.0-15.5) Hematocrit 35.8 % (36.0-47.0) Mean Corpuscular Volume 95 fL (79-100) Mean Corpuscular Hemoglobin 30 pg (25-35) Mean Corpuscular Hemoglobin Concent 32 g/dL (31-37) Red Cell Distribution Width 15.5 % (11.5-14.5) Platelet Count 198 x10^3/uL (140-400) Neutrophils (%) (Auto) 91 % (31-73) Lymphocytes (%) (Auto) 4 % (24-48) Monocytes (%) (Auto) 5 % (0-9) Eosinophils (%) (Auto) 0 % (0-3) Basophils (%) (Auto) 0 % (0-3) Neutrophils # (Auto) 12.0 x10^3uL (1.8-7.7) Lymphocytes # (Auto) 0.5 x10^3/uL (1.0-4.8) Monocytes # (Auto) 0.6 x10^3/uL (0.0-1.1) Eosinophils # (Auto) 0.0 x10^3/uL (0.0-0.7) Basophils # (Auto) 0.0 x10^3/uL (0.0-0.2) Segmented Neutrophils % 76 % (35-66) Band Neutrophils % 15 % (0-9) Lymphocytes % 2 % (24-48) Monocytes % 5 % (0-10) Eosinophils % 1 % (0-5) Basophils % 1 % (0-3) Platelet Estimate Adequate (ADEQUATE) O2 Saturation 91 % (92-99) Arterial Blood pH 7.38 (7.35-7.45) Arterial Blood pCO2 at Patient Temp 53 mmHg (35-46) Arterial Blood pO2 at Patient Temp 61 mmHg (65-108) Arterial Blood HCO3 30 mmol/L (21-28) Arterial Blood Base Excess 4 mmol/L (-3-3) FiO2 32 Sodium Level 141 mmol/L (136-145) Potassium Level 4.7 mmol/L (3.5-5.1) Chloride Level 101 mmol/L (98-107) Carbon Dioxide Level 34 mmol/L (21-32) Anion Gap 6 (6-14) Blood Urea Nitrogen 20 mg/dL (7-20) Creatinine 1.4 mg/dL (0.6-1.0) Estimated GFR (Cockcroft-Gault) 35.4 BUN/Creatinine Ratio 14 (6-20) Glucose Level 182 mg/dL (70-99) Lactic Acid Level 1.1 mmol/L (0.4-2.0) Calcium Level 9.3 mg/dL (8.5-10.1) Magnesium Level 1.8 mg/dL (1.8-2.4) Total Bilirubin 0.6 mg/dL (0.2-1.0) Aspartate Amino Transf (AST/SGOT) 28 U/L (15-37) Alanine Aminotransferase (ALT/SGPT) 21 U/L (14-59) Alkaline Phosphatase 134 U/L (46-116) Creatine Kinase 76 U/L (26-192) Troponin I Quantitative < 0.017 ng/mL (0.000-0.055) DQ-Hld-G-Type Natriuretic Peptide 1543 pg/mL (0-449) Total Protein 7.0 g/dL (6.4-8.2) Albumin 3.2 g/dL (3.4-5.0) Albumin/Globulin Ratio 0.8 (1.0-1.7) Influenza Type A Antigen Negative (NEGATIVE) Influenza Type B Antigen Negative (NEGATIVE) VTE Prophylaxis Ordered VTE Prophylaxis Devices: Contraindicated VTE Pharmacological Prophylaxi: Yes Assessment/Plan Assessment/Plan cough, dyspnea, bronchitis COPD, acute exacerbation dementia obesity, BMI 32 hypothyroid, CHF, 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
[2019-02-08] MEDS: LEVOTHYROXINE 100 MCG TABLET PO SCH (15:42)
[2019-02-08] MEDS: FUROSEMIDE 40 MG TABLET. PO SCH (15:42)
[2019-02-08] MEDS: amLODIPine BESYLATE 10 MG TABLET PO SCH (15:42)
[2019-02-08] MEDS: DONEPEZIL HCL 10 MG TABLET. PO SCH (15:42)
[2019-02-08] MEDS: ALLOPURINOL 300 MG TABLET. PO SCH (15:43)
[2019-02-08] MEDS: CARVEDILOL 6.25 MG TABLET. PO SCH (17:00)
--- NOTE | 2019-02-08 18:19 | PDOC ---
PULMONARY PROGRESS NOTES Vitals Vital Signs Date Time Temp Pulse Resp B/P (MAP) Pulse Ox O2 Delivery O2 Flow Rate FiO2 02/08/19 17:09 95 Nasal Cannula 3.0 02/08/19 15:42 94 120/57 02/08/19 15:00 99.1 16 99.1 Lungs: Clear Labs Laboratory Tests Test 02/08/19 09:45 02/08/19 10:15 02/08/19 17:31 White Blood Count 13.2 x10^3/uL (4.0-11.0) Red Blood Count 3.78 x10^6/uL (3.50-5.40) Hemoglobin 11.4 g/dL (12.0-15.5) Hematocrit 35.8 % (36.0-47.0) Mean Corpuscular Volume 95 fL (79-100) Mean Corpuscular Hemoglobin 30 pg (25-35) Mean Corpuscular Hemoglobin Concent 32 g/dL (31-37) Red Cell Distribution Width 15.5 % (11.5-14.5) Platelet Count 198 x10^3/uL (140-400) Neutrophils (%) (Auto) 91 % (31-73) Lymphocytes (%) (Auto) 4 % (24-48) Monocytes (%) (Auto) 5 % (0-9) Eosinophils (%) (Auto) 0 % (0-3) Basophils (%) (Auto) 0 % (0-3) Neutrophils # (Auto) 12.0 x10^3uL (1.8-7.7) Lymphocytes # (Auto) 0.5 x10^3/uL (1.0-4.8) Monocytes # (Auto) 0.6 x10^3/uL (0.0-1.1) Eosinophils # (Auto) 0.0 x10^3/uL (0.0-0.7) Basophils # (Auto) 0.0 x10^3/uL (0.0-0.2) Segmented Neutrophils % 76 % (35-66) Band Neutrophils % 15 % (0-9) Lymphocytes % 2 % (24-48) Monocytes % 5 % (0-10) Eosinophils % 1 % (0-5) Basophils % 1 % (0-3) Platelet Estimate Adequate (ADEQUATE) O2 Saturation 91 % (92-99) Arterial Blood pH 7.38 (7.35-7.45) Arterial Blood pCO2 at Patient Temp 53 mmHg (35-46) Arterial Blood pO2 at Patient Temp 61 mmHg (65-108) Arterial Blood HCO3 30 mmol/L (21-28) Arterial Blood Base Excess 4 mmol/L (-3-3) FiO2 32 Sodium Level 141 mmol/L (136-145) Potassium Level 4.7 mmol/L (3.5-5.1) Chloride Level 101 mmol/L (98-107) Carbon Dioxide Level 34 mmol/L (21-32) Anion Gap 6 (6-14) Blood Urea Nitrogen 20 mg/dL (7-20) Creatinine 1.4 mg/dL (0.6-1.0) Estimated GFR (Cockcroft-Gault) 35.4 BUN/Creatinine Ratio 14 (6-20) Glucose Level 182 mg/dL (70-99) Lactic Acid Level 1.1 mmol/L (0.4-2.0) Calcium Level 9.3 mg/dL (8.5-10.1) Magnesium Level 1.8 mg/dL (1.8-2.4) Total Bilirubin 0.6 mg/dL (0.2-1.0) Aspartate Amino Transf (AST/SGOT) 28 U/L (15-37) Alanine Aminotransferase (ALT/SGPT) 21 U/L (14-59) Alkaline Phosphatase 134 U/L (46-116) Creatine Kinase 76 U/L (26-192) Troponin I Quantitative < 0.017 ng/mL (0.000-0.055) VE-Wqb-W-Type Natriuretic Peptide 1543 pg/mL (0-449) Total Protein 7.0 g/dL (6.4-8.2) Albumin 3.2 g/dL (3.4-5.0) Albumin/Globulin Ratio 0.8 (1.0-1.7) Influenza Type A Antigen Negative (NEGATIVE) Influenza Type B Antigen Negative (NEGATIVE) Glucose (Fingerstick) 246 mg/dL (70-99) Laboratory Tests Test 02/08/19 09:45 02/08/19 10:15 02/08/19 17:31 White Blood Count 13.2 x10^3/uL (4.0-11.0) Red Blood Count 3.78 x10^6/uL (3.50-5.40) Hemoglobin 11.4 g/dL (12.0-15.5) Hematocrit 35.8 % (36.0-47.0) Mean Corpuscular Volume 95 fL (79-100) Mean Corpuscular Hemoglobin 30 pg (25-35) Mean Corpuscular Hemoglobin Concent 32 g/dL (31-37) Red Cell Distribution Width 15.5 % (11.5-14.5) Platelet Count 198 x10^3/uL (140-400) Neutrophils (%) (Auto) 91 % (31-73) Lymphocytes (%) (Auto) 4 % (24-48) Monocytes (%) (Auto) 5 % (0-9) Eosinophils (%) (Auto) 0 % (0-3) Basophils (%) (Auto) 0 % (0-3) Neutrophils # (Auto) 12.0 x10^3uL (1.8-7.7) Lymphocytes # (Auto) 0.5 x10^3/uL (1.0-4.8) Monocytes # (Auto) 0.6 x10^3/uL (0.0-1.1) Eosinophils # (Auto) 0.0 x10^3/uL (0.0-0.7) Basophils # (Auto) 0.0 x10^3/uL (0.0-0.2) Segmented Neutrophils % 76 % (35-66) Band Neutrophils % 15 % (0-9) Lymphocytes % 2 % (24-48) Monocytes % 5 % (0-10) Eosinophils % 1 % (0-5) Basophils % 1 % (0-3) Platelet Estimate Adequate (ADEQUATE) O2 Saturation 91 % (92-99) Arterial Blood pH 7.38 (7.35-7.45) Arterial Blood pCO2 at Patient Temp 53 mmHg (35-46) Arterial Blood pO2 at Patient Temp 61 mmHg (65-108) Arterial Blood HCO3 30 mmol/L (21-28) Arterial Blood Base Excess 4 mmol/L (-3-3) FiO2 32 Sodium Level 141 mmol/L (136-145) Potassium Level 4.7 mmol/L (3.5-5.1) Chloride Level 101 mmol/L (98-107) Carbon Dioxide Level 34 mmol/L (21-32) Anion Gap 6 (6-14) Blood Urea Nitrogen 20 mg/dL (7-20) Creatinine 1.4 mg/dL (0.6-1.0) Estimated GFR (Cockcroft-Gault) 35.4 BUN/Creatinine Ratio 14 (6-20) Glucose Level 182 mg/dL (70-99) Lactic Acid Level 1.1 mmol/L (0.4-2.0) Calcium Level 9.3 mg/dL (8.5-10.1) Magnesium Level 1.8 mg/dL (1.8-2.4) Total Bilirubin 0.6 mg/dL (0.2-1.0) Aspartate Amino Transf (AST/SGOT) 28 U/L (15-37) Alanine Aminotransferase (ALT/SGPT) 21 U/L (14-59) Alkaline Phosphatase 134 U/L (46-116) Creatine Kinase 76 U/L (26-192) Troponin I Quantitative < 0.017 ng/mL (0.000-0.055) MY-Ptq-E-Type Natriuretic Peptide 1543 pg/mL (0-449) Total Protein 7.0 g/dL (6.4-8.2) Albumin 3.2 g/dL (3.4-5.0) Albumin/Globulin Ratio 0.8 (1.0-1.7) Influenza Type A Antigen Negative (NEGATIVE) Influenza Type B Antigen Negative (NEGATIVE) Glucose (Fingerstick) 246 mg/dL (70-99) Medications Active Scripts Medications Dose Route/Sig Max Daily Dose Days Date Category Flonase Allergy Relief (Fluticasone Propionate) 9.9 Ml [place].susp 2 Sprays NS DAILY 02/08/19 Reported Aspirin Ec (Aspirin) 81 Mg Tablet.dr 1 Tab PO DAILYWSUP 02/08/19 Reported Glipizide Er (Glipizide) 5 Mg Tab.er.24 1 Tab PO DAILY 02/08/19 Reported Potassium Chloride 20 Meq Tablet.er 40 Meq PO DAILY 06/26/18 Reported Amlodipine Besylate 10 Mg Tablet 10 Mg PO DAILY 06/26/18 Reported Namenda (Memantine Hcl) 10 Mg Tablet 5 Mg PO BID 10/16/16 Reported Synthroid (Levothyroxine Sodium) 100 Mcg Tablet 100 Mcg PO DAILY 10/16/16 Reported Lasix (Furosemide) 40 Mg Tablet 40 Mg PO DAILY 10/16/16 Reported Vasotec (Enalapril Maleate) 20 Mg Tablet 20 Mg PO BID 10/16/16 Reported Cymbalta (Duloxetine Hcl) 30 Mg Capsule.dr 30 Mg PO HS 10/16/16 Reported Aricept (Donepezil Hcl) 10 Mg Tablet 10 Mg PO DAILY 10/16/16 Reported Carvedilol 25 Mg Tablet 25 Mg PO BIDWMEALS 10/16/16 Reported Aspir 81 (Aspirin) 81 Mg Tablet.dr 81 Mg PO HS 10/16/16 Reported Allopurinol 300 Mg Tablet 300 Mg PO DAILY 10/16/16 Reported Impression . NOTE DICTATED ACUTE RESP FAILURE A/C HEART FAILURE FEVER POSSIBLE PNEUMONIA JEFF MURGUIA MD February 08, 2019 18:19
[2019-02-08 19:57] VITALS: BP 115/60
[2019-02-08] MEDS: ENOXAPARIN 30 MG/0.3 ML SYRINGE. SQ SCH (21:00)
[2019-02-08] MEDS: MEMANTINE 5 MG TABLET. PO SCH (21:00)
[2019-02-08] MEDS: ASPIRIN ENTERIC COATED 81 MG TABLET.DR. PO SCH (21:00)
[2019-02-08] MEDS: DULoxetine HCL 30 MG CAPSULE.DR PO SCH (21:00)
[2019-02-08] MEDS: LISINOPRIL 20 MG TABLET PO SCH (21:00)
[2019-02-08] MEDS: methylPREDNISolone SOD SUCC PF 125 MG/2 ML VIAL. IV SCH (21:00)
[2019-02-08] MEDS: DOXYCYCLINE HYCLATE 100 MG TABLET PO SCH (21:00)
--- NOTE | 2019-02-08 21:03 | CONS ---
DATE OF CONSULTATION: 02/08/2019 ATTENDING PHYSICIAN: Dr. Mirta Escamilla. REASON FOR CONSULTATION: The patient is seen in pulmonary consultation at the request of Dr. Escamilla for abnormal x-ray. HISTORY OF PRESENT ILLNESS: The patient is a poor historian, presented to the Emergency Room after family members and caregivers were concerned about her shortness of air. She normally wears 2 liters of oxygen at home. She started complaining of being increasingly more short of breath over the last 5 days, not being able to get out of bed, has generalized weakness. She was found to have O2 saturations on room air of 76% by EMS. She was transferred to the Emergency Department. She was found to have a temperature elevation of 100. White count was elevated. Hemoglobin and hematocrit were noted. Serology for influenza was negative. Chest x-ray was abnormal revealing bilateral infiltrates, questionable effusion on the left. I was asked to see her in consultation. The patient denies fever, chills, nausea, vomiting or diarrhea. She does not have any dysphagia. PAST MEDICAL HISTORY: Chronic heart failure, COPD, previous tobacco use. She has had a sarcoma of the lower extremity removed. PAST SURGICAL HISTORY: As above, right lower extremity, she had myosarcoma, I believe. ALLERGIES: No known drug allergies. REVIEW OF SYSTEMS: CONSTITUTIONAL: No fever or chills. EYES: No changes in visual acuity. HEENT: No nasal congestion or sore throat. PULMONARY: As indicated above. CARDIOVASCULAR: No chest pain or pressure. She does take Lasix at home. GASTROINTESTINAL: No nausea, vomiting or diarrhea. GENITOURINARY: No dysuria or frequency. MUSCULOSKELETAL: No localized muscle aches or joint pains. SKIN: No new skin rashes. NEUROLOGIC: No headaches, diplopia or blurred vision. CURRENT MEDICATIONS: List was reviewed. HOME MEDICATIONS: List was reviewed. FAMILY HISTORY: Noncontributory in this age group. PHYSICAL EXAMINATION: GENERAL: The patient appeared to be her stated age. VITAL SIGNS: Stable. O2 saturation is greater than 92%. HEENT: Eyes, the sclerae were nonicteric. NECK: Jugular venous distention was not elevated. No lymphadenopathy. CHEST: Full expansion. LUNGS: Diminished breath sounds in the bases. No wheezes. CARDIOVASCULAR: Regular rate and rhythm with S1, S2, no S3. ABDOMEN: Soft, nontender, nondistended. EXTREMITIES: No clubbing, cyanosis or edema. Underwent previous surgical intervention for the sarcoma. LABORATORY DATA: Reviewed. White count was elevated. Arterial blood gas, pH of 7.38, paCO2 of 53, pO2 of 61 on 32%. Electrolytes were noted. Troponin level was not elevated. BUN was 20, creatinine was 1.4. Albumin was low. Chest x-ray as indicated above. IMPRESSION: 1. Acute on chronic hypoxemic respiratory failure. 2. Acute exacerbation of chronic obstructive pulmonary disease. 3. Possible pneumonia. 4. Acute on chronic systolic and diastolic heart failure. 5. Dementia. 6. Obesity. 7. Hypothyroidism. 8. Chronic kidney disease. 9. Fever. PLAN: 1. We will continue ceftriaxone and add doxycycline. 2. Steroids. 3. Diurese. 4. Consult Cardiology. 5. Make further recommendations depending on the patient's clinical response. I do appreciate the privilege in sharing in the patient's care. JEFF MURGUIA MD DR: RYAN/mariana JOB#: [id number] / [id number]
[2019-02-08 23:13] VITALS: BP 145/77
[2019-02-09 03:53] VITALS: BP 139/73
[2019-02-09] MEDS: LEVOTHYROXINE 100 MCG TABLET PO SCH (05:42)
[2019-02-09] MEDS: IPRATRPIUM/ALBUTEROL 0.5/2.5MG 3 ML NEBU. NEB SCH ×4 (06:02→21:45)
[2019-02-09 07:00] VITALS: BP 136/73
--- NOTE | 2019-02-09 07:53 | NUR ---
Chart review done w/ indication of general weakness. Spoke w/ dtr in room. Dtr feels pt would benefit from PT/OT Eval and Treat. Please order if agree. Addendum: 02/09/19 at 0754 by NADYA TILLMAN OT Amended: Links added.
[2019-02-09] MEDS: ALLOPURINOL 300 MG TABLET. PO SCH (08:34)
[2019-02-09] MEDS: cefTRIAXone IV Push 1 GM VIAL. IVP SCH (08:34)
[2019-02-09] MEDS: methylPREDNISolone SOD SUCC PF 125 MG/2 ML VIAL. IV SCH ×2 (08:34→21:32)
[2019-02-09] MEDS: FLUTICASONE 50MCG/NASAL SPRAY 16GM BOTTLE. NS SCH (08:34)
[2019-02-09] MEDS: DOXYCYCLINE HYCLATE 100 MG TABLET PO SCH ×2 (08:35→21:32)
[2019-02-09] MEDS: FUROSEMIDE 40 MG TABLET. PO SCH (08:35)
[2019-02-09] MEDS: POTASSIUM CHLORIDE 10 MEQ TABLET.ER. PO SCH (08:35)
[2019-02-09] MEDS: DONEPEZIL HCL 10 MG TABLET. PO SCH (08:35)
[2019-02-09] MEDS: MEMANTINE 5 MG TABLET. PO SCH ×2 (08:36→21:32)
[2019-02-09] MEDS: glipiZIDE ER 2.5 MG TAB.ER.24 PO SCH (08:36)
[2019-02-09] MEDS: CARVEDILOL 6.25 MG TABLET. PO SCH ×2 (08:37→16:57)
[2019-02-09] MEDS: LISINOPRIL 20 MG TABLET PO SCH ×2 (08:37→21:33)
[2019-02-09] MEDS: amLODIPine BESYLATE 10 MG TABLET PO SCH (08:38)
[2019-02-09] MEDS ORDERED: predniSONE 20 MG TABLET PO SCH (09:00)
--- NOTE | 2019-02-09 10:23 | PDOC2 ---
MOOK KOVACS COMMUNITY SERVICE SPECIALIST 02/09/19 1023: CARDIAC CONSULT DATE OF CONSULT Date of Consult DATE: 02/09/19 TIME: 10:23 REASON FOR CONSULT Reason for Consult: acute CHF REFERRING PHYSICIAN Referring Physician: Dr. Kimble SOURCE Source: Chart review, Patient HISTORY OF PRESENT ILLNESS HISTORY OF PRESENT ILLNESS This is a 88 yo female who presented secondary to shortness of breath. Daughter reports cough and congestion for the last couple of weeks. Was initially a little better following an antibiotic that was prescribes for a UTI, but then progressively worsened. Has been more weak in the last couple of days. Yesterday, caregiver came to the house and noticed that her oxygen machine had been accidentally unplugged from the wall. Patient was significantly short of breath and oxygen saturation was in the 70's. Began vomiting. Oxygen was reconnected and saturation did improve to the low 90's, but due to ongoing weakness and shortness of breath and cough, EMS was called. Patient denies any chest pain, palpitations, dizziness, or diaphoresis. No significant low edema. Reports compliance with meds. Daughter reports some increasing confusion recently. PAST MEDICAL HISTORY Past Medical History Cardiovascular: CHF, HTN Pulmonary: COPD CENTRAL NERVOUS SYSTEM: Dementia GI: No pertinent hx Heme/Onc: Cancer (bone) Hepatobiliary: No pertinent hx Psych: No pertinent hx Musculoskeletal: Osteoarthritis Rheumatologic: Gout ENT: No pertinent hx Renal/: Chronic renal insuff Endocrine: Diabetes Dermatology: No pertinent hx PAST SURGICAL HISTORY Past Surgical History Hernia Repair, Total knee replacement (bilateral ), Other (right leg, ankle) FAMILY HISTORY Family History: Heart Disease, Hypertension SOCIAL HISTORY Social History Smoke: No ALCOHOL: none Drugs: None Lives: Alone (has caregiver most of the time) CURRENT MEDICATIONS CURRENT MEDICATIONS Current Medications Medications (Trade) Dose Ordered Sig/Robe Route PRN Reason Start Time Stop Time Status Last Admin Dose Admin Albuterol/ Ipratropium (Duoneb) 3 ml Q4HRS W/A NEB 02/08/19 18:00 02/09/19 06:02 Allopurinol (Zyloprim) 300 mg DAILY PO 02/08/19 16:00 02/09/19 08:34 Amlodipine Besylate (Norvasc) 10 mg DAILY PO 02/08/19 16:00 02/09/19 08:38 Aspirin (Ecotrin) 81 mg HS PO 02/08/19 21:00 02/08/19 21:00 Duloxetine HCl (Cymbalta) 30 mg HS PO 02/08/19 21:00 02/08/19 21:00 Furosemide (Lasix) 40 mg DAILY PO 02/08/19 16:00 02/09/19 08:35 Levothyroxine Sodium (Synthroid) 100 mcg DAILY07 PO 02/08/19 16:00 02/09/19 05:42 Donepezil HCl (Aricept) 10 mg DAILY PO 02/08/19 16:00 02/09/19 08:35 Lisinopril (Prinivil) 20 mg BID PO 02/08/19 21:00 02/09/19 08:37 Fluticasone Propionate (Flonase) 2 spray DAILY NS 02/09/19 09:00 02/09/19 08:34 Glipizide (Glucotrol Er) 5 mg DAILY08 PO 02/09/19 08:00 02/09/19 08:36 Memantine (Namenda) 5 mg BID PO 02/08/19 21:00 02/09/19 08:36 Potassium Chloride (Klor-Con) 10 meq DAILYWBKFT PO 02/09/19 08:00 02/09/19 08:35 Carvedilol (Coreg) 6.25 mg BIDWMEALS PO 02/08/19 17:00 02/09/19 08:37 Enoxaparin Sodium (Lovenox 30mg Syringe) 30 mg Q24H SQ 02/08/19 21:00 02/08/19 21:00 Ceftriaxone Sodium (Rocephin) 1 gm Q24H IVP 02/09/19 09:00 02/09/19 08:34 Doxycycline Hyclate (Vibra-Tab) 100 mg BID PO 02/08/19 21:00 02/09/19 08:35 Methylprednisolone Sodium Succinate (SOLU-Medrol 125MG VIAL) 125 mg BID IV 02/08/19 21:00 02/09/19 08:34 ALLERGIES ALLERGIES: Coded Allergies: No Known Drug Allergies (Unverified , 11/14/16) ROS Review of System 14 point ROS conducted with pertinent positives noted above in HPI. PHYSICAL EXAM General: Alert, Cooperative, No acute distress HEENT: Atraumatic, Mucous membr. moist/pink Lungs: Other (crackles ) Heart: Regular rate, Normal S1, Normal S2 Abdomen: Soft, No tenderness Extremities: No edema, Normal pulses Skin: No significant lesion Neuro: Normal speech, Sensation intact Psych/Mental Status: Mental status NL, Mood NL MUSCULOSKELETAL: Osteoarthritic changes both hands VITALS VITALS Vital Signs Date Time Temp Pulse Resp B/P (MAP) Pulse Ox O2 Delivery O2 Flow Rate FiO2 02/09/19 08:38 104 136/73 02/09/19 07:00 97.1 16 94 Nasal Cannula 3.0 97.1 LABS Lab: Laboratory Tests Test 02/08/19 17:31 02/08/19 21:15 02/09/19 07:34 Glucose (Fingerstick) 246 mg/dL (70-99) 250 mg/dL (70-99) 248 mg/dL (70-99) ECHOCARDIOGRAM ECHOCARDIOGRAM <Conclusion> The left ventricular systolic function is normal and the ejection fraction is within normal range. EF 55% There is grossly normal LV segmental wall motion. DATE: 11/13/17 1212 ASSESSMENT/PLAN ASSESSMENT/PLAN 1. Acute respiratory failure; multifactorial with AECOPD, a/c diastolic HF, and possible PNA 2. Acute on chronic diastolic CHF 3. CKD 4. Leukocytosis, fevers, PNA 5. Hypertension; controlled 6. Diabetes, II 7. Hypothyroidism 8. Dementia Recommendations Echo to assess LV systolic function Lasix therapy Antibiotics Supportive care ANASTACIO HURLEY MD 02/09/19 1444: CARDIAC CONSULT ASSESSMENT/PLAN ASSESSMENT/PLAN Pt. seen and examined. Agree with above NET UI DEVELOPER note. 88 y.o F with probable PNA/diastolic HF Gentle diuresis. Thanks. MOOK KOVACS APRN February 09, 2019 10:23 ANASTACIO HURLEY MD February 09, 2019 14:44
--- NOTE | 2019-02-09 10:59 | PDOC ---
PULMONARY PROGRESS NOTES Subjective still coughing, no soa Vitals Vital Signs Date Time Temp Pulse Resp B/P (MAP) Pulse Ox O2 Delivery O2 Flow Rate FiO2 02/09/19 08:38 104 136/73 02/09/19 07:00 97.1 16 94 Nasal Cannula 3.0 97.1 General: Alert, No acute distress Lungs: Other (coarse) Cardiovascular: S1 Abdomen: Soft Neuro Exam: Alert Extremities: Other (RL extremity soft tissue swelling) Skin: Warm Labs Laboratory Tests Test 02/08/19 09:45 02/08/19 10:15 02/08/19 17:31 02/08/19 21:15 White Blood Count 13.2 x10^3/uL (4.0-11.0) Red Blood Count 3.78 x10^6/uL (3.50-5.40) Hemoglobin 11.4 g/dL (12.0-15.5) Hematocrit 35.8 % (36.0-47.0) Mean Corpuscular Volume 95 fL (79-100) Mean Corpuscular Hemoglobin 30 pg (25-35) Mean Corpuscular Hemoglobin Concent 32 g/dL (31-37) Red Cell Distribution Width 15.5 % (11.5-14.5) Platelet Count 198 x10^3/uL (140-400) Neutrophils (%) (Auto) 91 % (31-73) Lymphocytes (%) (Auto) 4 % (24-48) Monocytes (%) (Auto) 5 % (0-9) Eosinophils (%) (Auto) 0 % (0-3) Basophils (%) (Auto) 0 % (0-3) Neutrophils # (Auto) 12.0 x10^3uL (1.8-7.7) Lymphocytes # (Auto) 0.5 x10^3/uL (1.0-4.8) Monocytes # (Auto) 0.6 x10^3/uL (0.0-1.1) Eosinophils # (Auto) 0.0 x10^3/uL (0.0-0.7) Basophils # (Auto) 0.0 x10^3/uL (0.0-0.2) Segmented Neutrophils % 76 % (35-66) Band Neutrophils % 15 % (0-9) Lymphocytes % 2 % (24-48) Monocytes % 5 % (0-10) Eosinophils % 1 % (0-5) Basophils % 1 % (0-3) Platelet Estimate Adequate (ADEQUATE) O2 Saturation 91 % (92-99) Arterial Blood pH 7.38 (7.35-7.45) Arterial Blood pCO2 at Patient Temp 53 mmHg (35-46) Arterial Blood pO2 at Patient Temp 61 mmHg (65-108) Arterial Blood HCO3 30 mmol/L (21-28) Arterial Blood Base Excess 4 mmol/L (-3-3) FiO2 32 Sodium Level 141 mmol/L (136-145) Potassium Level 4.7 mmol/L (3.5-5.1) Chloride Level 101 mmol/L (98-107) Carbon Dioxide Level 34 mmol/L (21-32) Anion Gap 6 (6-14) Blood Urea Nitrogen 20 mg/dL (7-20) Creatinine 1.4 mg/dL (0.6-1.0) Estimated GFR (Cockcroft-Gault) 35.4 BUN/Creatinine Ratio 14 (6-20) Glucose Level 182 mg/dL (70-99) Lactic Acid Level 1.1 mmol/L (0.4-2.0) Calcium Level 9.3 mg/dL (8.5-10.1) Magnesium Level 1.8 mg/dL (1.8-2.4) Total Bilirubin 0.6 mg/dL (0.2-1.0) Aspartate Amino Transf (AST/SGOT) 28 U/L (15-37) Alanine Aminotransferase (ALT/SGPT) 21 U/L (14-59) Alkaline Phosphatase 134 U/L (46-116) Creatine Kinase 76 U/L (26-192) Troponin I Quantitative < 0.017 ng/mL (0.000-0.055) IQ-Nxo-J-Type Natriuretic Peptide 1543 pg/mL (0-449) Total Protein 7.0 g/dL (6.4-8.2) Albumin 3.2 g/dL (3.4-5.0) Albumin/Globulin Ratio 0.8 (1.0-1.7) Influenza Type A Antigen Negative (NEGATIVE) Influenza Type B Antigen Negative (NEGATIVE) Glucose (Fingerstick) 246 mg/dL (70-99) 250 mg/dL (70-99) Test 02/09/19 07:34 Glucose (Fingerstick) 248 mg/dL (70-99) Laboratory Tests Test 02/08/19 17:31 02/08/19 21:15 02/09/19 07:34 Glucose (Fingerstick) 246 mg/dL (70-99) 250 mg/dL (70-99) 248 mg/dL (70-99) Medications Active Scripts Medications Dose Route/Sig Max Daily Dose Days Date Category Flonase Allergy Relief (Fluticasone Propionate) 9.9 Ml [place].susp 2 Sprays NS DAILY 02/08/19 Reported Aspirin Ec (Aspirin) 81 Mg Tablet.dr 1 Tab PO DAILYWSUP 02/08/19 Reported Glipizide Er (Glipizide) 5 Mg Tab.er.24 1 Tab PO DAILY 02/08/19 Reported Potassium Chloride 20 Meq Tablet.er 40 Meq PO DAILY 06/26/18 Reported Amlodipine Besylate 10 Mg Tablet 10 Mg PO DAILY 06/26/18 Reported Namenda (Memantine Hcl) 10 Mg Tablet 5 Mg PO BID 10/16/16 Reported Synthroid (Levothyroxine Sodium) 100 Mcg Tablet 100 Mcg PO DAILY 10/16/16 Reported Lasix (Furosemide) 40 Mg Tablet 40 Mg PO DAILY 10/16/16 Reported Vasotec (Enalapril Maleate) 20 Mg Tablet 20 Mg PO BID 10/16/16 Reported Cymbalta (Duloxetine Hcl) 30 Mg Capsule.dr 30 Mg PO HS 10/16/16 Reported Aricept (Donepezil Hcl) 10 Mg Tablet 10 Mg PO DAILY 10/16/16 Reported Carvedilol 25 Mg Tablet 25 Mg PO BIDWMEALS 10/16/16 Reported Aspir 81 (Aspirin) 81 Mg Tablet.dr 81 Mg PO HS 10/16/16 Reported Allopurinol 300 Mg Tablet 300 Mg PO DAILY 10/16/16 Reported Impression . 1. Acute on chronic hypoxemic respiratory failure. 2. Fever/ bilateral infiltrate c/w pneumonia 3. Abnormal CXR 4. ? superimposed Acute on chronic systolic and diastolic heart failure. 5. Dementia. 6. Obesity. 7. Hypothyroidism. 8. Chronic kidney disease. 9. Fever. Plan . 1. We will continue ceftriaxone / doxycycline. 2. Steroids. 3. Diurese. 4. Consult Cardiology. 5. Make further recommendations depending on the patient's clinical response. 6. d/w daughter 7. echo 2017 with normal EF MARU BUSTAMANTE MD February 09, 2019 10:59
[2019-02-09 11:00] VITALS: BP 136/73
--- NOTE | 2019-02-09 12:04 | PDOC ---
PROGRESS NOTES Chief Complaint Chief Complaint 1. Acute on chronic hypoxemic respiratory failure. 2. Fever/ bilateral infiltrate c/w pneumonia 3. Abnormal CXR 4. ? superimposed Acute on chronic systolic and diastolic heart failure. 5. Dementia. 6. Obesity. 7. Hypothyroidism. 8. Chronic kidney disease. 9. Fever. 10. Gen weakness 11. DNR History of Present Illness History of Present Illness Still coughing excessively Daughter at bedside-wants [facility] SNU- has been there before Appreciate pulmonary On baseline 2 L at home. WBC 13 but on steroids, hemoglobin 11. Pulmonary has consulted cardiology-known patient of Dr. Lee has yet to see Plan: start Tessalon and Robitussin scheduled Await cardiology On Solu-Medrol 125 twice a day Doxy and [place] Social work consult for SNU Add PTOT too DNR Vitals Vitals Vital Signs Date Time Temp Pulse Resp B/P (MAP) Pulse Ox O2 Delivery O2 Flow Rate FiO2 02/09/19 11:00 97.6 94 18 136/73 (94) 91 Nasal Cannula 3.0 97.6 Physical Exam General: Alert, Cooperative, No acute distress, mild distress, Other (not oriented, ) Heart: Regular rate, Normal S1, Normal S2 Lungs: Wheezing, Crackles, Other (coarse) Abdomen: Normal bowel sounds, Soft Extremities: No clubbing, No cyanosis, No edema, Normal pulses Skin: No rashes, No breakdown Labs LABS Laboratory Tests Test 02/08/19 17:31 02/08/19 21:15 02/09/19 07:34 02/09/19 11:55 Glucose (Fingerstick) 246 mg/dL (70-99) 250 mg/dL (70-99) 248 mg/dL (70-99) 268 mg/dL (70-99) Review of Systems Review of Systems cough, weak, hence limited ROS Assessment and Plan Assessmemt and Plan Problems Medical Problems: (1) Acute respiratory distress Status: Acute (2) Anemia Status: Acute (3) CAP (community acquired pneumonia) Status: Acute (4) COPD exacerbation Status: Acute (5) Fever Status: Acute (6) Heart failure Status: Acute (7) Pleural effusion Status: Acute (8) Renal insufficiency Status: Acute Comment Review of Relevant I have reviewed the following items alexei (where applicable) has been applied. Labs Laboratory Tests Test 02/08/19 09:45 02/08/19 10:15 02/08/19 17:31 02/08/19 21:15 White Blood Count 13.2 x10^3/uL (4.0-11.0) Red Blood Count 3.78 x10^6/uL (3.50-5.40) Hemoglobin 11.4 g/dL (12.0-15.5) Hematocrit 35.8 % (36.0-47.0) Mean Corpuscular Volume 95 fL (79-100) Mean Corpuscular Hemoglobin 30 pg (25-35) Mean Corpuscular Hemoglobin Concent 32 g/dL (31-37) Red Cell Distribution Width 15.5 % (11.5-14.5) Platelet Count 198 x10^3/uL (140-400) Neutrophils (%) (Auto) 91 % (31-73) Lymphocytes (%) (Auto) 4 % (24-48) Monocytes (%) (Auto) 5 % (0-9) Eosinophils (%) (Auto) 0 % (0-3) Basophils (%) (Auto) 0 % (0-3) Neutrophils # (Auto) 12.0 x10^3uL (1.8-7.7) Lymphocytes # (Auto) 0.5 x10^3/uL (1.0-4.8) Monocytes # (Auto) 0.6 x10^3/uL (0.0-1.1) Eosinophils # (Auto) 0.0 x10^3/uL (0.0-0.7) Basophils # (Auto) 0.0 x10^3/uL (0.0-0.2) Segmented Neutrophils % 76 % (35-66) Band Neutrophils % 15 % (0-9) Lymphocytes % 2 % (24-48) Monocytes % 5 % (0-10) Eosinophils % 1 % (0-5) Basophils % 1 % (0-3) Platelet Estimate Adequate (ADEQUATE) O2 Saturation 91 % (92-99) Arterial Blood pH 7.38 (7.35-7.45) Arterial Blood pCO2 at Patient Temp 53 mmHg (35-46) Arterial Blood pO2 at Patient Temp 61 mmHg (65-108) Arterial Blood HCO3 30 mmol/L (21-28) Arterial Blood Base Excess 4 mmol/L (-3-3) FiO2 32 Sodium Level 141 mmol/L (136-145) Potassium Level 4.7 mmol/L (3.5-5.1) Chloride Level 101 mmol/L (98-107) Carbon Dioxide Level 34 mmol/L (21-32) Anion Gap 6 (6-14) Blood Urea Nitrogen 20 mg/dL (7-20) Creatinine 1.4 mg/dL (0.6-1.0) Estimated GFR (Cockcroft-Gault) 35.4 BUN/Creatinine Ratio 14 (6-20) Glucose Level 182 mg/dL (70-99) Lactic Acid Level 1.1 mmol/L (0.4-2.0) Calcium Level 9.3 mg/dL (8.5-10.1) Magnesium Level 1.8 mg/dL (1.8-2.4) Total Bilirubin 0.6 mg/dL (0.2-1.0) Aspartate Amino Transf (AST/SGOT) 28 U/L (15-37) Alanine Aminotransferase (ALT/SGPT) 21 U/L (14-59) Alkaline Phosphatase 134 U/L (46-116) Creatine Kinase 76 U/L (26-192) Troponin I Quantitative < 0.017 ng/mL (0.000-0.055) QQ-Fxm-U-Type Natriuretic Peptide 1543 pg/mL (0-449) Total Protein 7.0 g/dL (6.4-8.2) Albumin 3.2 g/dL (3.4-5.0) Albumin/Globulin Ratio 0.8 (1.0-1.7) Influenza Type A Antigen Negative (NEGATIVE) Influenza Type B Antigen Negative (NEGATIVE) Glucose (Fingerstick) 246 mg/dL (70-99) 250 mg/dL (70-99) Test 02/09/19 07:34 02/09/19 11:55 Glucose (Fingerstick) 248 mg/dL (70-99) 268 mg/dL (70-99) Laboratory Tests Test 02/08/19 17:31 02/08/19 21:15 02/09/19 07:34 02/09/19 11:55 Glucose (Fingerstick) 246 mg/dL (70-99) 250 mg/dL (70-99) 248 mg/dL (70-99) 268 mg/dL (70-99) Microbiology 02/08/19 Blood Culture - Preliminary, Resulted NO GROWTH AFTER 1 DAY Medications Current Medications Sodium Chloride 1,000 ml @ 1,000 mls/hr Q1H IV Last administered on 02/08/19at 10:15; Start 02/08/19 at 09:45; Stop 02/08/19 at 10:44; Status DC Albuterol/ Ipratropium (Duoneb) 3 ml 1X ONCE NEB Last administered on 02/08/19at 09:45; Start 02/08/19 at 09:45; Stop 02/08/19 at 09:49; Status DC Methylprednisolone Sodium Succinate (SOLU-Medrol 125MG VIAL) 125 mg 1X ONCE IV Last administered on 02/08/19at 10:15; Start 02/08/19 at 09:45; Stop 02/08/19 at 09:49; Status DC Acetaminophen (Tylenol) 1,000 mg 1X ONCE PO ; Start 02/08/19 at 09:45; Stop 02/08/19 at 09:49; Status DC Acetaminophen (Tylenol) 1,000 mg 1X ONCE PO Last administered on 02/08/19at 10:15; Start 02/08/19 at 10:15; Stop 02/08/19 at 10:16; Status DC Ceftriaxone Sodium (Rocephin) 1 gm 1X ONCE IVP Last administered on 02/08/19at 10:50; Start 02/08/19 at 10:15; Stop 02/08/19 at 10:18; Status DC Prednisone (Prednisone) 40 mg DAILY PO ; Start 02/09/19 at 09:00; Stop 02/09/19 at 09:00; Status DC Albuterol/ Ipratropium (Duoneb) 3 ml Q4HRS W/A NEB Last administered on 02/09/19at 06:02; Start 02/08/19 at 18:00 Allopurinol (Zyloprim) 300 mg DAILY PO Last administered on 02/09/19at 08:34; Start 02/08/19 at 16:00 Amlodipine Besylate (Norvasc) 10 mg DAILY PO Last administered on 02/09/19at 08:38; Start 02/08/19 at 16:00 Aspirin (Ecotrin) 81 mg HS PO Last administered on 02/08/19at 21:00; Start 02/08/19 at 21:00 Duloxetine HCl (Cymbalta) 30 mg HS PO Last administered on 02/08/19 21:00; Start 02/08/19 at 21:00 Furosemide (Lasix) 40 mg DAILY PO Last administered on 02/09/19 08:35; Start 02/08/19 at 16:00 Levothyroxine Sodium (Synthroid) 100 mcg DAILY07 PO Last administered on 02/09/19 05:42; Start 02/08/19 at 16:00 Donepezil HCl (Aricept) 10 mg DAILY PO Last administered on 02/09/19 08:35; Start 02/08/19 at 16:00 Lisinopril (Prinivil) 20 mg BID PO Last administered on 02/09/19 08:37; Start 02/08/19 at 21:00 Fluticasone Propionate (Flonase) 2 spray DAILY NS Last administered on 02/09/19 08:34; Start 02/09/19 at 09:00 Glipizide (Glucotrol Er) 5 mg DAILY08 PO Last administered on 02/09/19 08:36; Start 02/09/19 at 08:00 Memantine (Namenda) 5 mg BID PO Last administered on 02/09/19 08:36; Start 02/08/19 at 21:00 Potassium Chloride (Klor-Con) 10 meq DAILYWBKFT PO Last administered on 02/09/19 08:35; Start 02/09/19 at 08:00 Carvedilol (Coreg) 6.25 mg BIDWMEALS PO Last administered on 02/09/19 08:37; Start 02/08/19 at 17:00 Enoxaparin Sodium (Lovenox 30mg Syringe) 30 mg Q24H SQ Last administered on 02/08/19 21:00; Start 02/08/19 at 21:00 Ceftriaxone Sodium (Rocephin) 1 gm Q24H IVP Last administered on 02/09/19 08:34; Start 02/09/19 at 09:00 Doxycycline Hyclate (Vibra-Tab) 100 mg BID PO Last administered on 02/09/19 08:35; Start 02/08/19 at 21:00 Methylprednisolone Sodium Succinate (SOLU-Medrol 125MG VIAL) 125 mg BID IV Last administered on 5/28/19at 08:34; Start 02/08/19 at 21:00 Active Scripts Active Reported Flonase Allergy Relief (Fluticasone Propionate) 9.9 Ml [place].susp 2 Sprays NS DAILY Aspirin Ec (Aspirin) 81 Mg Tablet.dr 1 Tab PO DAILYWSUP Glipizide Er (Glipizide) 5 Mg Tab.er.24 1 Tab PO DAILY Potassium Chloride 20 Meq Tablet.er 40 Meq PO DAILY Amlodipine Besylate 10 Mg Tablet 10 Mg PO DAILY Namenda (Memantine Hcl) 10 Mg Tablet 5 Mg PO BID Synthroid (Levothyroxine Sodium) 100 Mcg Tablet 100 Mcg PO DAILY Lasix (Furosemide) 40 Mg Tablet 40 Mg PO DAILY Vasotec (Enalapril Maleate) 20 Mg Tablet 20 Mg PO BID Cymbalta (Duloxetine Hcl) 30 Mg Capsule.dr 30 Mg PO HS Aricept (Donepezil Hcl) 10 Mg Tablet 10 Mg PO DAILY Carvedilol 25 Mg Tablet 25 Mg PO BIDWMEALS Aspir 81 (Aspirin) 81 Mg Tablet.dr 81 Mg PO HS Allopurinol 300 Mg Tablet 300 Mg PO DAILY Vitals/I & O Vital Sign - Last 24 Hours 02/08/19 02/08/19 02/08/19 02/08/19 15:00 15:42 17:09 19:57 Temp 99.1 98.2 99.1 98.2 Pulse 98 94 105 Resp 16 20 B/P (MAP) 123/65 (84) 120/57 115/60 (78) Pulse Ox 93 95 94 O2 Delivery Nasal Cannula Nasal Cannula Nasal Cannula O2 Flow Rate 3.0 3.0 3.0 02/08/19 02/08/19 02/08/19 02/09/19 20:00 21:00 23:13 00:35 Temp 98.1 98.1 Pulse 105 101 Resp 20 B/P (MAP) 115/60 145/77 (99) Pulse Ox 90 O2 Delivery Nasal Cannula Nasal Cannula Nasal Cannula O2 Flow Rate 3.0 3.0 3.0 02/09/19 02/09/19 02/09/19 02/09/19 03:53 06:02 07:00 08:00 Temp 97.6 97.1 97.6 97.1 Pulse 108 104 Resp 20 16 B/P (MAP) 139/73 (95) 136/73 (94) Pulse Ox 93 96 94 O2 Delivery Nasal Cannula Nasal Cannula Nasal Cannula Nasal Cannula O2 Flow Rate 3.0 3.0 3.0 3.0 02/09/19 02/09/19 02/09/19 02/09/19 08:37 08:37 08:38 11:00 Temp 97.6 97.6 Pulse 104 104 104 94 Resp 18 B/P (MAP) 136/73 136/73 136/73 136/73 (94) Pulse Ox 91 O2 Delivery Nasal Cannula O2 Flow Rate 3.0 Intake and Output 02/08/19 02/08/19 02/09/19 14:59 22:59 06:59 Intake Total 1120 ml 110 ml 120 ml Balance 1120 ml 110 ml 120 ml ROSEMARIE LUCIO MD February 09, 2019 12:04
[2019-02-09] MEDS ORDERED: DEXTROSE 50% 25 GM / 50ML DISP.SYRIN. IV PRN (12:45)
--- NOTE | 2019-02-09 13:04 | NUR ---
SW consulted for SNU. Chart reviewed. Pt is from home. PT/OT is pending. SW will await for PT/OT recommendation to assess skilled needs. Will continue to follow.
--- NOTE | 2019-02-09 13:15 | CARD ---
MR#: [id number] Date of Study: 02/09/2019 Ordering Physician: MOOK KOVACS, Referring Physician: ANNA MARIE CAVAZOS, Tech: Gina Valentine APPROVED REPORT EXAM: Two-dimensional and M-mode echocardiogram with Doppler and color Doppler. Other Information Quality : AverageHR: 97bpm INDICATION COPD Dyspnea Congestive Heart Failure RISK FACTORS Hypertension Diabetes 2D DIMENSIONS RVDd2.5 (2.9-3.5cm)Left Atrium(2D)3.1 (1.6-4.0cm) IVSd1.1 (0.7-1.1cm)Aortic Root(2D)2.5 (2.0-3.7cm) LVDd4.8 (3.9-5.9cm)LVOT Diameter2.0 (1.8-2.4cm) PWd0.8 (0.7-1.1cm)LVDs2.8 (2.5-4.0cm) FS (%) 42.4 %SV78.6 ml LVEF(%)73.4 (>50%) Aortic Valve AoV Peak Chavez.199.5cm/sAoV VTI42.3cm AO Peak GR.15.9mmHgLVOT VTI 16.23cm AO Mean GR.9mmHg Mitral Valve MV E Fmgfpaod353.0cm/sMV DECEL DDOM652ke TDI Lateral E' P. V5.79cm/sMedial E' P. V8.50cm/s E/Lateral E'27.3E/Medial E'18.6 Tricuspid Valve TR P. Gzgawium217jk/sRAP [id number] TR Peak Gr.32eiMvRFUT05yaCw Pulmonary Vein S1 Vbjnayhd32.2cm/sS2 Ixddjufe23.24cm/s D2 Ejsmvrgl53.2cm/s LEFT VENTRICLE The left ventricle is normal size. There is normal left ventricular wall thickness. The left ventricu lar systolic function is normal and the ejection fraction is within normal range. The Ejection Fracti on is >55%. There is grossly normal LV segmental wall motion. Technically limited images. Tissue Dopp ler imaging reveals moderate left ventricular diastolic dysfunction. RIGHT VENTRICLE The right ventricle is normal size. There is normal right ventricular wall thickness. The right ventr icular systolic function is normal. ATRIA The left atrium is mildly dilated. The right atrium is borderline dilated. Interatrial septal thicken ing is noted. AORTIC VALVE The aortic valve is calcified and not well visualized. Doppler and Color Flow revealed no significant aortic regurgitation. There is no significant aortic valvular stenosis. MITRAL VALVE The mitral valve is calcified and not well visualized. There is no evidence of mitral valve prolapse. There is no mitral valve stenosis. Doppler and Color-flow revealed trace mitral regurgitation. TRICUSPID VALVE The tricuspid valve is normal in structure and function. Doppler and Color Flow revealed moderate tri cuspid regurgitation. RVSP 39 mm Hg. There is no tricuspid valve stenosis. PULMONIC VALVE Not well visualized GREAT VESSELS The aortic root is normal in size. The IVC is normal in size and collapses >50% with inspiration. PERICARDIAL EFFUSION There is no evidence of significant pericardial effusion. Critical Notification Critical Value: No <Conclusion> The left ventricular systolic function is normal and the ejection fraction is within normal range. Th e Ejection Fraction is >55%. There is grossly normal LV segmental wall motion. Technically limited images. Doppler and Color Flow revealed moderate tricuspid regurgitation. RVSP 39 mm Hg. Signed by : Primitivo Lee, Electronically Approved : 02/09/2019 13:14:30
[2019-02-09] MEDS: BENZONATATE 100 MG CAPSULE. PO SCH ×2 (13:53→21:33)
[2019-02-09] MEDS: guaiFENesin DM 200MG/20MG 10 ML SYRUP PO SCH ×3 (13:53→21:33)
[2019-02-09] MEDS ORDERED: FUROSEMIDE 20 MG/2 ML VIAL. IVP ONE (14:45)
[2019-02-09 15:00] VITALS: BP 113/63
[2019-02-09] MEDS: INSULIN LISPRO 300 UNITS/3 ML INSULN.PEN. SQ SCH (17:09)
[2019-02-09 19:20] VITALS: BP 138/71
[2019-02-09] MEDS: LACTOBACILLUS RHAMNOSUS GG 1 CAPSULE. PO SCH (21:32)
[2019-02-09] MEDS: ASPIRIN ENTERIC COATED 81 MG TABLET.DR. PO SCH (21:32)
[2019-02-09] MEDS: DULoxetine HCL 30 MG CAPSULE.DR PO SCH (21:32)
[2019-02-09] MEDS: ENOXAPARIN 30 MG/0.3 ML SYRINGE. SQ SCH (21:34)
[2019-02-09 23:20] VITALS: BP 134/65
[2019-02-10 03:25] VITALS: BP 145/76
[2019-02-10] MEDS: LEVOTHYROXINE 100 MCG TABLET PO SCH (06:31)
[2019-02-10 07:00] VITALS: BP 133/62
[2019-02-10] MEDS: IPRATRPIUM/ALBUTEROL 0.5/2.5MG 3 ML NEBU. NEB SCH ×4 (08:45→20:44)
[2019-02-10] MEDS: FUROSEMIDE 40 MG TABLET. PO SCH (09:34)
[2019-02-10] MEDS: LACTOBACILLUS RHAMNOSUS GG 1 CAPSULE. PO SCH ×2 (09:34→22:00)
[2019-02-10] MEDS: ALLOPURINOL 300 MG TABLET. PO SCH (09:35)
[2019-02-10] MEDS: CARVEDILOL 6.25 MG TABLET. PO SCH ×2 (09:35→17:59)
[2019-02-10] MEDS: DOXYCYCLINE HYCLATE 100 MG TABLET PO SCH ×2 (09:36→22:01)
[2019-02-10] MEDS: BENZONATATE 100 MG CAPSULE. PO SCH ×3 (09:36→22:01)
[2019-02-10] MEDS: DONEPEZIL HCL 10 MG TABLET. PO SCH (09:37)
[2019-02-10] MEDS: amLODIPine BESYLATE 10 MG TABLET PO SCH (09:37)
[2019-02-10] MEDS: MEMANTINE 5 MG TABLET. PO SCH ×2 (09:37→22:01)
[2019-02-10] MEDS: LISINOPRIL 20 MG TABLET PO SCH ×2 (09:37→22:01)
[2019-02-10] MEDS: glipiZIDE ER 2.5 MG TAB.ER.24 PO SCH (09:37)
--- NOTE | 2019-02-10 09:37 | PDOC ---
PULMONARY PROGRESS NOTES Subjective less cough, no soa Vitals Vital Signs Date Time Temp Pulse Resp B/P (MAP) Pulse Ox O2 Delivery O2 Flow Rate FiO2 02/10/19 07:00 97.9 101 20 133/62 (85) 93 Nasal Cannula 3.0 97.9 General: Alert, No acute distress Lungs: Other (less rhonchi) Cardiovascular: S1 Abdomen: Soft Neuro Exam: Alert Extremities: Other (RL extremity soft tissue swelling) Skin: Warm Labs Laboratory Tests Test 02/08/19 09:45 02/08/19 10:15 02/08/19 17:31 02/08/19 21:15 White Blood Count 13.2 x10^3/uL (4.0-11.0) Red Blood Count 3.78 x10^6/uL (3.50-5.40) Hemoglobin 11.4 g/dL (12.0-15.5) Hematocrit 35.8 % (36.0-47.0) Mean Corpuscular Volume 95 fL (79-100) Mean Corpuscular Hemoglobin 30 pg (25-35) Mean Corpuscular Hemoglobin Concent 32 g/dL (31-37) Red Cell Distribution Width 15.5 % (11.5-14.5) Platelet Count 198 x10^3/uL (140-400) Neutrophils (%) (Auto) 91 % (31-73) Lymphocytes (%) (Auto) 4 % (24-48) Monocytes (%) (Auto) 5 % (0-9) Eosinophils (%) (Auto) 0 % (0-3) Basophils (%) (Auto) 0 % (0-3) Neutrophils # (Auto) 12.0 x10^3uL (1.8-7.7) Lymphocytes # (Auto) 0.5 x10^3/uL (1.0-4.8) Monocytes # (Auto) 0.6 x10^3/uL (0.0-1.1) Eosinophils # (Auto) 0.0 x10^3/uL (0.0-0.7) Basophils # (Auto) 0.0 x10^3/uL (0.0-0.2) Segmented Neutrophils % 76 % (35-66) Band Neutrophils % 15 % (0-9) Lymphocytes % 2 % (24-48) Monocytes % 5 % (0-10) Eosinophils % 1 % (0-5) Basophils % 1 % (0-3) Platelet Estimate Adequate (ADEQUATE) O2 Saturation 91 % (92-99) Arterial Blood pH 7.38 (7.35-7.45) Arterial Blood pCO2 at Patient Temp 53 mmHg (35-46) Arterial Blood pO2 at Patient Temp 61 mmHg (65-108) Arterial Blood HCO3 30 mmol/L (21-28) Arterial Blood Base Excess 4 mmol/L (-3-3) FiO2 32 Sodium Level 141 mmol/L (136-145) Potassium Level 4.7 mmol/L (3.5-5.1) Chloride Level 101 mmol/L (98-107) Carbon Dioxide Level 34 mmol/L (21-32) Anion Gap 6 (6-14) Blood Urea Nitrogen 20 mg/dL (7-20) Creatinine 1.4 mg/dL (0.6-1.0) Estimated GFR (Cockcroft-Gault) 35.4 BUN/Creatinine Ratio 14 (6-20) Glucose Level 182 mg/dL (70-99) Lactic Acid Level 1.1 mmol/L (0.4-2.0) Calcium Level 9.3 mg/dL (8.5-10.1) Magnesium Level 1.8 mg/dL (1.8-2.4) Total Bilirubin 0.6 mg/dL (0.2-1.0) Aspartate Amino Transf (AST/SGOT) 28 U/L (15-37) Alanine Aminotransferase (ALT/SGPT) 21 U/L (14-59) Alkaline Phosphatase 134 U/L (46-116) Creatine Kinase 76 U/L (26-192) Troponin I Quantitative < 0.017 ng/mL (0.000-0.055) LN-Czz-[id number]-Type Natriuretic Peptide 1543 pg/mL (0-449) Total Protein 7.0 g/dL (6.4-8.2) Albumin 3.2 g/dL (3.4-5.0) Albumin/Globulin Ratio 0.8 (1.0-1.7) Influenza Type A Antigen Negative (NEGATIVE) Influenza Type B Antigen Negative (NEGATIVE) Glucose (Fingerstick) 246 mg/dL (70-99) 250 mg/dL (70-99) Test 02/09/19 07:34 02/09/19 11:55 02/09/19 17:04 02/09/19 20:46 Glucose (Fingerstick) 248 mg/dL (70-99) 268 mg/dL (70-99) 223 mg/dL (70-99) 233 mg/dL (70-99) Test 02/10/19 08:00 Glucose (Fingerstick) 195 mg/dL (70-99) Laboratory Tests Test 02/09/19 11:55 02/09/19 17:04 02/09/19 20:46 02/10/19 08:00 Glucose (Fingerstick) 268 mg/dL (70-99) 223 mg/dL (70-99) 233 mg/dL (70-99) 195 mg/dL (70-99) Medications Active Scripts Medications Dose Route/Sig Max Daily Dose Days Date Category Flonase Allergy Relief (Fluticasone Propionate) 9.9 Ml [place].susp 2 Sprays NS DAILY 02/08/19 Reported Aspirin Ec (Aspirin) 81 Mg Tablet.dr 1 Tab PO DAILYWSUP 02/08/19 Reported Glipizide Er (Glipizide) 5 Mg Tab.er.24 1 Tab PO DAILY 02/08/19 Reported Potassium Chloride 20 Meq Tablet.er 40 Meq PO DAILY 06/26/18 Reported Amlodipine Besylate 10 Mg Tablet 10 Mg PO DAILY 06/26/18 Reported Namenda (Memantine Hcl) 10 Mg Tablet 5 Mg PO BID 10/16/16 Reported Synthroid (Levothyroxine Sodium) 100 Mcg Tablet 100 Mcg PO DAILY 10/16/16 Reported Lasix (Furosemide) 40 Mg Tablet 40 Mg PO DAILY 10/16/16 Reported Vasotec (Enalapril Maleate) 20 Mg Tablet 20 Mg PO BID 10/16/16 Reported Cymbalta (Duloxetine Hcl) 30 Mg Capsule. 30 Mg PO HS 10/16/16 Reported Aricept (Donepezil Hcl) 10 Mg Tablet 10 Mg PO DAILY 10/16/16 Reported Carvedilol 25 Mg Tablet 25 Mg PO BIDWMEALS 10/16/16 Reported Aspir 81 (Aspirin) 81 Mg Tablet.dr 81 Mg PO HS 10/16/16 Reported Allopurinol 300 Mg Tablet 300 Mg PO DAILY 10/16/16 Reported Impression . 1. Acute on chronic hypoxemic respiratory failure. 2. Fever/ bilateral infiltrate c/w pneumonia 3. Abnormal CXR 4. ? superimposed Acute on chronic systolic and diastolic heart failure. 5. Dementia. 6. Obesity. 7. Hypothyroidism. 8. Chronic kidney disease. 9. Fever. Plan . 1. We will continue ceftriaxone / doxycycline. 2. Steroids taper 3. Diurese. 4. clinically better 5. ok with skill in am 6. d/w daughter 7. echo 2017 with normal EF MARU BUSTAMANTE MD February 10, 2019 09:37
[2019-02-10] MEDS: guaiFENesin DM 200MG/20MG 10 ML SYRUP PO SCH ×4 (09:38→21:59)
[2019-02-10] MEDS: FLUTICASONE 50MCG/NASAL SPRAY 16GM BOTTLE. NS SCH (09:38)
[2019-02-10] MEDS: cefTRIAXone IV Push 1 GM VIAL. IVP SCH (09:39)
[2019-02-10] MEDS: POTASSIUM CHLORIDE 10 MEQ TABLET.ER. PO SCH (09:48)
[2019-02-10] MEDS: INSULIN LISPRO 300 UNITS/3 ML INSULN.PEN. SQ SCH ×3 (10:06→18:08)
[2019-02-10 10:49] LABS: BASO % 0 % (0-3); EOS % 0 % (0-3); HEMATOCRIT 34.7 % (36.0-47.0); LYMPH # 0.4 x10^3/uL (1.0-4.8); LYMPH % 4 % (24-48); MEAN CORPUSCULAR HEMOGLOBIN 30 pg (25-35); MEAN CORPUSCULAR HGB CONC 32 g/dL (31-37); MEAN CORPUSCULAR VOLUME 95 fL (79-100); MONO # 0.2 x10^3/uL (0.0-1.1); MONO % 2 % (0-9); NEUT % 94 % (31-73); PLATELET COUNT 198 x10^3/uL (140-400); RED BLOOD COUNT 3.65 x10^6/uL (3.50-5.40); RED CELL DISTRIBUTION WIDTH 15.5 % (11.5-14.5); WHITE BLOOD COUNT 9.6 x10^3/uL (4.0-11.0)
[2019-02-10 10:53] LABS: CALCIUM 8.8 mg/dL (8.5-10.1); CREATININE 1.7 mg/dL (0.6-1.0); GFR 28.3; POTASSIUM 4.1 mmol/L (3.5-5.1)
[2019-02-10 11:00] VITALS: BP 129/65
--- NOTE | 2019-02-10 11:11 | PDOC ---
PROGRESS NOTES Chief Complaint Chief Complaint 1. Acute on chronic hypoxemic respiratory failure. 2. Fever/ bilateral infiltrate c/w pneumonia 3. Abnormal CXR 4. ? superimposed Acute on chronic systolic and diastolic heart failure. 5. Dementia. 6. Obesity. 7. Hypothyroidism. 8. Chronic kidney disease. 9. Fever. 10. Gen weakness 11. DNR History of Present Illness History of Present Illness Better today Other daughter at bedside She has less coughing today-she did cough on deep inhalation in my auscultation They are all agreeable [facility] and social work on case Appreciate pulmonary On baseline 2 L at home. WBC 13 but on steroids, hemoglobin 11. Pulmonary has consulted cardiology-known patient of Dr. Lee - advosed GENTLE diuresis - on lasix 40 PO, her home regimen Plan: cont ESTHER Tessalon and Robitussin cont lasix 40 PO cards - gentle diuresis I think i can start Tapering Solu-Medrol 60 IV twice a day cont Doxy and Levaquin Plan for [facility] either tomorrow or Friday DNR Vitals Vitals Vital Signs Date Time Temp Pulse Resp B/P (MAP) Pulse Ox O2 Delivery O2 Flow Rate FiO2 02/10/19 09:37 101 133/62 02/10/19 08:40 96 Nasal Cannula 3.0 02/10/19 07:00 97.9 20 97.9 Physical Exam General: Alert, Cooperative, No acute distress Heart: Regular rate, Normal S1, Normal S2 Lungs: Wheezing, Other (less rhonchi, diminshed) Abdomen: Soft, No tenderness Extremities: No clubbing, No cyanosis, No edema, Normal pulses Skin: No rashes, No breakdown, No significant lesion Labs LABS Laboratory Tests Test 02/09/19 11:55 02/09/19 17:04 02/09/19 20:46 02/10/19 08:00 Glucose (Fingerstick) 268 mg/dL (70-99) 223 mg/dL (70-99) 233 mg/dL (70-99) 195 mg/dL (70-99) Test 02/10/19 10:00 White Blood Count 9.6 x10^3/uL (4.0-11.0) Red Blood Count 3.65 x10^6/uL (3.50-5.40) Hemoglobin 11.0 g/dL (12.0-15.5) Hematocrit 34.7 % (36.0-47.0) Mean Corpuscular Volume 95 fL (79-100) Mean Corpuscular Hemoglobin 30 pg (25-35) Mean Corpuscular Hemoglobin Concent 32 g/dL (31-37) Red Cell Distribution Width 15.5 % (11.5-14.5) Platelet Count 198 x10^3/uL (140-400) Neutrophils (%) (Auto) 94 % (31-73) Lymphocytes (%) (Auto) 4 % (24-48) Monocytes (%) (Auto) 2 % (0-9) Eosinophils (%) (Auto) 0 % (0-3) Basophils (%) (Auto) 0 % (0-3) Neutrophils # (Auto) 9.0 x10^3uL (1.8-7.7) Lymphocytes # (Auto) 0.4 x10^3/uL (1.0-4.8) Monocytes # (Auto) 0.2 x10^3/uL (0.0-1.1) Eosinophils # (Auto) 0.0 x10^3/uL (0.0-0.7) Basophils # (Auto) 0.0 x10^3/uL (0.0-0.2) Sodium Level 144 mmol/L (136-145) Potassium Level 4.1 mmol/L (3.5-5.1) Chloride Level 103 mmol/L (98-107) Carbon Dioxide Level 35 mmol/L (21-32) Anion Gap 6 (6-14) Blood Urea Nitrogen 46 mg/dL (7-20) Creatinine 1.7 mg/dL (0.6-1.0) Estimated GFR (Cockcroft-Gault) 28.3 Glucose Level 295 mg/dL (70-99) Calcium Level 8.8 mg/dL (8.5-10.1) Magnesium Level 2.0 mg/dL (1.8-2.4) Review of Systems Review of Systems Cough, SOA on exertion, easy fatigability, the rest of ROS 14 point negative Assessment and Plan Assessmemt and Plan Problems Medical Problems: (1) Acute respiratory distress Status: Acute (2) Anemia Status: Acute (3) CAP (community acquired pneumonia) Status: Acute (4) COPD exacerbation Status: Acute (5) Fever Status: Acute (6) Heart failure Status: Acute (7) Pleural effusion Status: Acute (8) Renal insufficiency Status: Acute Comment Review of Relevant I have reviewed the following items alexei (where applicable) has been applied. Labs Laboratory Tests Test 02/08/19 17:31 02/08/19 21:15 02/09/19 07:34 02/09/19 11:55 Glucose (Fingerstick) 246 mg/dL (70-99) 250 mg/dL (70-99) 248 mg/dL (70-99) 268 mg/dL (70-99) Test 02/09/19 17:04 02/09/19 20:46 02/10/19 08:00 02/10/19 10:00 Glucose (Fingerstick) 223 mg/dL (70-99) 233 mg/dL (70-99) 195 mg/dL (70-99) White Blood Count 9.6 x10^3/uL (4.0-11.0) Red Blood Count 3.65 x10^6/uL (3.50-5.40) Hemoglobin 11.0 g/dL (12.0-15.5) Hematocrit 34.7 % (36.0-47.0) Mean Corpuscular Volume 95 fL (79-100) Mean Corpuscular Hemoglobin 30 pg (25-35) Mean Corpuscular Hemoglobin Concent 32 g/dL (31-37) Red Cell Distribution Width 15.5 % (11.5-14.5) Platelet Count 198 x10^3/uL (140-400) Neutrophils (%) (Auto) 94 % (31-73) Lymphocytes (%) (Auto) 4 % (24-48) Monocytes (%) (Auto) 2 % (0-9) Eosinophils (%) (Auto) 0 % (0-3) Basophils (%) (Auto) 0 % (0-3) Neutrophils # (Auto) 9.0 x10^3uL (1.8-7.7) Lymphocytes # (Auto) 0.4 x10^3/uL (1.0-4.8) Monocytes # (Auto) 0.2 x10^3/uL (0.0-1.1) Eosinophils # (Auto) 0.0 x10^3/uL (0.0-0.7) Basophils # (Auto) 0.0 x10^3/uL (0.0-0.2) Sodium Level 144 mmol/L (136-145) Potassium Level 4.1 mmol/L (3.5-5.1) Chloride Level 103 mmol/L (98-107) Carbon Dioxide Level 35 mmol/L (21-32) Anion Gap 6 (6-14) Blood Urea Nitrogen 46 mg/dL (7-20) Creatinine 1.7 mg/dL (0.6-1.0) Estimated GFR (Cockcroft-Gault) 28.3 Glucose Level 295 mg/dL (70-99) Calcium Level 8.8 mg/dL (8.5-10.1) Magnesium Level 2.0 mg/dL (1.8-2.4) Laboratory Tests Test 02/09/19 11:55 02/09/19 17:04 02/09/19 20:46 02/10/19 08:00 Glucose (Fingerstick) 268 mg/dL (70-99) 223 mg/dL (70-99) 233 mg/dL (70-99) 195 mg/dL (70-99) Test 02/10/19 10:00 White Blood Count 9.6 x10^3/uL (4.0-11.0) Red Blood Count 3.65 x10^6/uL (3.50-5.40) Hemoglobin 11.0 g/dL (12.0-15.5) Hematocrit 34.7 % (36.0-47.0) Mean Corpuscular Volume 95 fL (79-100) Mean Corpuscular Hemoglobin 30 pg (25-35) Mean Corpuscular Hemoglobin Concent 32 g/dL (31-37) Red Cell Distribution Width 15.5 % (11.5-14.5) Platelet Count 198 x10^3/uL (140-400) Neutrophils (%) (Auto) 94 % (31-73) Lymphocytes (%) (Auto) 4 % (24-48) Monocytes (%) (Auto) 2 % (0-9) Eosinophils (%) (Auto) 0 % (0-3) Basophils (%) (Auto) 0 % (0-3) Neutrophils # (Auto) 9.0 x10^3uL (1.8-7.7) Lymphocytes # (Auto) 0.4 x10^3/uL (1.0-4.8) Monocytes # (Auto) 0.2 x10^3/uL (0.0-1.1) Eosinophils # (Auto) 0.0 x10^3/uL (0.0-0.7) Basophils # (Auto) 0.0 x10^3/uL (0.0-0.2) Sodium Level 144 mmol/L (136-145) Potassium Level 4.1 mmol/L (3.5-5.1) Chloride Level 103 mmol/L (98-107) Carbon Dioxide Level 35 mmol/L (21-32) Anion Gap 6 (6-14) Blood Urea Nitrogen 46 mg/dL (7-20) Creatinine 1.7 mg/dL (0.6-1.0) Estimated GFR (Cockcroft-Gault) 28.3 Glucose Level 295 mg/dL (70-99) Calcium Level 8.8 mg/dL (8.5-10.1) Magnesium Level 2.0 mg/dL (1.8-2.4) Microbiology 02/08/19 Blood Culture - Preliminary, Resulted NO GROWTH AFTER 2 DAYS Medications Current Medications Sodium Chloride 1,000 ml @ 1,000 mls/hr Q1H IV Last administered on 02/08/19at 10:15; Start 02/08/19 at 09:45; Stop 02/08/19 at 10:44; Status DC Albuterol/ Ipratropium (Duoneb) 3 ml 1X ONCE NEB Last administered on 02/08/19at 09:45; Start 02/08/19 at 09:45; Stop 02/08/19 at 09:49; Status DC Methylprednisolone Sodium Succinate (SOLU-Medrol 125MG VIAL) 125 mg 1X ONCE IV Last administered on 02/08/19at 10:15; Start 02/08/19 at 09:45; Stop 02/08/19 at 09:49; Status DC Acetaminophen (Tylenol) 1,000 mg 1X ONCE PO ; Start 02/08/19 at 09:45; Stop 02/08/19 at 09:49; Status DC Acetaminophen (Tylenol) 1,000 mg 1X ONCE PO Last administered on 02/08/19at 10:15; Start 02/08/19 at 10:15; Stop 02/08/19 at 10:16; Status DC Ceftriaxone Sodium (Rocephin) 1 gm 1X ONCE IVP Last administered on 02/08/19 10:50; Start 02/08/19 at 10:15; Stop 02/08/19 at 10:18; Status DC Prednisone (Prednisone) 40 mg DAILY PO ; Start 02/09/19 at 09:00; Stop 02/09/19 at 09:00; Status DC Albuterol/ Ipratropium (Duoneb) 3 ml Q4HRS W/A NEB Last administered on 02/10/19 08:45; Start 02/08/19 at 18:00 Allopurinol (Zyloprim) 300 mg DAILY PO Last administered on 02/10/19 09:35; Start 02/08/19 at 16:00 Amlodipine Besylate (Norvasc) 10 mg DAILY PO Last administered on 02/10/19 09:37; Start 02/08/19 at 16:00 Aspirin (Ecotrin) 81 mg HS PO Last administered on 02/09/19 21:32; Start 02/08/19 at 21:00 Duloxetine HCl (Cymbalta) 30 mg HS PO Last administered on 02/09/19 21:32; Start 02/08/19 at 21:00 Furosemide (Lasix) 40 mg DAILY PO Last administered on 02/10/19 09:34; Start 02/08/19 at 16:00 Levothyroxine Sodium (Synthroid) 100 mcg DAILY07 PO Last administered on 02/10/19 06:31; Start 02/08/19 at 16:00 Donepezil HCl (Aricept) 10 mg DAILY PO Last administered on 02/10/19 09:37; Start 02/08/19 at 16:00 Lisinopril (Prinivil) 20 mg BID PO Last administered on 02/10/19 09:37; Start 02/08/19 at 21:00 Fluticasone Propionate (Flonase) 2 spray DAILY NS Last administered on 02/10/19 09:38; Start 02/09/19 at 09:00 Glipizide (Glucotrol Er) 5 mg DAILY08 PO Last administered on 02/10/19 09:37; Start 02/09/19 at 08:00 Memantine (Namenda) 5 mg BID PO Last administered on 02/10/19 09:37; Start 02/08/19 at 21:00 Potassium Chloride (Klor-Con) 10 meq DAILYWBKFT PO Last administered on 02/10/19 09:48; Start 02/09/19 at 08:00 Carvedilol (Coreg) 6.25 mg BIDWMEALS PO Last administered on 02/10/19 09:35; Start 02/08/19 at 17:00 Enoxaparin Sodium (Lovenox 30mg Syringe) 30 mg Q24H SQ Last administered on 02/09/19 21:34; Start 02/08/19 at 21:00 Ceftriaxone Sodium (Rocephin) 1 gm Q24H IVP Last administered on 02/10/19 09:39; Start 02/09/19 at 09:00 Doxycycline Hyclate (Vibra-Tab) 100 mg BID PO Last administered on 02/10/19 09:36; Start 02/08/19 at 21:00 Methylprednisolone Sodium Succinate (SOLU-Medrol 125MG VIAL) 125 mg BID IV Last administered on 02/09/19 21:32; Start 02/08/19 at 21:00; Stop 02/10/19 at 09:10; Status DC Guaifenesin (Robitussin Dm) 10 ml QID PO Last administered on 02/10/19 09:38; Start 02/09/19 at 13:00 Benzonatate (Tessalon Perle) 100 mg [id number] PO Last administered on 02/10/19 09:36; Start 02/09/19 at 13:00 Insulin Human Lispro (HumaLOG) 0-9 UNITS TIDWMEALS SQ Last administered on 02/10/19 10:06; Start 02/09/19 at 17:00 Dextrose (Dextrose 50%-Water Syringe) 12.5 gm PRN Q15MIN PRN IV SEE COMMENTS; Start 02/09/19 at 12:45 Lactobacillus Rhamnosus (Culturelle) 1 cap BID PO Last administered on 02/10/19 09:34; Start 02/09/19 at 21:00 Furosemide (Lasix) 20 mg 1X ONCE IVP Last administered on 02/09/19 16:57; Start 02/09/19 at 14:45; Stop 02/09/19 at 14:46; Status DC Methylprednisolone Sodium Succinate (SOLU-Medrol 125MG VIAL) 60 mg BID IV ; Start 02/10/19 at 21:00 Active Scripts Active Reported Flonase Allergy Relief (Fluticasone Propionate) 9.9 Ml [place].susp 2 Sprays NS DAILY Aspirin Ec (Aspirin) 81 Mg Tablet.dr 1 Tab PO DAILYWSUP Glipizide Er (Glipizide) 5 Mg Tab.er.24 1 Tab PO DAILY Potassium Chloride 20 Meq Tablet.er 40 Meq PO DAILY Amlodipine Besylate 10 Mg Tablet 10 Mg PO DAILY Namenda (Memantine Hcl) 10 Mg Tablet 5 Mg PO BID Synthroid (Levothyroxine Sodium) 100 Mcg Tablet 100 Mcg PO DAILY Lasix (Furosemide) 40 Mg Tablet 40 Mg PO DAILY Vasotec (Enalapril Maleate) 20 Mg Tablet 20 Mg PO BID Cymbalta (Duloxetine Hcl) 30 Mg Capsule.dr 30 Mg PO HS Aricept (Donepezil Hcl) 10 Mg Tablet 10 Mg PO DAILY Carvedilol 25 Mg Tablet 25 Mg PO BIDWMEALS Aspir 81 (Aspirin) 81 Mg Tablet.dr 81 Mg PO HS Allopurinol 300 Mg Tablet 300 Mg PO DAILY Vitals/I & O Vital Sign - Last 24 Hours 02/09/19 02/09/19 02/09/19 02/09/19 13:12 15:00 16:40 16:57 Temp 98.4 98.4 Pulse 95 95 Resp 20 B/P (MAP) 113/63 (80) 113/63 Pulse Ox 95 95 O2 Delivery Nasal Cannula Nasal Cannula Nasal Cannula O2 Flow Rate 3.0 3.0 2.0 02/09/19 02/09/19 02/09/19 02/09/19 19:20 20:00 21:33 21:46 Temp 98.6 98.6 Pulse 100 100 Resp 20 B/P (MAP) 138/71 (93) 138/71 Pulse Ox 96 O2 Delivery Nasal Cannula Nasal Cannula Nasal Cannula O2 Flow Rate 3.0 3.0 2.0 02/09/19 02/10/19 02/10/19 02/10/19 23:20 03:25 07:00 08:40 Temp 98.1 98.3 97.9 98.1 98.3 97.9 Pulse 100 105 101 Resp 20 20 20 B/P (MAP) 134/65 (88) 145/76 (99) 133/62 (85) Pulse Ox 95 93 93 96 O2 Delivery Nasal Cannula Nasal Cannula Nasal Cannula Nasal Cannula O2 Flow Rate 3.0 3.0 3.0 3.0 02/10/19 02/10/19 02/10/19 09:35 09:37 09:37 Pulse 101 101 101 B/P (MAP) 133/62 133/62 133/62 Intake and Output 02/09/19 02/09/19 02/10/19 15:00 23:00 07:00 Intake Total 320 ml 150 ml 400 ml Balance 320 ml 150 ml 400 ml ROSEMARIE LUCIO MD February 10, 2019 11:11
--- NOTE | 2019-02-10 14:21 | PDOC ---
CARDIO Progress Notes Date and Time Date of Service 02/10/19 Time of Evaluation 1410 Subjective Subjective: No Chest Pain, No Palpitations, Other (less SOA) Vitals Vitals Vital Signs Date Time Temp Pulse Resp B/P (MAP) Pulse Ox O2 Delivery O2 Flow Rate FiO2 02/10/19 12:13 95 Nasal Cannula 2.0 02/10/19 11:00 98.4 98 22 129/65 (86) 98.4 Weight Weight [ ] Input and Output Intake and Output Intake and Output 02/10/19 07:00 Intake Total 870 ml Balance 870 ml Intake Oral 870 ml # Voids 4 Laboratory Labs Laboratory Tests Test 02/09/19 17:04 02/09/19 20:46 02/10/19 08:00 02/10/19 10:00 Glucose (Fingerstick) 223 mg/dL (70-99) 233 mg/dL (70-99) 195 mg/dL (70-99) White Blood Count 9.6 x10^3/uL (4.0-11.0) Red Blood Count 3.65 x10^6/uL (3.50-5.40) Hemoglobin 11.0 g/dL (12.0-15.5) Hematocrit 34.7 % (36.0-47.0) Mean Corpuscular Volume 95 fL (79-100) Mean Corpuscular Hemoglobin 30 pg (25-35) Mean Corpuscular Hemoglobin Concent 32 g/dL (31-37) Red Cell Distribution Width 15.5 % (11.5-14.5) Platelet Count 198 x10^3/uL (140-400) Neutrophils (%) (Auto) 94 % (31-73) Lymphocytes (%) (Auto) 4 % (24-48) Monocytes (%) (Auto) 2 % (0-9) Eosinophils (%) (Auto) 0 % (0-3) Basophils (%) (Auto) 0 % (0-3) Neutrophils # (Auto) 9.0 x10^3uL (1.8-7.7) Lymphocytes # (Auto) 0.4 x10^3/uL (1.0-4.8) Monocytes # (Auto) 0.2 x10^3/uL (0.0-1.1) Eosinophils # (Auto) 0.0 x10^3/uL (0.0-0.7) Basophils # (Auto) 0.0 x10^3/uL (0.0-0.2) Sodium Level 144 mmol/L (136-145) Potassium Level 4.1 mmol/L (3.5-5.1) Chloride Level 103 mmol/L (98-107) Carbon Dioxide Level 35 mmol/L (21-32) Anion Gap 6 (6-14) Blood Urea Nitrogen 46 mg/dL (7-20) Creatinine 1.7 mg/dL (0.6-1.0) Estimated GFR (Cockcroft-Gault) 28.3 Glucose Level 295 mg/dL (70-99) Calcium Level 8.8 mg/dL (8.5-10.1) Magnesium Level 2.0 mg/dL (1.8-2.4) Test 02/10/19 11:25 Glucose (Fingerstick) 244 mg/dL (70-99) Microbiology Micro Microbiology 02/08/19 Blood Culture - Preliminary, Resulted NO GROWTH AFTER 2 DAYS Physical Exam HEENT: Neck Supple W Full Motion Chest: Symmetric LUNGS: Other (faint bibasilar crackles) Heart: S1S2, RRR Abdomen: Soft N/T Extremities: No Edema Neurology: alert, follow commands Assessment Assessment 1. Acute respiratory failure; multifactorial with AECOPD, a/c diastolic HF, and possible PNA 2. Acute on chronic diastolic CHF; Echo showed LVEF >55% and normal WM. Better compensated 3. JANNETTE on CKD 4. Leukocytosis, fevers, PNA 5. Hypertension; controlled 6. Diabetes, II 7. Hypothyroidism 8. Dementia Recommendations Continue oral lasix Ongoing antibiotics/steroids Supportive care May transfer to SNU from CV standpoint MOOK KOVACS APRN February 10, 2019 14:21
--- NOTE | 2019-02-10 14:33 | NUR ---
FADY following pt. PT/OT recommends SNU. FADY spoke with pt's daughter, Claudia via phone and she reported family wants [facility]. Claudia reported her sister is currently at [facility] and they would like pt to go there. FADY spoke with mayelin at regarding pt as FADY is unable to fax referral as power has been down at . Mayelin reported they are familiar with pt's family and will be able to take pt upon dc. FADY will fax clinicals once power is restored. Will continue to follow.
[2019-02-10 15:00] VITALS: BP 137/68
[2019-02-10 19:20] VITALS: BP 134/64
[2019-02-10] MEDS: methylPREDNISolone SOD SUCC PF 125 MG/2 ML VIAL. IV SCH (22:00)
[2019-02-10] MEDS: ASPIRIN ENTERIC COATED 81 MG TABLET.DR. PO SCH (22:01)
[2019-02-10] MEDS: DULoxetine HCL 30 MG CAPSULE.DR PO SCH (22:01)
[2019-02-10] MEDS: ENOXAPARIN 30 MG/0.3 ML SYRINGE. SQ SCH (22:02)
[2019-02-10 23:51] VITALS: BP 145/75
[2019-02-11 03:34] VITALS: BP 156/78
[2019-02-11] MEDS: LEVOTHYROXINE 100 MCG TABLET PO SCH (06:21)
[2019-02-11 07:56] VITALS: BP 155/81
[2019-02-11] MEDS: IPRATRPIUM/ALBUTEROL 0.5/2.5MG 3 ML NEBU. NEB SCH ×2 (07:56→12:04)
[2019-02-11] MEDS: INSULIN LISPRO 300 UNITS/3 ML INSULN.PEN. SQ SCH (08:00)
--- NOTE | 2019-02-11 08:12 | NUR ---
SW following pt. Pt has been accepted at [facility] and facility will have a bed available upon dc. Physician notified. Will continue to follow.
[2019-02-11] MEDS: guaiFENesin DM 200MG/20MG 10 ML SYRUP PO SCH (08:36)
[2019-02-11] MEDS: FLUTICASONE 50MCG/NASAL SPRAY 16GM BOTTLE. NS SCH (08:37)
[2019-02-11] MEDS: amLODIPine BESYLATE 10 MG TABLET PO SCH (08:37)
[2019-02-11] MEDS: FUROSEMIDE 40 MG TABLET. PO SCH (08:37)
[2019-02-11] MEDS: methylPREDNISolone SOD SUCC PF 125 MG/2 ML VIAL. IV SCH (08:37)
[2019-02-11] MEDS: DOXYCYCLINE HYCLATE 100 MG TABLET PO SCH (08:38)
[2019-02-11] MEDS: POTASSIUM CHLORIDE 10 MEQ TABLET.ER. PO SCH (08:38)
[2019-02-11] MEDS: BENZONATATE 100 MG CAPSULE. PO SCH (08:38)
[2019-02-11] MEDS: ALLOPURINOL 300 MG TABLET. PO SCH (08:38)
[2019-02-11] MEDS: DONEPEZIL HCL 10 MG TABLET. PO SCH (08:38)
[2019-02-11] MEDS: CARVEDILOL 6.25 MG TABLET. PO SCH (08:38)
[2019-02-11] MEDS: LISINOPRIL 20 MG TABLET PO SCH (08:39)
[2019-02-11] MEDS: LACTOBACILLUS RHAMNOSUS GG 1 CAPSULE. PO SCH (08:39)
[2019-02-11] MEDS: glipiZIDE ER 2.5 MG TAB.ER.24 PO SCH (08:39)
[2019-02-11] MEDS: MEMANTINE 5 MG TABLET. PO SCH (08:39)
--- NOTE | 2019-02-11 09:56 | PDOC ---
PULMONARY PROGRESS NOTES Subjective less cough, no soa Vitals Vital Signs Date Time Temp Pulse Resp B/P (MAP) Pulse Ox O2 Delivery O2 Flow Rate FiO2 02/11/19 08:39 83 155/81 02/11/19 07:58 95 Nasal Cannula 2.0 02/11/19 07:56 98.0 20 98.0 General: Alert, No acute distress Lungs: Other (less rhonchi, diminshed) Cardiovascular: S1 Abdomen: Soft Neuro Exam: Alert Extremities: Other (RL extremity soft tissue swelling) Skin: Warm Labs Laboratory Tests Test 02/09/19 11:55 02/09/19 17:04 02/09/19 20:46 02/10/19 08:00 Glucose (Fingerstick) 268 mg/dL (70-99) 223 mg/dL (70-99) 233 mg/dL (70-99) 195 mg/dL (70-99) Test 02/10/19 10:00 02/10/19 11:25 02/10/19 17:11 02/10/19 20:56 White Blood Count 9.6 x10^3/uL (4.0-11.0) Red Blood Count 3.65 x10^6/uL (3.50-5.40) Hemoglobin 11.0 g/dL (12.0-15.5) Hematocrit 34.7 % (36.0-47.0) Mean Corpuscular Volume 95 fL (79-100) Mean Corpuscular Hemoglobin 30 pg (25-35) Mean Corpuscular Hemoglobin Concent 32 g/dL (31-37) Red Cell Distribution Width 15.5 % (11.5-14.5) Platelet Count 198 x10^3/uL (140-400) Neutrophils (%) (Auto) 94 % (31-73) Lymphocytes (%) (Auto) 4 % (24-48) Monocytes (%) (Auto) 2 % (0-9) Eosinophils (%) (Auto) 0 % (0-3) Basophils (%) (Auto) 0 % (0-3) Neutrophils # (Auto) 9.0 x10^3uL (1.8-7.7) Lymphocytes # (Auto) 0.4 x10^3/uL (1.0-4.8) Monocytes # (Auto) 0.2 x10^3/uL (0.0-1.1) Eosinophils # (Auto) 0.0 x10^3/uL (0.0-0.7) Basophils # (Auto) 0.0 x10^3/uL (0.0-0.2) Sodium Level 144 mmol/L (136-145) Potassium Level 4.1 mmol/L (3.5-5.1) Chloride Level 103 mmol/L (98-107) Carbon Dioxide Level 35 mmol/L (21-32) Anion Gap 6 (6-14) Blood Urea Nitrogen 46 mg/dL (7-20) Creatinine 1.7 mg/dL (0.6-1.0) Estimated GFR (Cockcroft-Gault) 28.3 Glucose Level 295 mg/dL (70-99) Calcium Level 8.8 mg/dL (8.5-10.1) Magnesium Level 2.0 mg/dL (1.8-2.4) Glucose (Fingerstick) 244 mg/dL (70-99) 191 mg/dL (70-99) 163 mg/dL (70-99) Test 02/11/19 07:37 Glucose (Fingerstick) 108 mg/dL (70-99) Laboratory Tests Test 02/10/19 10:00 02/10/19 11:25 02/10/19 17:11 02/10/19 20:56 White Blood Count 9.6 x10^3/uL (4.0-11.0) Red Blood Count 3.65 x10^6/uL (3.50-5.40) Hemoglobin 11.0 g/dL (12.0-15.5) Hematocrit 34.7 % (36.0-47.0) Mean Corpuscular Volume 95 fL (79-100) Mean Corpuscular Hemoglobin 30 pg (25-35) Mean Corpuscular Hemoglobin Concent 32 g/dL (31-37) Red Cell Distribution Width 15.5 % (11.5-14.5) Platelet Count 198 x10^3/uL (140-400) Neutrophils (%) (Auto) 94 % (31-73) Lymphocytes (%) (Auto) 4 % (24-48) Monocytes (%) (Auto) 2 % (0-9) Eosinophils (%) (Auto) 0 % (0-3) Basophils (%) (Auto) 0 % (0-3) Neutrophils # (Auto) 9.0 x10^3uL (1.8-7.7) Lymphocytes # (Auto) 0.4 x10^3/uL (1.0-4.8) Monocytes # (Auto) 0.2 x10^3/uL (0.0-1.1) Eosinophils # (Auto) 0.0 x10^3/uL (0.0-0.7) Basophils # (Auto) 0.0 x10^3/uL (0.0-0.2) Sodium Level 144 mmol/L (136-145) Potassium Level 4.1 mmol/L (3.5-5.1) Chloride Level 103 mmol/L (98-107) Carbon Dioxide Level 35 mmol/L (21-32) Anion Gap 6 (6-14) Blood Urea Nitrogen 46 mg/dL (7-20) Creatinine 1.7 mg/dL (0.6-1.0) Estimated GFR (Cockcroft-Gault) 28.3 Glucose Level 295 mg/dL (70-99) Calcium Level 8.8 mg/dL (8.5-10.1) Magnesium Level 2.0 mg/dL (1.8-2.4) Glucose (Fingerstick) 244 mg/dL (70-99) 191 mg/dL (70-99) 163 mg/dL (70-99) Test 02/11/19 07:37 Glucose (Fingerstick) 108 mg/dL (70-99) Medications Active Scripts Medications Dose Route/Sig Max Daily Dose Days Date Category Flonase Allergy Relief (Fluticasone Propionate) 9.9 Ml [place].susp 2 Sprays NS DAILY 02/08/19 Reported Aspirin Ec (Aspirin) 81 Mg Tablet.dr 1 Tab PO DAILYWSUP 02/08/19 Reported Glipizide Er (Glipizide) 5 Mg Tab.er.24 1 Tab PO DAILY 02/08/19 Reported Potassium Chloride 20 Meq Tablet.er 40 Meq PO DAILY 06/26/18 Reported Amlodipine Besylate 10 Mg Tablet 10 Mg PO DAILY 06/26/18 Reported Namenda (Memantine Hcl) 10 Mg Tablet 5 Mg PO BID 10/16/16 Reported Synthroid (Levothyroxine Sodium) 100 Mcg Tablet 100 Mcg PO DAILY 10/16/16 Reported Lasix (Furosemide) 40 Mg Tablet 40 Mg PO DAILY 10/16/16 Reported Vasotec (Enalapril Maleate) 20 Mg Tablet 20 Mg PO BID 10/16/16 Reported Cymbalta (Duloxetine Hcl) 30 Mg Capsule.dr 30 Mg PO HS 10/16/16 Reported Aricept (Donepezil Hcl) 10 Mg Tablet 10 Mg PO DAILY 10/16/16 Reported Carvedilol 25 Mg Tablet 25 Mg PO BIDWMEALS 10/16/16 Reported Aspir 81 (Aspirin) 81 Mg Tablet.dr 81 Mg PO HS 10/16/16 Reported Allopurinol 300 Mg Tablet 300 Mg PO DAILY 10/16/16 Reported Impression . 1. Acute on chronic hypoxemic respiratory failure. 2. Fever/ bilateral infiltrate c/w pneumonia 3. Abnormal CXR 4. ? superimposed Acute on chronic systolic and diastolic heart failure. 5. Dementia. 6. Obesity. 7. Hypothyroidism. 8. Chronic kidney disease. 9. Fever. Plan . 1. change to PO Abx 2. Steroids taper, change to PO 3. Diurese. 4. clinically better 5. ok with skill 6. d/w daughter 7. echo 2017 with normal EF MARU BUSTAMANTE MD February 11, 2019 09:55
--- NOTE | 2019-02-11 11:11 | SNU/HH DC ---
DISCHARGE ORDERS DISCHARGE INFORMATION: FINAL DIAGNOSIS Problems Medical Problems: (1) Acute respiratory distress Status: Acute (2) Anemia Status: Acute (3) CAP (community acquired pneumonia) Status: Acute (4) COPD exacerbation Status: Acute (5) Fever Status: Acute (6) Heart failure Status: Acute (7) Pleural effusion Status: Acute (8) Renal insufficiency Status: Acute CONDITION ON DISCHARGE: Stable CODE STATUS: Code Status: Full SHELTER: SNF STAY <30 DAYS: Yes HOSPICE: HOSPICE: No HOSPICE EVAL & TREAT: No LTAC: ADMIT TO LTAC: No POST DISCHARGE ORDERS: ACTIVITY ORDERS: Bedrest today DIET AFTER DISCHARGE: Cardiac TREATMENT/EQUIPMENT ORDERS: ADAPTIVE EQUIPMENT NEEDED: Front wheeled walker Physical Therapy For: Evalulation/Treatment Occupational Therapy For: Evaluation/Treatment DISCHARGE MEDICATIONS: Home Meds Reported Medications Fluticasone Propionate (Flonase Allergy Relief) 9.9 Ml [place].susp, 2 SPRAYS NS DAILY for unknown, BOTTLE 02/08/19 Aspirin (ASPIRIN EC) 81 Mg Tablet.dr, 1 TAB PO DAILYWSUP for unknown, #30 TAB 3 Refills 02/08/19 Glipizide (GLIPIZIDE ER) 5 Mg Tab.er.24, 1 TAB PO DAILY for DM, #30 TAB 5 Refills 02/08/19 Potassium Chloride (POTASSIUM CHLORIDE) 20 Meq Tablet.er, 40 MEQ PO DAILY, TAB.SR 06/26/18 Amlodipine Besylate (AMLODIPINE BESYLATE) 10 Mg Tablet, 10 MG PO DAILY, TAB 06/26/18 Memantine Hcl (NAMENDA) 10 Mg Tablet, 5 MG PO BID 10/16/16 Levothyroxine Sodium (SYNTHROID) 100 Mcg Tablet, 100 MCG PO DAILY for THYROID SUPPLEMENT 10/16/16 Furosemide (LASIX) 40 Mg Tablet, 40 MG PO DAILY 10/16/16 Enalapril Maleate (VASOTEC) 20 Mg Tablet, 20 MG PO BID 10/16/16 Duloxetine Hcl (CYMBALTA) 30 Mg Capsule.dr, 30 MG PO HS 10/16/16 Donepezil Hcl (ARICEPT) 10 Mg Tablet, 10 MG PO DAILY for unknown 10/16/16 Carvedilol (CARVEDILOL) 25 Mg Tablet, 25 MG PO BIDWMEALS 10/16/16 Aspirin (ASPIR 81) 81 Mg Tablet.dr, 81 MG PO HS 10/16/16 Allopurinol (ALLOPURINOL) 300 Mg Tablet, 300 MG PO DAILY 10/16/16 JESSIE RIDDLE III DO February 11, 2019 11:11
[2019-02-11 11:24] VITALS: BP 152/68
--- NOTE | 2019-02-11 11:58 | NUR ---
SW following pt. Orders faxed to [facility] and pt will transport via central transport at 1400. Pt's choice and rights forms verbally consented by pt and copies on chart. Pt's daughter, Claudia notified of plan and agreeable. KENNEDY RN and Packet on chart.
--- NOTE | 2019-02-11 14:08 | NUR ---
Discharge Note: CAROLINA MARSH [address] [place] [address] Discharge instructions and discharge home medications reviewed with Other facility and a copy given. All questions have been answered and understanding verbalized. The following instructions and handouts were given: CAP Discontinued lines and drains: 1 x PIV intact Patient discharged to [facility]; report called to [facility] at 1400
--- NOTE | 2019-02-11 19:34 | DS ---
DATE OF DISCHARGE: 02/11/2019 ADMISSION DIAGNOSES: Acute on chronic hypoxic respiratory failure, pneumonia, superimposed acute on chronic systolic and diastolic heart failure. DISCHARGE DIAGNOSES: Resolving pneumonia, resolving respiratory failure, resolving heart failure, dementia, obesity, hypothyroidism, chronic kidney disease, fevers. CONSULTS: Cardiology and Pulmonary. PROCEDURES: None. HOSPITAL COURSE: The patient is a pleasant middle-aged female who presented with respiratory failure. It was multifactorial including pneumonia and heart failure. She was admitted. We gave her Lasix and IV antibiotics, breathing treatments, steroids, oxygen and the above consults were obtained. Over the past few days, she seems to return to her baseline. PHYSICAL EXAMINATION: GENERAL: I saw and examined her this morning. She was up in the chair. Her daughter was present. The patient seemed to be doing very well. She is doing great. HEART: Her heart tones were normal. LUNGS: Clear. EXTREMITIES: She had trace edema. SKIN: No obvious rashes. We plan to discharge to [facility]. DISPOSITION: Skilled. ACTIVITY: As tolerated. DIET: Low sodium. MEDICATIONS: Please see the MRAD. I did leave prescriptions for Medrol Dosepak and doxycycline 100 p.o. b.i.d. and resumed her home medications. Total time 33 minutes. JESSIE RIDDLE DO DR: CELIA/mariana JOB#: [id number] / [id number]
[2019-02-12] MEDS ORDERED: predniSONE 10 MG TABLET PO SCH (09:00)
== END 2019-02-11 14:15 | DRG 871 ==
LOC: ER 09:35 → 6 SOUTH 10:13
PROVIDERS: ADMIT Internal Medicine; ATTEND Internal Medicine
DX: A41.9 Sepsis, unspecified organism (principal); I50.43 Acute on chronic combined systolic (congestive) and diastolic (congestive) heart failure; J18.9 Pneumonia, unspecified organism; J96.21 Acute and chronic respiratory failure with hypoxia; I13.0 Hypertensive heart and chronic kidney disease with heart failure and stage 1 through stage 4 chronic kidney disease, or unspecified chronic kidney disease; J44.1 Chronic obstructive pulmonary disease with (acute) exacerbation; N18.4 Chronic kidney disease, stage 4 (severe); J44.0 Chronic obstructive pulmonary disease with (acute) lower respiratory infection; N17.9 Acute kidney failure, unspecified; Z68.32 Body mass index [BMI] 32.0-32.9, adult; D64.9 Anemia, unspecified; E03.9 Hypothyroidism, unspecified; E11.22 Type 2 diabetes mellitus with diabetic chronic kidney disease; F03.90 Unspecified dementia, unspecified severity, without behavioral disturbance, psychotic disturbance, mood disturbance, and anxiety; I70.0 Atherosclerosis of aorta; E66.9 Obesity, unspecified; M85.80 Other specified disorders of bone density and structure, unspecified site; Z66 Do not resuscitate; Z82.49 Family history of ischemic heart disease and other diseases of the circulatory system; Z96.653 Presence of artificial knee joint, bilateral; Z99.81 Dependence on supplemental oxygen; Z87.891 Personal history of nicotine dependence; M10.9 Gout, unspecified; M19.90 Unspecified osteoarthritis, unspecified site
CPT/HCPCS: 36415; 36600; 71045; 80048; 80053; 82550; 82805; 82962; 83605; 83735; 83880; 84484; 85007; 85025; 87040; 87804; 93005; 93306; 94640; 94760; 96361; 96374; 96375; J0696; J1650; J1815; J1940; J2930; J7030; J7620; 97110; 99291-25